=== PATIENT | male | born 1950 | race Caucasian/White ===

== ENCOUNTER 2019-09-14 09:56 | Inpatient (IN) | payer MEDICARE, BC, OTHER ==
[~2019-09-14] VITALS: Ht 172.7 cm; Wt 69.1 kg
[2019-09-14 12:55] VITALS: BP 137/77
[2019-09-14] MEDS ORDERED: ELIQ2.5T PO (13:14)
[2019-09-14] MEDS ORDERED: METO1TAB87 PO (13:14)
[2019-09-14] MEDS ORDERED: FLOR250C PO (13:14)
[2019-09-14] MEDS ORDERED: CALC667T2 PO (13:14)
[2019-09-14] MEDS ORDERED: FOLI1TAB11 PO (13:14)
[2019-09-14] MEDS ORDERED: FERR1TAB8 PO (13:14)
[2019-09-14] MEDS ORDERED: PANT40TA3 PO (13:14)
[2019-09-14] MEDS ORDERED: SODI650T PO (13:14)
[2019-09-14] MEDS ORDERED: CITA20TA7 PO (13:14)
[2019-09-14] MEDS ORDERED: LOPE1CAP5 PO (13:14)
[2019-09-14] MEDS ORDERED: AMLO5TAB6 PO (13:14)
[2019-09-14] MEDS ORDERED: ATOR40TA75 PO (13:14)
[2019-09-14] MEDS ORDERED: LEVE1INJ5 SQ (13:14)
[2019-09-14] MEDS ORDERED: RETA4000 INJ (13:14)
[2019-09-14] MEDS ORDERED: DEXTROSE 50% 50 ML SYRINGE IV PRN (13:45)
[2019-09-14] MEDS ORDERED: LOPERAMIDE 2 MG CAPLET PO PRN (13:45)
[2019-09-14] MEDS ORDERED: GLUCOSE 4 GM CHEW TABLET PO PRN (13:45)
[2019-09-14] MEDS ORDERED: GLUCAGON FOR INJ 1 MG VIAL (J1610) SC PRN (13:45)
[2019-09-14 13:57] LABS: HEMATOCRIT 30.8 % (42.0-52.0); HEMOGLOBIN 9.4 g/dl (13.5-17.5); MEAN CORPUSCULAR HEMOGLOBIN 30.1 pg (27.0-33.0); MEAN CORPUSCULAR HGB CONC 30.5 g/dl (32.0-36.5); MEAN CORPUSCULAR VOLUME 98.7 fl (80.0-96.0); PLATELET COUNT, AUTOMATED 381 10^3/uL (150-450); RED BLOOD COUNT 3.12 10^6/uL (4.30-6.10)
[2019-09-14 14:18] LABS: CREATININE FOR GFR 3.51 MG/DL (0.70-1.30); GLOMERULAR FILTRATION RATE 18.6 (>49); POTASSIUM SERUM 3.9 MEQ/L (3.5-5.1)
--- NOTE | 2019-09-14 14:42 | HPEPDOC ---
Commercial Lending Assistant Note DATE OF ADMISSION: 09-14-19 SOURCE OF ADMISSION INFORMATION: [facility] CHIEF COMPLAINT: stroke HISTORY OF PRESENT ILLNESS: 69M pmh PAD, HLD, HTN, DM, ESRD on HD, Colon Cancer s/p chemo/bowel resection In January 2019 with liver mets, Afib, diastolic CHF, chronic T10 and L1 compression fractures, ischemic stroke who presented to [facility] on 08-24-19 with right sided paresis, received tPA and later admitted to the stroke unit. MRI brain showed, Acute infarcts left M2 and GAMA territory with microhemorrhages in left M2 territory. CTA head and neck did not show large vessel occlusion, however there was noted to be 50-69% luminal diameter stenosis of the proximal right ICA secondary to calcified and soft plaque. His stroke was thought to be embolic in etiology with ECHO on 08-26-19 showing grade II diastolic dysfunctionmild aortic stenosis. He was started on Heparin and cleared by GI and neurology to tanisha bateman started on Eliquis. His AVF was malfunctioning for which a permacath was placed on 09-09-19 and he was instructed to have AVF replacement as outpatient with vascular surgery. 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 GI performed a colonoscopy and did not see significant ischemic changes. Infectious work-up was also negative. He was evaluated by therapy, found to have considerable deficits in mobility and ADL management and deemed medically appropriate for discharge to ARU on 09-14-19. On initial visit, patient states his last round of chemotherapy was provided in [facility] in early August and since then he has had diarrhea. REVIEW OF SYSTEMS: The following is a completed review of systems and has been reviewed. Review of systems otherwise unremarkable. PAIN: Patient self reports no pain EYES: No recent vision changes EARS, NOSE, & THROAT: No throat pain, or dysphagia, or rhinorrhea CARDIOVASCULAR: Denies chest pain or palpitations PULMONARY: Denies shortness of breath GASTROINTESTINAL: +diarrhea GENITOURINARY: denies dysuria MUSCULOSKELETAL:RLE>RUE weakness NEUROLOGICAL:+stroke HEMATOLOGICAL:+anemia SKIN: AVF and permacath PSYCHIATRIC: Unremarkable All other review of systems found to be negative. PAST MEDICAL HISTORY: as per HPI PAST SURGICAL HISTORY: HERNIA REPAIR, KNEE SURGERY, CHOLECYSTECTOMY, COLECTOMY COLONOSCOPY W/ POLYPECTOMY, AV FISTULA PLACEMENT ALLERGIES: Please see below. MEDICATIONS: Please see below. FAMILY HISTORY:diabetes SOCIAL HISTORY: +smokes cigars, no ETOH or illicit drugs DIET: renal PHYSICAL EXAMINATION: VITAL SIGNS: Please see below. GENERAL: Pleasant and cooperative. No acute distress. HEENT: PERRL. Extraocular movements intact. Clear conjunctiva CARDIOVASCULAR: Regular rate and rhythm. No murmurs, rubs, or gallops LUNGS: Clear to auscultation bilaterally. No wheezes. No rhonchi ABDOMEN: Soft, nontender, nondistended. Positive bowel sounds. Normal active bowel sounds NEUROLOGICAL: Alert and oriented times three. Cranial nerves II through XII grossly intact. Sensation grossly intact in all 3 limbs, except decreased to light touch RLE +mild expressive aphasia with word finding difficulty able to follow two-step commands +clonus right LE, brisk patellar reflex on right EXTREMITIES: 5\5 strength Left upper extremity, 4+/5 right UE 2/5 right hip flexors, knee extensors, 1/5 ankle DF, EHL, 2/5 PF 5/5 strength in left lower extremity. SKIN: Left IJ permacath, left AVF, no sacral ulcers LABORATORY DATA: Please see below. IMAGING:Imaging documentation personally reviewed by record FUNCTIONAL STATUS: Premorbid: Independent with all activities of daily life as well as mobility On Admission: Min- Maximum assistance for bathing, upper body dressing, bed chair and wheelchair transfers, toilet transfers, ambulation. GOALS: Mod-I functional transfers and household distances, dressing, toileting, supervision bathing, medical optimization, caregiver training. 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 Neuro: s/p left GAMA and M2 infarct in setting of Afib- c/u Eliquis 2.5mg BID, metoprolol, not on statin or ASA for secondary stroke prevention-will discuss with medicine -f/u outpatient neurology 3. Cardiac: grade 2 diastolic CHF with HTN and Afib- c/u metoprolol and Eliquis -will discuss statin and ASA with medicine who have been consulted to assist in management 4. Resp: encouage incentive spirometry 5. Renal: ESRD on HD // with recent episodes of hypokalamia- renal consulted 6. 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 GI: persistent diarrhea possible due to bowl ischemia vs reaction to recent chemotherapy -C diff and diarrhea panel negative -will check FOBT, c/u immodium, Bacid, and metamucil -hx of adenocarcinoma s/p resection and chemo- will need to follow-up with Oncologist 8. Endo: pmh DM c/u insulin therapy 9. : monitor PVRs 10. Psych: Celexa for depression 11. Dispo: TBD POST ADMISSION PHYSICIAN EVALUATION: Medical and functional status: Description of medical status, medical assessment: As above. Rehabilitation diagnosis and current and prior cold morbid medical conditions as above. Risk of complications and plans to mitigate them as above. Description of functional status current status is as above. Prior status as above. Status compared to preadmission: There are no clinically significant differences between the patient's current status and the information described on the preadmission screening document. Treatment plan anticipated: Treatment plan is as described above. Required disciplines including physical therapy, occupational therapy, others as noted above. Intensity of services: 3 hours a day, 6 days a week. Special considerations: There are no specific special or safety considerations that would likely preclude immediate implementation of an intensive rehabilitation program or subsequently influence the plan of care ATTESTATION: Considering all the information above, it is my best judgment that this patient requires intensive rehabilitation therapy as described above and an inpatient hospital environment due to the complexity of nursing, medical, and rehabilitation needs required by the patient. Furthermore, this patient can reasonably be expected to participate in an benefit from an inpatient rehabilitation stay with an interdisciplinary team approach to the delivery of rehabilitation care under the direction and supervision of rehabilitation physician. PROGNOSIS: Excellent. ESTIMATED LENGTH OF STAY:18-21 days. PROJECTED DISCHARGE DESTINATION: Home with family support and any durable medical equipment required to increase functional safety and mobility. TIME SPENT COUNSELING AND COORDINATING INITIAL CARE: Greater than 70 minutes. Vital Signs Vital Sign - Last 24 Hours 09/14/19 12:55 Temp 98.6 Pulse 85 Resp 16 B/P (MAP) 137/77 (97) Pulse Ox 100 O2 Delivery Room Air Laboratory Data CBC/BMP Laboratory Tests 09/14/19 13:30 Labs 24H Laboratory Tests 2 09/14/19 13:30: Nucleated Red Blood Cells % (auto) 0.0 Home Medications Scheduled Amlodipine Besylate (Amlodipine Besylate) 5 Mg Tablet, 5 MG PO DAILY, (Reported) HOME MEDICATION Apixaban (Eliquis) 2.5 Mg Tablet, 2.5 MG PO BID, (Reported) STARTED AT [facility] Atorvastatin Calcium (Atorvastatin Calcium) 40 Mg Tablet, 40 MG PO DAILY, (Reported) STARTED AT [facility] Calcium Acetate (Calcium Acetate) 667 Mg Tablet, 667 MG PO WM, (Reported) HOME MED Citalopram Hydrobromide (Citalopram HBr) 20 Mg Tablet, 20 MG PO DAILY, (Reported) HOME MED Epoetin Tyrone-Epbx (Retacrit) 4,000 Unit/1 Ml Vial, 8,000 UNIT INJ 3XW, (Reported) , , SAT Ferrous Sulfate (Ferrous Sulfate) 325 Mg Tablet, 325 MG PO DAILY, (Reported) STARTED AT [facility] Folic Acid (Folic Acid) 1 Mg Tablet, 1 MG PO DAILY, (Reported) HOME MED Insulin Detemir (Levemir Flextouch) 100 Unit/1 Ml Insuln.pen, 16 UNITS SQ BID, (Reported) HOME MED Metoprolol Tartrate (Metoprolol Tartrate) 25 Mg Tablet, 25 MG PO BID, (Reported) DOSE CHANGE AT [facility] - WAS ON TOPROL XL 50MG BID AT HOME Pantoprazole Sodium (Pantoprazole Sodium) 40 Mg Tablet.dr, 40 MG PO BID, (Reported) HOME MED Saccharomyces Boulardii (Florastor) 250 Mg Capsule, 250 MG PO BID, (Reported) STARTED AT [facility] Sodium Bicarbonate (Sodium Bicarbonate) 650 Mg Tablet, 1,300 MG PO TID, (Reported) STARTED AT [facility] Scheduled PRN Loperamide HCl (Loperamide) 2 Mg Capsule, 2 MG PO QID PRN for DIARRHEA, (Reported) STARTED AT [facility] Allergies Coded Allergies: enalapril (Verified Allergy, Unknown, 09/14/19) A-FIB/CHADSVASC A-FIB History Current/History of A-Fib/PAF?: Yes Current PO Anticoag Therapy: Yes VIANCA LEMUS MD Sep 14, 2019 14:42
[2019-09-14] MEDS ORDERED: CALCIUM ACETATE 667 MG GELCAP PO SCH (16:00)
--- NOTE | 2019-09-14 16:30 | CR ---
DATE OF CONSULTATION: 09/14/[address] ROBERTS CONSULTANTS: Hospitalist group Hospitalist group was consulted for general medical care. The patient was transferred from [facility] for rehabilitation. He had a complicated recent hospitalization that has been succinctly summarized by Dr. Roberts in her history and physical. The patient has end-stage renal disease, on dialysis, underwent partial colectomy with chemotherapy 01/27 for colon caner, liver metastases. He had a stroke 08/24/2019, presented with right hemiparesis, underwent thrombolysis. MRI showed acute infarcts, left M2 and GAMA territory with microhemorrhages in left M2 territory, is now on Eliquis. He has had some chronic diarrhea problems, had a recent colonoscopy. No significant ischemic changes were found. He had a CT angiogram that showed a 75% occlusion in the SMA, which was felt to be chronic. Recent echocardiogram 08/26/2019 showed mild aortic stenosis, grade 2 diastolic dysfunction, apparently normal ejection fraction. Other past medical history shows atrial fibrillation, history of a T10 and L1 compression fractures, chronic anemia, history of depression, type 2 diabetes now requiring insulin. MEDICATIONS: - Eliquis 2.5 mg twice a day - amlodipine 5 mg daily - atorvastatin 40 mg daily - calcium supplement - Celexa 20 mg daily - Retacrit 8000 units three times a week with dialysis - ferrous sulfate 325 mg daily - folic acid 1 mg daily - detemir insulin 16 units twice a day - loperamide 2 mg four times a day as needed - Lopressor 25 mg twice a day - Protonix 40 mg twice a day - probiotic supplement - sodium bicarbonate 1300 mg three times a day ALLERGIES: ENALAPRIL. SOCIAL HISTORY: Nonsmoker. No alcohol. He is . He lives in [place]. REVIEW OF SYSTEMS: He has some mild chronic abdominal pain. Denies hematemesis, epistaxis. He had some black stool recently. No polyuria or polydipsia. No chest pain. PHYSICAL EXAMINATION: Vital Signs: Per flow sheet. He is alert, conversant, in no distress. Mild right facial weakness. Pupils equal, round, and reactive to light. Tympanic membranes (TMs) normal, pharynx benign. Neck: No masses. Lungs: Clear. Heart: Regular rhythm, 1/6 systolic ejection murmur. Abdomen: Soft, nontender, no masses. Extremities: No clubbing, cyanosis, edema. Neurologic Exam: He had grade 4+ strength right upper extremity compared to 5/5 on the left, lower extremity is 3+ compared to 5/5 on the left side. LABORATORY: Sodium 134, potassium 3.9, creatinine 3.5. White count 16, hemoglobin 9.4, platelets 381. IMPRESSION: 1. Anemia with black stools. Stool has been checked for occult blood. Patient has been typed and screened. Repeat CBC has been ordered. Will continue Eliquis for now unless we see evidence of jasen significant bleeding. Should point out that should he have gastrointestinal (GI) bleeding, selective serotonin reuptake inhibitors (SSRIs), such as Celexa, increase the risk of GI bleeding, particularly in patients taking it anticoagulants. 2. Depression. As noted above, the Celexa might be contributing to the GI bleeding. Perhaps a different antidepressant could be considered. 3. Diabetes. Continue detemir insulin 10 units twice a day with sliding scale. 4. Atrial fibrillation, on Lopressor for rate control and blood pressure, as well as Eliquis. 5. Hyperlipidemia. He is on Lipitor 40 mg daily. 6. End-stage renal disease. Consult nephrology for dialysis. 7. Recent stroke. Avoid interrupting Eliquis unless there is significant bleeding. Rehabilitation per Dr. Roberts. Dr. Alvarado will be providing hospitalist for tomorrow.
[2019-09-14] MEDS: LACTOBACILLUS ACIDOPHILUS CAP (BACID) PO SCH ×2 (17:38→20:57)
[2019-09-14] MEDS: TETRAHYDROZOLINE OPHTH 0.05% 15 ML BTL OU SCH ×2 (17:38→20:59)
[2019-09-14] MEDS: SODIUM BICARBONATE 325 MG TAB PO SCH ×2 (17:38→20:57)
[2019-09-14] MEDS: HumaLOG INSULIN (NovoLOG) PER UNIT SC SCH ×2 (17:39→20:58)
[2019-09-14 20:00] VITALS: BP 133/81
[2019-09-14] MEDS: APIXABAN 2.5 MG TAB (ELIQUIS) PO SCH (20:57)
[2019-09-14] MEDS: PANTOPRAZOLE 40MG TAB (PROTONIX) PO SCH (20:57)
[2019-09-14] MEDS: METOPROLOL TART 25 MG TABLET PO SCH (20:58)
[2019-09-14] MEDS: LEVEMIR (INSULIN DETEMIR) 1 UNITS/0.01ML SC SCH (20:58)
[2019-09-15 06:00] VITALS: BP 137/76
[2019-09-15 07:41] LABS: BASO # 0.1 10^3/uL (0.0-0.2); BASO % 0.9 % (0.0-1.0); EOS # 0.1 10^3/uL (0.0-0.5); EOS % 0.9 % (0.0-3.0); HEMATOCRIT 27.1 % (42.0-52.0); HEMOGLOBIN 8.3 g/dl (13.5-17.5); LYMPH # 1.1 10^3/uL (1.5-5.0); LYMPH % 8.7 % (24.0-44.0); MEAN CORPUSCULAR HEMOGLOBIN 29.7 pg (27.0-33.0); MEAN CORPUSCULAR HGB CONC 30.6 g/dl (32.0-36.5); MEAN CORPUSCULAR VOLUME 97.1 fl (80.0-96.0); MONO # 1.1 10^3/uL (0.0-0.8); MONO % 9.1 % (0.0-5.0); NEUTROPHILS # 9.6 10^3/uL (1.5-8.5); NEUTROPHILS % 78.8 % (36.0-66.0); PLATELET COUNT, AUTOMATED 328 10^3/uL (150-450); RED BLOOD COUNT 2.79 10^6/uL (4.30-6.10); WHITE BLOOD COUNT 12.1 10^3/uL (4.0-10.0)
[2019-09-15 08:02] LABS: CALCIUM LEVEL 8.4 MG/DL (8.8-10.2); CREATININE FOR GFR 3.72 MG/DL (0.70-1.30); GLOMERULAR FILTRATION RATE 17.4 (>49); POTASSIUM SERUM 3.8 MEQ/L (3.5-5.1)
[2019-09-15] MEDS: LEVEMIR (INSULIN DETEMIR) 1 UNITS/0.01ML SC SCH ×2 (08:17→22:09)
[2019-09-15] MEDS: SODIUM BICARBONATE 325 MG TAB PO SCH (08:18)
[2019-09-15] MEDS: METOPROLOL TART 25 MG TABLET PO SCH ×2 (08:18→22:09)
[2019-09-15] MEDS: LACTOBACILLUS ACIDOPHILUS CAP (BACID) PO SCH ×3 (08:18→22:08)
[2019-09-15] MEDS: PANTOPRAZOLE 40MG TAB (PROTONIX) PO SCH ×2 (08:18→22:08)
[2019-09-15] MEDS: FOLIC ACID 1 MG TAB PO SCH (08:18)
[2019-09-15] MEDS: HumaLOG INSULIN (NovoLOG) PER UNIT SC SCH ×4 (08:18→21:00)
[2019-09-15] MEDS: ATORVASTATIN 20 MG TAB PO SCH (08:19)
[2019-09-15] MEDS: CALCIUM ACETATE 667 MG GELCAP PO SCH ×3 (08:19→17:38)
[2019-09-15] MEDS: CitaloPRAM (CeleXA) 20 MG TAB PO SCH (08:19)
[2019-09-15] MEDS: APIXABAN 2.5 MG TAB (ELIQUIS) PO SCH ×2 (08:19→22:08)
[2019-09-15] MEDS: TETRAHYDROZOLINE OPHTH 0.05% 15 ML BTL OU SCH ×3 (08:28→22:09)
[2019-09-15] MEDS: METAMUCIL (PSYLLIUM) PACKET PO SCH (08:28)
[2019-09-15] MEDS ORDERED: FLUBLOK(EGG FREE)(QUAD)INFLUENZA VACC 0.5ML SYRINGE (90682)18YRS&OLDER IM ONE (09:00)
[2019-09-15] MEDS ORDERED: FERROUS SULFATE 325MG TAB PO SCH (09:00)
[2019-09-15] MEDS ORDERED: DARBEPOETIN 100 MCG/0.5 ML *DIALYSIS* SYRINGE (J0882) IV SCH (09:00)
[2019-09-15] MEDS ORDERED: IRON SUCROSE 100MG 5ML VIAL (J1756 PER 1MG) IV SCH (09:00)
[2019-09-15 09:15] LABS: PERCENT SATURATION 15.2 % (19.7-50.0); PHOSPHORUS LEVEL 3.7 MG/DL (2.5-4.9)
[2019-09-15] MEDS ORDERED: HEPARIN 1,000 UNITS/ML 10ML VIAL (FOR RADIOLOGY& DIALYSIS ONLY) IV ONE (10:15)
[2019-09-15] MEDS ORDERED: HEPARIN 1,000 UNITS/ML 10ML VIAL (FOR RADIOLOGY& DIALYSIS ONLY) XX ONE (10:15)
[2019-09-15 11:28] LABS: PTH INTACT 106.1 PG/ML (18.5-88.0)
--- NOTE | 2019-09-15 12:16 | CR ---
DATE OF CONSULTATION: 09/15/2019 REQUESTING PHYSICIAN: Dr. Samantha Roberts. CONSULTING PHYSICIAN: Dr. Kaye. REASON FOR CONSULTATION: Management of end-stage renal disease on hemodialysis. CHIEF COMPLAINT: The patient was admitted to the rehab after a stroke. HISTORY OF PRESENT ILLNESS: Mr. Rocael Dunlap is a 69-year-old male with past medical history of end-stage renal disease on hemodialysis Saturday, Saturday, Saturday as outpatient but Saturday, , Saturday as inpatient, diabetes mellitus type 2, hypertension, hyperlipidemia, multiple other comorbidities as mentioned below. He had an ischemic stroke and he was admitted at [facility] on August 24, 2019 with right-sided paresis. After further workup and stabilization, the patient was started on Eliquis. He was dialyzed and when he was stable, he was discharged to the rehab unit at [facility]. Nephrology service was called for further help in the management of end-stage renal disease. I saw and evaluated the patient at the bedside this morning. He is afebrile and hemodynamically stable. He is able to answer just questions but he has difficulty with his speech. He otherwise follows commands. The patient reports that his left forearm arteriovenous (AV) fistula stopped working and he got the left internal jugular (IJ) tunneled hemodialysis catheter placed for dialysis, which is being used now. The patient is originally from [place]. PAST MEDICAL HISTORY: Past medical history of end-stage renal disease on hemodialysis started about 1 year ago, diabetes mellitus type 2, hypertension, hyperlipidemia with peripheral vascular disease history of carcinoma of the colon status post bowel resection and currently on chemotherapy. He has liver mets as well. Atrial fibrillation, chronic diastolic congestive heart failure, chronic T10 and L1 compression fractures and recent ischemic stroke in August 2019. The patient is undergoing chemotherapy in his work for carcinoma of the colon. PAST SURGICAL HISTORY Status post left IJ tunneled hemodialysis catheter placement on September 09, 2019, history of left forearm AV fistula which is not functioning now. History of hernia repair. Knee surgery status post cholecystectomy status post colectomy. ALLERGIES: The patient is allergic to ENALAPRIL. FAMILY HISTORY: No significant family history of end-stage renal disease requiring hemodialysis. SOCIAL HISTORY: There is no history of illicit drug abuse or alcohol abuse. He is a cigar smoker. REVIEW OF SYSTEMS: CONSTITUTIONAL: He denies any fevers or chills. EYES: He denies any blurry vision, double vision. ENT: Denies any dysphagia, odynophagia. CARDIOVASCULAR: Denies any chest pain or palpitation. RESPIRATORY: Denies any shortness of breath. GASTROINTESTINAL (GI): Denies any nausea, vomiting, but he does report history of CA of the colon with mets to the liver and getting chemotherapy. GENITOURINARY: He denies any dysuria or hematuria. MUSCULOSKELETAL: He reports right leg weakness. SKIN: He denies any rashes or ulcers. CENTRAL NERVOUS SYSTEM (QA AUDITOR): He reports the recent stroke and difficulty with speech. PSYCH: He denies any depression or anxiety. HEMATOLOGY/ONCOLOGY: He denies any easy bleeding or bruising. All other review of systems is negative. PHYSICAL EXAMINATION: GENERAL: The patient is awake, alert, oriented times three, laying in bed in no apparent distress. VITAL SIGNS: Temperature is 98.2 degrees Fahrenheit, blood pressure 137/76, pulse is 79, respiratory of 18, saturating 93% on room air. HEAD AND NECK EXAM: Extraocular muscles intact. Pupils equally round and reactive to light. Mucous membranes are moist. NECK: Neck is supple. There is no jugular venous distention (JVD). He has a left IJ tunneled hemodialysis catheter. CARDIOVASCULAR: S1, S2 regular rate. No edema of the bilateral lower extremities. RESPIRATORY: Chest is clear to auscultation bilaterally. Bilateral equal air entry. No rales or rhonchi. ABDOMEN: Soft, positive bowel sounds. Nontender. No organomegaly. GENITOURINARY: Bladder is not palpable. No hernia noted. He has old incision yaa and suprapubic region in the abdomen. MUSCULOSKELETAL: No clubbing or cyanosis. His power is at 2.5 in the right lower extremity. QA AUDITOR: The patient has right lower extremity weakness but power is hardly 2.5, otherwise far is 5/5 of the extremities and the patient has difficulty with speech and difficulty finding words SKIN: No rashes or ulcers. PSYCH: Normal mood and affect. LAB REVIEW: CBC showed WBC 12.1, hemoglobin 8.3, platelets are 328. BMP showed sodium 135, potassium 3.8, chloride 99, bicarb 29, BUN 31, creatinine is 3.7, glucose 98, phosphorus 3.7, iron is 31, transferrin saturation 15.2, ferritin is 345. Microbiology: Blood cultures are pending. CURRENT INPATIENT MEDICATIONS. The patient's current medications include: - Eliquis 2.5 mg by mouth twice a day - Lipitor 40 mg by mouth daily - PhosLo 667 mg by mouth with meals - Celexa 20 mg by mouth daily. I have started him on Aranesp 100 mcg IV with hemodialysis. I have stopped his oral iron. - He is on folic acid 1 mg by mouth daily. - insulin Levemir 10 units subcu twice a day - insulin lispro sliding scale. - I have started him on Venofer 100 mg IV with hemodialysis. - He is getting Imodium as needed for diarrhea. He is on metoprolol 25 mg by mouth twice a day - Protonix 40 mg by mouth twice a day. - He is on Metamucil 1 packet by mouth daily. I have stopped his sodium bicarbonate tablets which he was getting 1300 mg by mouth three times a day. ASSESSMENT: 69-year-old male with history of end-stage renal disease on hemodialysis, history of diabetes mellitus type 2, hypertension, CA colon status post colectomy and currently on chemotherapy admitted to rehab after a cerebrovascular accident (CVA) with right hemiparesis. PLAN: 1. End-stage renal disease on hemodialysis: The patient is getting a Saturday, and Saturday dialysis as inpatient. He will be dialyzed today in the afternoon. Ultrafiltration goal will be around the 1.5 liters as tolerated by his blood pressure. Continue the use of catheter at this time. The patient will get the AV fistula as outpatient once he is discharged from the hospital. 2. Anemia in end-stage renal disease: The patient has iron deficiency. I have started him on Venofer 100 mg IV with each dialysis x10 doses and he has also been started on Aranesp. No urgent need of blood transfusion at this time. 3. Hyponatremia: It is secondary to renal failure. Sodium level should improve with dialysis and fluid removal. 4. Metabolic acidosis: The patient's metabolic acidosis will be controlled with dialysis. He does not need to continue the oral sodium bicarbonate. I have stopped the bicarb carbonate tablets. 5. Chronic kidney disease, mineral bone disease. Continue current dose of PhosLo 667 mg by mouth with meals. Phosphorus level done today is 3.7 which is optimal. I have ordered a PTH level and result is still pending. 6. Diabetes mellitus type 2: Okay to continue insulin sliding scale and Levemir. Avoid use of metformin. 7. Acute CVA with history of atrial fibrillation. The patient is currently on Eliquis and metoprolol. He is also on Lipitor 40 mg by mouth daily. Rest of the management is as per medical service and rehabilitation. 8. CA of the colon with mets to the liver. The patient is currently on chemotherapy as outpatient. He has an [id number] in the left anterior chest wall. He needs to be evaluated by oncology. He gets chemotherapy done in [place]. Thank you for involving me in the care of this patient. I shall be happy to follow the patient along with you while he is in the rehab.
[2019-09-15 21:30] VITALS: BP 130/60
[2019-09-16 06:00] VITALS: BP 135/71
[2019-09-16] MEDS: HumaLOG INSULIN (NovoLOG) PER UNIT SC SCH ×4 (07:30→21:00)
[2019-09-16 08:10] LABS: BASO # 0.2 10^3/uL (0.0-0.2); BASO % 1.4 % (0.0-1.0); EOS # 0.1 10^3/uL (0.0-0.5); HEMATOCRIT 27.6 % (42.0-52.0); HEMOGLOBIN 8.4 g/dl (13.5-17.5); LYMPH # 1.1 10^3/uL (1.5-5.0); LYMPH % 10.3 % (24.0-44.0); MEAN CORPUSCULAR HEMOGLOBIN 29.6 pg (27.0-33.0); MEAN CORPUSCULAR HGB CONC 30.4 g/dl (32.0-36.5); MEAN CORPUSCULAR VOLUME 97.2 fl (80.0-96.0); MONO # 1.1 10^3/uL (0.0-0.8); MONO % 10.1 % (0.0-5.0); NEUTROPHILS # 8.2 10^3/uL (1.5-8.5); PLATELET COUNT, AUTOMATED 289 10^3/uL (150-450); RED BLOOD COUNT 2.84 10^6/uL (4.30-6.10); WHITE BLOOD COUNT 10.8 10^3/uL (4.0-10.0)
[2019-09-16] MEDS: ATORVASTATIN 20 MG TAB PO SCH (08:31)
[2019-09-16] MEDS: PANTOPRAZOLE 40MG TAB (PROTONIX) PO SCH ×2 (08:31→21:29)
[2019-09-16] MEDS: FOLIC ACID 1 MG TAB PO SCH (08:31)
[2019-09-16] MEDS: APIXABAN 2.5 MG TAB (ELIQUIS) PO SCH ×2 (08:31→21:29)
[2019-09-16] MEDS: LACTOBACILLUS ACIDOPHILUS CAP (BACID) PO SCH ×3 (08:31→21:30)
[2019-09-16] MEDS: CALCIUM ACETATE 667 MG GELCAP PO SCH ×3 (08:31→16:48)
[2019-09-16] MEDS: TETRAHYDROZOLINE OPHTH 0.05% 15 ML BTL OU SCH ×3 (08:32→21:30)
[2019-09-16] MEDS: CitaloPRAM (CeleXA) 20 MG TAB PO SCH (08:32)
[2019-09-16] MEDS: LEVEMIR (INSULIN DETEMIR) 1 UNITS/0.01ML SC SCH ×2 (08:32→21:30)
[2019-09-16] MEDS: METAMUCIL (PSYLLIUM) PACKET PO SCH (08:32)
[2019-09-16] MEDS: METOPROLOL TART 25 MG TABLET PO SCH ×2 (08:32→21:00)
[2019-09-16 08:39] LABS: CALCIUM LEVEL 9.1 MG/DL (8.8-10.2); CREATININE FOR GFR 2.71 MG/DL (0.70-1.30); POTASSIUM SERUM 3.9 MEQ/L (3.5-5.1)
[2019-09-16 09:02] LABS: HEPATITIS B SURFACE ANTIBODY POSITIVE (POSITIVE)
[2019-09-16 09:10] LABS: HEPATITIS B SURFACE ANTIGEN NEGATIVE (NEGATIVE)
[2019-09-16 09:38] LABS: HEPATITIS B CORE ANTIBODY IGM NEGATIVE (NEGATIVE)
[2019-09-16 14:00] VITALS: BP 113/74
--- NOTE | 2019-09-16 15:35 | IPNPDOC ---
PM&R Progress Note DATE OF SERVICE: Sep 15, 2019 Client Finance Analyst Progress Note Subjective: Patient seen in his room stating he slept well and he feels ok today. He has a skin tear on his left arm from the prior hospital. REVIEW OF SYSTEMS: The following is a completed review of systems and has been reviewed. Review of systems otherwise unremarkable. PAIN: Patient self reports no pain EYES: No recent vision changes EARS, NOSE, & THROAT: No throat pain, or dysphagia, or rhinorrhea CARDIOVASCULAR: Denies chest pain or palpitations PULMONARY: Denies shortness of breath GASTROINTESTINAL: +diarrhea GENITOURINARY: denies dysuria MUSCULOSKELETAL:RLE>RUE weakness NEUROLOGICAL:+stroke HEMATOLOGICAL:+anemia SKIN: AVF and permacath, left forearm skin tear PSYCHIATRIC: Unremarkable All other review of systems found to be negative. PHYSICAL EXAMINATION: VITAL SIGNS: Please see below. GENERAL: Pleasant and cooperative. No acute distress. HEENT: PERRL. Extraocular movements intact. Clear conjunctiva CARDIOVASCULAR: Regular rate and rhythm. No murmurs, rubs, or gallops LUNGS: Clear to auscultation bilaterally. No wheezes. No rhonchi ABDOMEN: Soft, nontender, nondistended. Positive bowel sounds. Normal active bowel sounds NEUROLOGICAL: Alert and oriented times three. Cranial nerves II through XII grossly intact. Sensation grossly intact in all 3 limbs, except decreased to light touch RLE +mild expressive aphasia with word finding difficulty able to follow two-step commands +clonus right LE, brisk patellar reflex on right EXTREMITIES: 5\5 strength Left upper extremity, 4+/5 right UE 2/5 right hip flexors, knee extensors, 1/5 ankle DF, EHL, 2/5 PF 5/5 strength in left lower extremity. 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 Neuro: s/p left GAMA and M2 infarct in setting of Afib- c/u Eliquis 2.5mg BID, metoprolol, not on statin or ASA for secondary stroke prevention-will discuss with medicine -f/u outpatient neurology 3. Cardiac: grade 2 diastolic CHF with HTN and Afib- c/u metoprolol and Eliquis -will discuss statin and ASA with medicine who have been consulted to assist in management 4. Resp: encourage incentive spirometry 5. Renal: ESRD on HD // with recent episodes of hypokalemia- renal consulted 6. 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 GI: persistent diarrhea possible due to bowl ischemia vs reaction to recent chemotherapy- no diarrhea today -C diff and diarrhea panel negative -will check FOBT, c/u immodium, Bacid, and metamucil -hx of adenocarcinoma s/p resection and chemo- will need to follow-up with Oncologist 8. Endo: pmh DM c/u insulin therapy 9. : monitor PVRs 10. Psych: Celexa for depression 11. Dispo: TBD Allergies Coded Allergies: enalapril (Verified Allergy, Unknown, 09/14/19) Vital Signs Vital Signs Date Time Temp Pulse Resp B/P (MAP) Pulse Ox O2 Delivery O2 Flow Rate FiO2 09/16/19 14:00 97.0 72 18 113/74 (87) 92 Room Air Laboratory Data CBC/BMP Laboratory Tests 09/16/19 07:49 Labs 24H Laboratory Tests 2 09/15/19 17:29: Bedside Glucose (Misc Panel) 66L 09/15/19 21:59: Bedside Glucose (Misc Panel) 126H 09/16/19 06:34: Bedside Glucose (Misc Panel) 75L 09/16/19 07:49: Immature Granulocyte % (Auto) 1.2, Neutrophils (%) (Auto) 76.0H, Lymphocytes (%) (Auto) 10.3L, Monocytes (%) (Auto) 10.1H, Eosinophils (%) (Auto) 1.0, Basophils (%) (Auto) 1.4H, Neutrophils # (Auto) 8.2, Lymphocytes # (Auto) 1.1L, Monocytes # (Auto) 1.1H, Eosinophils # (Auto) 0.1, Basophils # (Auto) 0.2, Nucleated Red Blood Cells % (auto) 0.0, Anion Gap 5L, Glomerular Filtration Rate 25.0L, Calcium Level 9.1 09/16/19 13:03: Bedside Glucose (Misc Panel) 128H Microbiology Microbiology 09/14/19 Blood Culture - Preliminary, Resulted No Growth after 48 hours. All Specime... 09/14/19 Blood Culture - Preliminary, Resulted No Growth after 48 hours. All Specime... Current Medications Current Medications Current Medications Medications (Trade) Dose Ordered Sig/Leilani Route PRN Reason Start Time Stop Time Status Last Admin Dose Admin Apixaban (Eliquis) 2.5 mg BID PO 09/14/19 21:00 09/16/19 08:31 Atorvastatin Calcium (Lipitor) 40 mg DAILY PO 09/15/19 09:00 09/16/19 08:31 Calcium Acetate (Phoslo) 667 mg TID PO 09/14/19 16:00 09/14/19 20:30 DC 09/14/19 17:38 Calcium Acetate (Phoslo) 667 mg WM PO 09/15/19 08:00 09/16/19 14:08 Citalopram Hydrobromide (CeleXA) 20 mg DAILY PO 09/15/19 09:00 09/16/19 08:32 Darbepoetin [place] (Aranesp (Dialysis Use)) 200 mcg HD IV 09/15/19 09:00 Dextrose (Dextrose 50%) 25 ml ASDIRECTED PRN IV SEE LABEL COMMENTS 09/14/19 13:45 Ferrous Sulfate (Ferrous Sulfate) 325 mg DAILY PO 09/15/19 09:00 09/15/19 08:54 DC 09/15/19 08:19 Folic Acid (Folic Acid) 1 mg DAILY PO 09/15/19 09:00 09/16/19 08:31 Glucagon (Glucagon) 1 mg ASDIRECTED PRN SC SEE LABEL COMMENTS 09/14/19 13:45 Glucose (Glucose) 16 GM ASDIRECTED PRN PO SEE LABEL COMMENTS 09/14/19 13:45 Home Med (Med Rec Complete!) ASDIRECTED XX 09/14/19 13:15 09/14/19 13:16 DC Insulin Detemir (Levemir Insulin) 10 units BID SC 09/14/19 21:00 09/15/19 22:09 Insulin Human Lispro (HumaLOG INSULIN) SEE PROTOCOL TABLE AC SC 09/14/19 17:30 09/16/19 14:09 Insulin Human Lispro (HumaLOG INSULIN) SEE PROTOCOL TABLE QHS SC 09/14/19 21:00 Iron (Venofer) 100 mg HD IV 09/15/19 09:00 09/24/19 09:01 Lactobacillus Acidophilus (Bacid) 1 ea TID PO 09/14/19 16:00 09/16/19 08:31 Loperamide HCl (Imodium) 2 mg ASDIRECTED PRN PO DIARRHEA 09/14/19 13:45 09/14/19 17:41 Metoprolol Tartrate (Lopressor) 25 mg BID PO 09/14/19 21:00 09/16/19 08:32 Pantoprazole Sodium (Protonix) 40 mg BID PO 09/14/19 21:00 09/16/19 08:31 Psyllium Hydrophilic Mucilloid (Metamucil) 1 pkt DAILY PO 09/15/19 09:00 Sodium Bicarbonate (Sodium Bicarbonate) 1,300 mg TID PO 09/14/19 16:00 09/15/19 08:54 DC 09/15/19 08:18 Tetrahydrozoline HCl (Visine) 1 drop TID OU 09/14/19 16:00 09/16/19 08:32 VIANCA LEMUS MD Sep 16, 2019 15:35
--- NOTE | 2019-09-16 15:39 | IPNPDOC ---
PM&R Progress Note DATE OF SERVICE: Sep 16, 2019 Power Wheelchair Mechanic Progress Note Subjective: Patient seen in his room stating he had a hard bowel movement today and that his diarrhea seems to have resolved. REVIEW OF SYSTEMS: The following is a completed review of systems and has been reviewed. Review of systems otherwise unremarkable. PAIN: Patient self reports no pain EYES: No recent vision changes EARS, NOSE, & THROAT: No throat pain, or dysphagia, or rhinorrhea CARDIOVASCULAR: Denies chest pain or palpitations PULMONARY: Denies shortness of breath GASTROINTESTINAL: +diarrhea GENITOURINARY: denies dysuria MUSCULOSKELETAL:RLE>RUE weakness NEUROLOGICAL:+stroke HEMATOLOGICAL:+anemia SKIN: AVF and permacath, left forearm skin tear PSYCHIATRIC: Unremarkable All other review of systems found to be negative. PHYSICAL EXAMINATION: VITAL SIGNS: Please see below. GENERAL: Pleasant and cooperative. No acute distress. HEENT: PERRL. Extraocular movements intact. Clear conjunctiva CARDIOVASCULAR: Regular rate and rhythm. No murmurs, rubs, or gallops LUNGS: Clear to auscultation bilaterally. No wheezes. No rhonchi ABDOMEN: Soft, nontender, nondistended. Positive bowel sounds. Normal active bowel sounds NEUROLOGICAL: Alert and oriented times three. Cranial nerves II through XII grossly intact. Sensation grossly intact in all 3 limbs, except decreased to light touch RLE +mild expressive aphasia with word finding difficulty able to follow two-step commands +clonus right LE, brisk patellar reflex on right EXTREMITIES: 5\5 strength Left upper extremity, 4+/5 right UE 2/5 right hip flexors, knee extensors, 1/5 ankle DF, EHL, 2/5 PF 5/5 strength in left lower extremity. 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 Neuro: s/p left GAMA and M2 infarct in setting of Afib- c/u Eliquis 2.5mg BID, metoprolol, not on statin or ASA for secondary stroke prevention-will discuss with medicine -f/u outpatient neurology 3. Cardiac: grade 2 diastolic CHF with HTN and Afib- c/u metoprolol and Eliquis -will discuss statin and ASA with medicine who have been consulted to assist in management 4. Resp: encourage incentive spirometry 5. Renal: ESRD on HD // with recent episodes of hypokalemia- renal consulted 6. 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 GI: persistent diarrhea possible due to bowl ischemia vs reaction to recent chemotherapy- no diarrhea today -C diff and diarrhea panel negative -will check FOBT, c/u immodium prn, Bacid, and metamucil, will consider adding stool softeners -hx of adenocarcinoma s/p resection and chemo- will need to follow-up with Oncologist 8. Endo: pmh DM c/u insulin therapy 9. : monitor PVRs 10. Psych: Celexa for depression 11. Dispo: TBD Allergies Coded Allergies: enalapril (Verified Allergy, Unknown, 09/14/19) Vital Signs Vital Signs Date Time Temp Pulse Resp B/P (MAP) Pulse Ox O2 Delivery O2 Flow Rate FiO2 09/16/19 14:00 97.0 72 18 113/74 (87) 92 Room Air Laboratory Data CBC/BMP Laboratory Tests 09/16/19 07:49 Labs 24H Laboratory Tests 2 09/15/19 17:29: Bedside Glucose (Misc Panel) 66L 09/15/19 21:59: Bedside Glucose (Misc Panel) 126H 09/16/19 06:34: Bedside Glucose (Misc Panel) 75L 09/16/19 07:49: Immature Granulocyte % (Auto) 1.2, Neutrophils (%) (Auto) 76.0H, Lymphocytes (%) (Auto) 10.3L, Monocytes (%) (Auto) 10.1H, Eosinophils (%) (Auto) 1.0, Basophils (%) (Auto) 1.4H, Neutrophils # (Auto) 8.2, Lymphocytes # (Auto) 1.1L, Monocytes # (Auto) 1.1H, Eosinophils # (Auto) 0.1, Basophils # (Auto) 0.2, Nucleated Red Blood Cells % (auto) 0.0, Anion Gap 5L, Glomerular Filtration Rate 25.0L, Calcium Level 9.1 09/16/19 13:03: Bedside Glucose (Misc Panel) 128H Microbiology Microbiology 09/14/19 Blood Culture - Preliminary, Resulted No Growth after 48 hours. All Specime... 09/14/19 Blood Culture - Preliminary, Resulted No Growth after 48 hours. All Specime... Current Medications Current Medications Current Medications Medications (Trade) Dose Ordered Sig/Leilani Route PRN Reason Start Time Stop Time Status Last Admin Dose Admin Apixaban (Eliquis) 2.5 mg BID PO 09/14/19 21:00 09/16/19 08:31 Atorvastatin Calcium (Lipitor) 40 mg DAILY PO 09/15/19 09:00 09/16/19 08:31 Calcium Acetate (Phoslo) 667 mg TID PO 09/14/19 16:00 09/14/19 20:30 DC 09/14/19 17:38 Calcium Acetate (Phoslo) 667 mg WM PO 09/15/19 08:00 09/16/19 14:08 Citalopram Hydrobromide (CeleXA) 20 mg DAILY PO 09/15/19 09:00 09/16/19 08:32 Darbepoetin [place] (Aranesp (Dialysis Use)) 200 mcg HD IV 09/15/19 09:00 Dextrose (Dextrose 50%) 25 ml ASDIRECTED PRN IV SEE LABEL COMMENTS 09/14/19 13:45 Ferrous Sulfate (Ferrous Sulfate) 325 mg DAILY PO 09/15/19 09:00 09/15/19 08:54 DC 09/15/19 08:19 Folic Acid (Folic Acid) 1 mg DAILY PO 09/15/19 09:00 09/16/19 08:31 Glucagon (Glucagon) 1 mg ASDIRECTED PRN SC SEE LABEL COMMENTS 09/14/19 13:45 Glucose (Glucose) 16 GM ASDIRECTED PRN PO SEE LABEL COMMENTS 09/14/19 13:45 Home Med (Med Rec Complete!) ASDIRECTED XX 09/14/19 13:15 09/14/19 13:16 DC Insulin Detemir (Levemir Insulin) 10 units BID SC 09/14/19 21:00 09/15/19 22:09 Insulin Human Lispro (HumaLOG INSULIN) SEE PROTOCOL TABLE AC SC 09/14/19 17:30 09/16/19 14:09 Insulin Human Lispro (HumaLOG INSULIN) SEE PROTOCOL TABLE QHS SC 09/14/19 21:00 Iron (Venofer) 100 mg HD IV 09/15/19 09:00 09/24/19 09:01 Lactobacillus Acidophilus (Bacid) 1 ea TID PO 09/14/19 16:00 09/16/19 08:31 Loperamide HCl (Imodium) 2 mg ASDIRECTED PRN PO DIARRHEA 09/14/19 13:45 09/14/19 17:41 Metoprolol Tartrate (Lopressor) 25 mg BID PO 09/14/19 21:00 09/16/19 08:32 Pantoprazole Sodium (Protonix) 40 mg BID PO 09/14/19 21:00 09/16/19 08:31 Psyllium Hydrophilic Mucilloid (Metamucil) 1 pkt DAILY PO 09/15/19 09:00 Sodium Bicarbonate (Sodium Bicarbonate) 1,300 mg TID PO 09/14/19 16:00 09/15/19 08:54 DC 09/15/19 08:18 Tetrahydrozoline HCl (Visine) 1 drop TID OU 09/14/19 16:00 09/16/19 08:32 VIANCA LEMUS MD Sep 16, 2019 15:39
[2019-09-16 19:45] VITALS: BP 131/67
[2019-09-17 05:10] VITALS: BP 130/64
[2019-09-17] MEDS: HumaLOG INSULIN (NovoLOG) PER UNIT SC SCH ×4 (07:30→21:00)
[2019-09-17] MEDS: LACTOBACILLUS ACIDOPHILUS CAP (BACID) PO SCH ×3 (08:54→20:24)
[2019-09-17] MEDS: CALCIUM ACETATE 667 MG GELCAP PO SCH ×3 (08:54→17:35)
[2019-09-17] MEDS: CitaloPRAM (CeleXA) 20 MG TAB PO SCH (08:55)
[2019-09-17] MEDS: METOPROLOL TART 25 MG TABLET PO SCH ×2 (08:55→20:24)
[2019-09-17] MEDS: APIXABAN 2.5 MG TAB (ELIQUIS) PO SCH ×2 (08:55→20:24)
[2019-09-17] MEDS: FOLIC ACID 1 MG TAB PO SCH (08:55)
[2019-09-17] MEDS: PANTOPRAZOLE 40MG TAB (PROTONIX) PO SCH ×2 (08:55→20:24)
[2019-09-17] MEDS: ATORVASTATIN 20 MG TAB PO SCH ×2 (08:56→20:24)
[2019-09-17] MEDS: LEVEMIR (INSULIN DETEMIR) 1 UNITS/0.01ML SC SCH ×2 (09:00→20:25)
[2019-09-17] MEDS: METAMUCIL (PSYLLIUM) PACKET PO SCH (09:00)
[2019-09-17] MEDS: TETRAHYDROZOLINE OPHTH 0.05% 15 ML BTL OU SCH ×3 (09:01→20:25)
[2019-09-17] MEDS ORDERED: HEPARIN 1,000 UNITS/ML 10ML VIAL (FOR RADIOLOGY& DIALYSIS ONLY) XX ONE (10:45)
[2019-09-17] MEDS ORDERED: HEPARIN 1,000 UNITS/ML 10ML VIAL (FOR RADIOLOGY& DIALYSIS ONLY) IV ONE (10:45)
--- NOTE | 2019-09-17 12:25 | IPNPDOC ---
PM&R Progress Note DATE OF SERVICE: Sep 17, 2019 Knocker Off Progress Note Subjective: Patient seen in the gym walking, able to carry his right leg through until he fatigues. He repots he feels well today and believes he is getting worked hard. REVIEW OF SYSTEMS: The following is a completed review of systems and has been reviewed. Review of systems otherwise unremarkable. PAIN: Patient self reports no pain EYES: No recent vision changes EARS, NOSE, & THROAT: No throat pain, or dysphagia, or rhinorrhea CARDIOVASCULAR: Denies chest pain or palpitations PULMONARY: Denies shortness of breath GASTROINTESTINAL: +diarrhea GENITOURINARY: denies dysuria MUSCULOSKELETAL:RLE>RUE weakness NEUROLOGICAL:+stroke HEMATOLOGICAL:+anemia SKIN: AVF and permacath, left forearm skin tear PSYCHIATRIC: Unremarkable All other review of systems found to be negative. PHYSICAL EXAMINATION: VITAL SIGNS: Please see below. GENERAL: Pleasant and cooperative. No acute distress. HEENT: PERRL. Extraocular movements intact. Clear conjunctiva CARDIOVASCULAR: Regular rate and rhythm. No murmurs, rubs, or gallops LUNGS: Clear to auscultation bilaterally. No wheezes. No rhonchi ABDOMEN: Soft, nontender, nondistended. Positive bowel sounds. Normal active bowel sounds NEUROLOGICAL: Alert and oriented times three. Cranial nerves II through XII grossly intact. Sensation grossly intact in all 3 limbs, except decreased to light touch RLE +mild expressive aphasia with word finding difficulty able to follow two-step commands +clonus right LE, brisk patellar reflex on right EXTREMITIES: 5\5 strength Left upper extremity, 4+/5 right UE 2/5 right hip flexors, knee extensors, 1/5 ankle DF, EHL, 2/5 PF 5/5 strength in left lower extremity. 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 Neuro: s/p left GAMA and M2 infarct in setting of Afib- c/u Eliquis 2.5mg BID, metoprolol, will start ASa and statin for secondary stroke prevention- discussed with medicine -f/u outpatient neurology 3. Cardiac: grade 2 diastolic CHF with HTN and Afib- c/u metoprolol and Eliquis 2.5 BID, ASA and Lipitor, discussed with medicine 4. Resp: encourage incentive spirometry 5. Renal: ESRD on HD // with recent episodes of hypokalemia- renal consulted 6. 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 GI: persistent diarrhea possible due to bowl ischemia vs reaction to recent chemotherapy -C diff and diarrhea panel negative -will check FOBT, c/u immodium prn, Bacid, and metamucil, will consider adding stool softeners -hx of adenocarcinoma s/p resection and chemo- will need to follow-up with Oncologist 8. Heme: anemia of chronic disease- FOBT negative 8. Endo: pmh DM c/u insulin therapy 9. : monitor PVRs 10. Psych: Celexa for depression 11. Dispo: 09-29-19 to home, progressing towards goals Allergies Coded Allergies: enalapril (Verified Allergy, Unknown, 09/14/19) Vital Signs Vital Signs Date Time Temp Pulse Resp B/P (MAP) Pulse Ox O2 Delivery O2 Flow Rate FiO2 09/17/19 08:55 88 130/64 09/17/19 05:10 98.8 18 93 Room Air Laboratory Data Labs 24H Laboratory Tests 2 09/16/19 13:03: Bedside Glucose (Misc Panel) 128H 09/16/19 16:38: Bedside Glucose (Misc Panel) 142H 09/16/19 20:03: Bedside Glucose (Misc Panel) 129H 09/17/19 05:10: Bedside Glucose (Misc Panel) 98 Microbiology Microbiology 09/17/19 Stool Occult Blood (MALU) - Final, Complete 09/14/19 Blood Culture - Preliminary, Resulted No Growth after 48 hours. All Specime... 09/14/19 Blood Culture - Preliminary, Resulted No Growth after 48 hours. All Specime... Current Medications Current Medications Current Medications Medications (Trade) Dose Ordered Sig/Leilani Route PRN Reason Start Time Stop Time Status Last Admin Dose Admin Apixaban (Eliquis) 2.5 mg BID PO 09/14/19 21:00 09/17/19 08:55 Atorvastatin Calcium (Lipitor) 40 mg DAILY PO 09/15/19 09:00 09/17/19 08:56 Calcium Acetate (Phoslo) 667 mg TID PO 09/14/19 16:00 09/14/19 20:30 DC 09/14/19 17:38 Calcium Acetate (Phoslo) 667 mg WM PO 09/15/19 08:00 09/17/19 08:54 Citalopram Hydrobromide (CeleXA) 20 mg DAILY PO 09/15/19 09:00 09/17/19 08:55 Darbepoetin Tyrone (Aranesp (Dialysis Use)) 200 mcg HD IV 09/15/19 09:00 Dextrose (Dextrose 50%) 25 ml ASDIRECTED PRN IV SEE LABEL COMMENTS 09/14/19 13:45 Ferrous Sulfate (Ferrous Sulfate) 325 mg DAILY PO 09/15/19 09:00 09/15/19 08:54 DC 09/15/19 08:19 Folic Acid (Folic Acid) 1 mg DAILY PO 09/15/19 09:00 09/17/19 08:55 Glucagon (Glucagon) 1 mg ASDIRECTED PRN SC SEE LABEL COMMENTS 09/14/19 13:45 Glucose (Glucose) 16 GM ASDIRECTED PRN PO SEE LABEL COMMENTS 09/14/19 13:45 Home Med (Med Rec Complete!) ASDIRECTED XX 09/14/19 13:15 09/14/19 13:16 DC Insulin Detemir (Levemir Insulin) 10 units BID SC 09/14/19 21:00 09/16/19 21:30 Insulin Human Lispro (HumaLOG INSULIN) SEE PROTOCOL TABLE AC SC 09/14/19 17:30 09/16/19 16:49 Insulin Human Lispro (HumaLOG INSULIN) SEE PROTOCOL TABLE QHS SC 09/14/19 21:00 Iron (Venofer) 100 mg HD IV 09/15/19 09:00 09/24/19 09:01 Lactobacillus Acidophilus (Bacid) 1 ea TID PO 09/14/19 16:00 09/17/19 08:54 Loperamide HCl (Imodium) 2 mg ASDIRECTED PRN PO DIARRHEA 09/14/19 13:45 09/14/19 17:41 Metoprolol Tartrate (Lopressor) 25 mg BID PO 09/14/19 21:00 09/17/19 08:55 Pantoprazole Sodium (Protonix) 40 mg BID PO 09/14/19 21:00 09/17/19 08:55 Psyllium Hydrophilic Mucilloid (Metamucil) 1 pkt DAILY PO 09/15/19 09:00 Sodium Bicarbonate (Sodium Bicarbonate) 1,300 mg TID PO 09/14/19 16:00 09/15/19 08:54 DC 09/15/19 08:18 Tetrahydrozoline HCl (Visine) 1 drop TID OU 09/14/19 16:00 09/17/19 09:01 VIANCA LEMUS MD Sep 17, 2019 12:25
--- NOTE | 2019-09-17 12:40 | IPN ---
DATE OF SERVICE: 09/17/2019 SUBJECTIVE: The patient was seen and examined the bedside today morning in the rehab unit. The patient is making progress. He was sitting on the sofa today. He had just finished a session of physical therapy when I saw him. Today is his regular day of dialysis. He denies any active complaints. OBJECTIVE: Vital signs: Temperature is 98.8 degrees Fahrenheit, blood pressure is 130/64, pulse is 88, respiratory rate 18, saturating 93% on room air. Intake and output - urine output recorded is only 50 mL. Weight in the bed scale was 67.9 mL yesterday. PHYSICAL EXAMINATION: General: The patient is awake, alert, oriented times three, sitting up in the sofa no apparent distress. Head and neck exam extraocular muscles intact. Pupils equally round and reactive to light. Mucous membranes are moist. Neck is supple. There is no jugular venous distention (JVD). He has a left IJ tunneled hemodialysis catheter. Cardiovascular: S1, S2 regular rate. No edema of the bilateral lower extremities. Respiratory: Chest is clear to auscultation bilaterally. Bilateral equal air entry. No rales or rhonchi. Abdomen: Soft, positive bowel sounds. Nontender. No organomegaly. Musculoskeletal: No clubbing or cyanosis. Power is 3 x 5 in right lower extremities. ACCESS DIRECTOR: The patient has word-finding difficulty and decreased power in the right lower extremity. Otherwise he is able to follow commands and communicate. LAB REVIEW: CBC done yesterday showed a hemoglobin of 8.4 and BMP done yesterday showed a potassium of 3.9. Microbiology - stool cord blood was done today which was negative. CURRENT INPATIENT MEDICATIONS: The patient's medications were all reviewed by myself, there is no change in the medications today as compared with the last time. ASSESSMENT AND PLAN: 1. End-stage renal disease on hemodialysis. The patient is being dialyzed according to Saturday, , Saturday schedule in the hospital. He will be dialyzed today. Ultrafiltration goal will be 1.5 liters. 2. Anemia and end-stage renal disease. The patient is getting IV Venofer with dialysis and Aranesp with dialysis once a week. Fecal occult blood test done today morning is negative. 3. Chronic kidney disease, mineral bone disease. Continue current dose of PhosLo three times a day. No need of calcitriol since PTH level is low. 4. Acute CVA with history of atrial fibrillation. Currently on metoprolol and Eliquis. The patient is getting the rehab. 5. Cancer of the colon with mets to the liver. The patient will get chemotherapy as outpatient.
[2019-09-17] MEDS: ASPIRIN 81 MG ENTERIC TAB PO SCH (12:46)
[2019-09-17 17:48] VITALS: BP 124/66
[2019-09-17 19:53] VITALS: BP 121/60
[2019-09-18 06:40] VITALS: BP 135/71
[2019-09-18 07:06] LABS: BASO # 0.1 10^3/uL (0.0-0.2); BASO % 1.2 % (0.0-1.0); EOS # 0.2 10^3/uL (0.0-0.5); HEMOGLOBIN 8.3 g/dl (13.5-17.5); LYMPH # 1.4 10^3/uL (1.5-5.0); LYMPH % 11.6 % (24.0-44.0); MEAN CORPUSCULAR HEMOGLOBIN 29.9 pg (27.0-33.0); MEAN CORPUSCULAR HGB CONC 29.6 g/dl (32.0-36.5); MEAN CORPUSCULAR VOLUME 100.7 fl (80.0-96.0); MONO # 1.4 10^3/uL (0.0-0.8); MONO % 11.4 % (0.0-5.0); NEUTROPHILS # 8.6 10^3/uL (1.5-8.5); PLATELET COUNT, AUTOMATED 244 10^3/uL (150-450); RED BLOOD COUNT 2.78 10^6/uL (4.30-6.10); WHITE BLOOD COUNT 11.9 10^3/uL (4.0-10.0)
[2019-09-18 07:33] LABS: CREATININE FOR GFR 2.92 MG/DL (0.70-1.30); POTASSIUM SERUM 3.9 MEQ/L (3.5-5.1)
[2019-09-18] MEDS: HumaLOG INSULIN (NovoLOG) PER UNIT SC SCH ×4 (07:55→21:00)
[2019-09-18] MEDS: METOPROLOL TART 25 MG TABLET PO SCH ×2 (09:00→21:01)
[2019-09-18] MEDS: LEVEMIR (INSULIN DETEMIR) 1 UNITS/0.01ML SC SCH ×3 (09:00→21:00)
[2019-09-18] MEDS: METAMUCIL (PSYLLIUM) PACKET PO SCH ×2 (09:12→21:00)
[2019-09-18] MEDS: LACTOBACILLUS ACIDOPHILUS CAP (BACID) PO SCH ×3 (09:12→21:02)
[2019-09-18] MEDS: CALCIUM ACETATE 667 MG GELCAP PO SCH ×3 (09:13→17:13)
[2019-09-18] MEDS: FOLIC ACID 1 MG TAB PO SCH (09:13)
[2019-09-18] MEDS: ASPIRIN 81 MG ENTERIC TAB PO SCH (09:13)
[2019-09-18] MEDS: PANTOPRAZOLE 40MG TAB (PROTONIX) PO SCH ×2 (09:14→20:59)
[2019-09-18] MEDS: APIXABAN 2.5 MG TAB (ELIQUIS) PO SCH ×2 (09:14→21:02)
[2019-09-18] MEDS: ATORVASTATIN 20 MG TAB PO SCH ×2 (09:14→21:01)
[2019-09-18] MEDS: CitaloPRAM (CeleXA) 20 MG TAB PO SCH (09:14)
[2019-09-18] MEDS: TETRAHYDROZOLINE OPHTH 0.05% 15 ML BTL OU SCH ×3 (09:15→21:04)
[2019-09-18 13:52] VITALS: BP 112/73
[2019-09-18] MEDS ORDERED: ACETAMINOPHEN 500 MG TAB PO ONE (14:00)
--- NOTE | 2019-09-18 15:12 | IPNPDOC ---
PM&R Progress Note DATE OF SERVICE: Sep 18, [address] Team Member Progress Note Subjective: Patient walking in therapy, better able to lift up his right leg. REVIEW OF SYSTEMS: The following is a completed review of systems and has been reviewed. Review of systems otherwise unremarkable. PAIN: Patient self reports no pain EYES: No recent vision changes EARS, NOSE, & THROAT: No throat pain, or dysphagia, or rhinorrhea CARDIOVASCULAR: Denies chest pain or palpitations PULMONARY: Denies shortness of breath GASTROINTESTINAL: +diarrhea GENITOURINARY: denies dysuria MUSCULOSKELETAL:RLE>RUE weakness NEUROLOGICAL:+stroke HEMATOLOGICAL:+anemia SKIN: AVF and permacath, left forearm skin tear PSYCHIATRIC: Unremarkable All other review of systems found to be negative. PHYSICAL EXAMINATION: VITAL SIGNS: Please see below. GENERAL: Pleasant and cooperative. No acute distress. HEENT: PERRL. Extraocular movements intact. Clear conjunctiva CARDIOVASCULAR: Regular rate and rhythm. No murmurs, rubs, or gallops LUNGS: Clear to auscultation bilaterally. No wheezes. No rhonchi ABDOMEN: Soft, nontender, nondistended. Positive bowel sounds. Normal active bowel sounds NEUROLOGICAL: Alert and oriented times three. Cranial nerves II through XII grossly intact. Sensation grossly intact in all 3 limbs, except decreased to light touch RLE +mild expressive aphasia with word finding difficulty able to follow two-step commands +clonus right LE, brisk patellar reflex on right EXTREMITIES: 5\5 strength Left upper extremity, 4+/5 right UE 2/5 right hip flexors, knee extensors, 1/5 ankle DF, EHL, 2/5 PF 5/5 strength in left lower extremity. SKIN: Left IJ permacath, left AVF, no sacral ulcers, left forearm skin tear ASSESSMENT:69-year-old M with past medical history of ESRD on HD who presents status post left GAMA and M2 stroke PLAN: 1.Rehab: PT strenghthen/stretch/maintain ROM bilat LE- multipodus boot in bed, ambulating with RW OT- strengthen/stretch/maintain ROM bilat UE- energy conservation DIRECTOR GEOTHERMAL OPERATIONS- assess for cog defects and treat 2. Neuro: s/p left GAMA and M2 infarct in setting of Afib- c/u Eliquis 2.5mg BID, metoprolol, will start ASa and statin for secondary stroke prevention- discussed with medicine -f/u outpatient neurology 3. Cardiac: grade 2 diastolic CHF with HTN and Afib- c/u metoprolol and Eliquis 2.5 BID, ASA and Lipitor, discussed with medicine, lipid profile ordered 4. Resp: encourage incentive spirometry 5. Renal: ESRD on HD //Saturday with recent episodes of hypokalemia- renal consulted, recs appreciated 6. 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 GI: persistent diarrhea possible due to bowl ischemia vs reaction to recent chemotherapy -C diff and diarrhea panel negative -will check FOBT, c/u immodium prn, Bacid, and metamucil -hx of adenocarcinoma s/p resection and chemo- will need to follow-up with Oncologist 8. Heme: anemia of chronic disease- FOBT negative 8. Endo: pmh DM c/u insulin therapy 9. : monitor PVRs 10. Psych: Celexa for depression 11. Pain: tylneol prn 12. Dispo: 09-29-19 to home, progressing towards goals Allergies Coded Allergies: enalapril (Verified Allergy, Unknown, 09/14/19) Vital Signs Vital Signs Date Time Temp Pulse Resp B/P (MAP) Pulse Ox O2 Delivery O2 Flow Rate FiO2 09/18/19 13:52 97.6 71 16 112/73 (86) 100 Room Air Laboratory Data CBC/BMP Laboratory Tests 09/18/19 06:28 Labs 24H Laboratory Tests 2 09/17/19 17:25: Bedside Glucose (Misc Panel) 93 09/17/19 19:47: Bedside Glucose (Misc Panel) 125H 09/18/19 06:28: Immature Granulocyte % (Auto) 1.8, Neutrophils (%) (Auto) 72.0H, Lymphocytes (%) (Auto) 11.6L, Monocytes (%) (Auto) 11.4H, Eosinophils (%) (Auto) 2.0, Basophils (%) (Auto) 1.2H, Neutrophils # (Auto) 8.6H, Lymphocytes # (Auto) 1.4L, Monocytes # (Auto) 1.4H, Eosinophils # (Auto) 0.2, Basophils # (Auto) 0.1, Nucleated Red Blood Cells % (auto) 0.0, Anion Gap 3L, Glomerular Filtration Rate 23.0L, Calcium Level 9.0 09/18/19 06:36: Bedside Glucose (Misc Panel) 106 09/18/19 11:24: Bedside Glucose (Misc Panel) 140H Microbiology Microbiology 09/17/19 Stool Occult Blood (MALU) - Final, Complete 09/14/19 Blood Culture - Preliminary, Resulted No Growth after 72 hours. All specime... 09/14/19 Blood Culture - Preliminary, Resulted No Growth after 72 hours. All specime... Current Medications Current Medications Current Medications Medications (Trade) Dose Ordered Sig/Leilani Route PRN Reason Start Time Stop Time Status Last Admin Dose Admin Acetaminophen (Tylenol Tab) 650 mg Q6HP PRN PO PAIN / FEVER 09/18/19 20:00 Apixaban (Eliquis) 2.5 mg BID PO 09/14/19 21:00 09/18/19 09:14 Aspirin (Ecotrin) 81 mg DAILY PO 09/17/19 09:00 09/18/19 09:13 Atorvastatin Calcium (Lipitor) 20 mg QHS PO 09/17/19 21:00 09/17/19 20:24 Atorvastatin Calcium (Lipitor) 40 mg DAILY PO 09/15/19 09:00 09/18/19 09:14 Calcium Acetate (Phoslo) 667 mg TID PO 09/14/19 16:00 09/14/19 20:30 DC 09/14/19 17:38 Calcium Acetate (Phoslo) 667 mg WM PO 09/15/19 08:00 09/18/19 11:56 Citalopram Hydrobromide (CeleXA) 20 mg DAILY PO 09/15/19 09:00 09/18/19 09:14 Darbepoetin Tyrone (Aranesp (Dialysis Use)) 200 mcg HD IV 09/15/19 09:00 Dextrose (Dextrose 50%) 25 ml ASDIRECTED PRN IV SEE LABEL COMMENTS 09/14/19 13:45 Ferrous Sulfate (Ferrous Sulfate) 325 mg DAILY PO 09/15/19 09:00 09/15/19 08:54 DC 09/15/19 08:19 Folic Acid (Folic Acid) 1 mg DAILY PO 09/15/19 09:00 09/18/19 09:13 Glucagon (Glucagon) 1 mg ASDIRECTED PRN SC SEE LABEL COMMENTS 09/14/19 13:45 Glucose (Glucose) 16 GM ASDIRECTED PRN PO SEE LABEL COMMENTS 09/14/19 13:45 Home Med (Med Rec Complete!) ASDIRECTED XX 09/14/19 13:15 09/14/19 13:16 DC Insulin Detemir (Levemir Insulin) 10 units BID SC 09/14/19 21:00 09/17/19 20:25 Insulin Human Lispro (HumaLOG INSULIN) SEE PROTOCOL TABLE AC SC 09/14/19 17:30 09/18/19 11:56 Insulin Human Lispro (HumaLOG INSULIN) SEE PROTOCOL TABLE QHS SC 09/14/19 21:00 Iron (Venofer) 100 mg HD IV 09/15/19 09:00 09/24/19 09:01 Lactobacillus Acidophilus (Bacid) 1 ea TID PO 09/14/19 16:00 09/18/19 09:12 Loperamide HCl (Imodium) 2 mg ASDIRECTED PRN PO DIARRHEA 09/14/19 13:45 09/14/19 17:41 Metoprolol Tartrate (Lopressor) 25 mg BID PO 09/14/19 21:00 09/17/19 20:24 Pantoprazole Sodium (Protonix) 40 mg BID PO 09/14/19 21:00 09/18/19 09:14 Psyllium Hydrophilic Mucilloid (Metamucil) 1 pkt DAILY PO 09/15/19 09:00 09/18/19 09:12 Sodium Bicarbonate (Sodium Bicarbonate) 1,300 mg TID PO 09/14/19 16:00 09/15/19 08:54 DC 09/15/19 08:18 Tetrahydrozoline HCl (Visine) 1 drop TID OU 09/14/19 16:00 09/18/19 09:15 VIANCA LEMUS MD Sep 18, 2019 15:12
[2019-09-18] MEDS: LOPERAMIDE 2 MG CAPLET PO SCH ×2 (16:24→21:02)
[2019-09-18 20:20] VITALS: BP 134/80
[2019-09-18] MEDS: ACETAMINOPHEN TAB 650MG DOSE (2X325MG) PO PRN (21:48)
[2019-09-19 06:00] VITALS: BP 164/78
[2019-09-19] MEDS: HumaLOG INSULIN (NovoLOG) PER UNIT SC SCH ×4 (07:08→21:00)
[2019-09-19 09:00] VITALS: BP 106/69
[2019-09-19] MEDS: METOPROLOL TART 25 MG TABLET PO SCH ×2 (09:00→21:09)
[2019-09-19] MEDS: METAMUCIL (PSYLLIUM) PACKET PO SCH ×2 (09:00→21:00)
[2019-09-19] MEDS: LEVEMIR (INSULIN DETEMIR) 1 UNITS/0.01ML SC SCH ×2 (09:00→21:08)
[2019-09-19] MEDS ORDERED: HEPARIN 1,000 UNITS/ML 10ML VIAL (FOR RADIOLOGY& DIALYSIS ONLY) XX ONE (09:00)
[2019-09-19] MEDS: CALCIUM ACETATE 667 MG GELCAP PO SCH ×3 (09:33→17:28)
[2019-09-19] MEDS: LACTOBACILLUS ACIDOPHILUS CAP (BACID) PO SCH ×3 (09:33→21:08)
[2019-09-19] MEDS: ATORVASTATIN 20 MG TAB PO SCH ×2 (09:33→21:08)
[2019-09-19] MEDS: CitaloPRAM (CeleXA) 20 MG TAB PO SCH (09:33)
[2019-09-19] MEDS: APIXABAN 2.5 MG TAB (ELIQUIS) PO SCH ×2 (09:34→21:08)
[2019-09-19] MEDS: LOPERAMIDE 2 MG CAPLET PO SCH ×3 (09:34→21:00)
[2019-09-19] MEDS: FOLIC ACID 1 MG TAB PO SCH (09:34)
[2019-09-19] MEDS: ASPIRIN 81 MG ENTERIC TAB PO SCH (09:34)
[2019-09-19] MEDS: PANTOPRAZOLE 40MG TAB (PROTONIX) PO SCH ×2 (09:34→21:08)
[2019-09-19] MEDS: ACETAMINOPHEN TAB 650MG DOSE (2X325MG) PO PRN ×2 (09:35→21:13)
[2019-09-19] MEDS: TETRAHYDROZOLINE OPHTH 0.05% 15 ML BTL OU SCH ×3 (09:35→21:09)
[2019-09-19] MEDS ORDERED: HEPARIN 1,000 UNITS/ML 10ML VIAL (FOR RADIOLOGY& DIALYSIS ONLY) IV ONE (10:00)
[2019-09-19] MEDS ORDERED: PREPARATION H OINTMENT (HEMORRHOID) TOP PRN (10:45)
--- NOTE | 2019-09-19 12:04 | IPN ---
DATE: 09/19/2019 SUBJECTIVE: Patient was seen this morning in a chair at bedside working the speech therapy. He feels like he continues to progress well and feels like he is regaining more movement in this right lower extremity and right upper extremity. He is scheduled for his regular dialysis later this afternoon. He does complain of some rectal pain at this time. OBJECTIVE: Vitals: Temperature: 98.3, pulse 75, respiratory rate 17, blood pressure 164/78, saturating 95% on room air. He put out 100 mL of urine in the last 24 hours. PHYSICAL EXAMINATION: GENERAL: Patient is awake, alert, and oriented times three, in no acute distress, sitting comfortably in his chair. HEENT: Head is normocephalic, atraumatic. Extraocular muscles intact. Pupils equal, round, and reactive to light. Mucous membranes are moist. NECK: Supple without jugular venous distention (JVD) with left IJ tunnel hemodialysis catheter in place. CARDIOVASCULAR: Regular rate and rhythm, normal S1 and S2, no murmurs, gallops, or rubs. RESPIRATORY: Clear to auscultation bilaterally. No wheezes, crackles, or rhonchi. ABDOMEN: Abdomen, soft, nontender, nondistended. Positive bowel sounds. MUSCULOSKELETAL: No clubbing, cyanosis, or edema. Strength is 4/5 in right lower extremity. NEUROLOGIC: Patient continues to have some difficulty with word finding and does exhibit decreased strength in his right lower extremity. He is otherwise alert and oriented and able to move this other extremities and follow commands appropriately. LAB REVIEW: No lab work has been done for today. ASSESSMENT/PLAN: 1. Patient's regular dialysis is scheduled for Saturday, , Saturday, he will be dialyzed today with ultrafiltration goal of 1.5 liters. 2. Anemia of end-stage renal disease. Patient gets IV Venofer dialysis and gets Aranesp once weekly with dialysis. 3. Chronic kidney disease, mineral bone disease. Patient is continued on PhosLo three times daily. 4. Acute CVA with history of atrial fibrillation. Patient is continued on metoprolol and Eliquis and is getting rehabilitation. 5. Metastatic colon cancer with mets to the liver. Patient will get chemotherapy as outpatient.
[2019-09-19 16:29] VITALS: BP 142/67
[2019-09-19 20:00] VITALS: BP 142/77
[2019-09-20 06:00] VITALS: BP 148/73
[2019-09-20] MEDS: HumaLOG INSULIN (NovoLOG) PER UNIT SC SCH ×4 (07:02→20:11)
[2019-09-20] MEDS: CALCIUM ACETATE 667 MG GELCAP PO SCH ×3 (08:01→17:13)
[2019-09-20] MEDS: PANTOPRAZOLE 40MG TAB (PROTONIX) PO SCH ×2 (08:01→20:10)
[2019-09-20] MEDS: LEVEMIR (INSULIN DETEMIR) 1 UNITS/0.01ML SC SCH ×2 (08:01→20:12)
[2019-09-20] MEDS: CitaloPRAM (CeleXA) 20 MG TAB PO SCH (08:02)
[2019-09-20] MEDS: FOLIC ACID 1 MG TAB PO SCH (08:02)
[2019-09-20] MEDS: APIXABAN 2.5 MG TAB (ELIQUIS) PO SCH ×2 (08:02→20:10)
[2019-09-20] MEDS: LOPERAMIDE 2 MG CAPLET PO SCH ×3 (08:02→20:10)
[2019-09-20] MEDS: LACTOBACILLUS ACIDOPHILUS CAP (BACID) PO SCH ×3 (08:02→20:11)
[2019-09-20] MEDS: ASPIRIN 81 MG ENTERIC TAB PO SCH (08:02)
[2019-09-20] MEDS: ATORVASTATIN 20 MG TAB PO SCH ×2 (08:03→20:10)
[2019-09-20] MEDS: TETRAHYDROZOLINE OPHTH 0.05% 15 ML BTL OU SCH ×3 (08:04→20:10)
[2019-09-20] MEDS: METAMUCIL (PSYLLIUM) PACKET PO SCH ×2 (08:04→20:11)
[2019-09-20] MEDS: METOPROLOL TART 25 MG TABLET PO SCH ×2 (08:05→20:11)
[2019-09-20] MEDS: ACETAMINOPHEN TAB 650MG DOSE (2X325MG) PO PRN ×2 (08:12→20:12)
[2019-09-20 14:00] VITALS: BP 140/68
[2019-09-20 20:15] VITALS: BP 128/79
[2019-09-21 05:40] VITALS: BP 147/67
[2019-09-21 06:42] LABS: BASO # 0.1 10^3/uL (0.0-0.2); BASO % 0.9 % (0.0-1.0); EOS # 0.5 10^3/uL (0.0-0.5); EOS % 4.5 % (0.0-3.0); HEMATOCRIT 31.3 % (42.0-52.0); HEMOGLOBIN 9.2 g/dl (13.5-17.5); LYMPH # 1.1 10^3/uL (1.5-5.0); LYMPH % 8.9 % (24.0-44.0); MEAN CORPUSCULAR HEMOGLOBIN 29.7 pg (27.0-33.0); MEAN CORPUSCULAR HGB CONC 29.4 g/dl (32.0-36.5); MONO # 1.1 10^3/uL (0.0-0.8); MONO % 8.8 % (0.0-5.0); NEUTROPHILS # 8.9 10^3/uL (1.5-8.5); NEUTROPHILS % 75.1 % (36.0-66.0); PLATELET COUNT, AUTOMATED 256 10^3/uL (150-450); WHITE BLOOD COUNT 11.9 10^3/uL (4.0-10.0)
[2019-09-21 07:06] LABS: CALCIUM LEVEL 9.1 MG/DL (8.8-10.2); CHOLESTEROL RISK RATIO 2.515 (<5); CREATININE FOR GFR 3.89 MG/DL (0.70-1.30); GLOMERULAR FILTRATION RATE 16.5 (>49); POTASSIUM SERUM 4.6 MEQ/L (3.5-5.1)
[2019-09-21] MEDS: HumaLOG INSULIN (NovoLOG) PER UNIT SC SCH ×4 (07:30→21:00)
[2019-09-21] MEDS: LEVEMIR (INSULIN DETEMIR) 1 UNITS/0.01ML SC SCH ×2 (07:39→21:00)
[2019-09-21] MEDS: ASPIRIN 81 MG ENTERIC TAB PO SCH (08:09)
[2019-09-21] MEDS: PANTOPRAZOLE 40MG TAB (PROTONIX) PO SCH ×2 (08:09→20:40)
[2019-09-21] MEDS: CitaloPRAM (CeleXA) 20 MG TAB PO SCH (08:09)
[2019-09-21] MEDS: LACTOBACILLUS ACIDOPHILUS CAP (BACID) PO SCH ×3 (08:09→20:39)
[2019-09-21] MEDS: ATORVASTATIN 20 MG TAB PO SCH (08:09)
[2019-09-21] MEDS: FOLIC ACID 1 MG TAB PO SCH (08:10)
[2019-09-21] MEDS: LOPERAMIDE 2 MG CAPLET PO SCH ×3 (08:10→20:40)
[2019-09-21] MEDS: METOPROLOL TART 25 MG TABLET PO SCH ×2 (08:10→20:41)
[2019-09-21] MEDS: APIXABAN 2.5 MG TAB (ELIQUIS) PO SCH ×2 (08:10→20:40)
[2019-09-21] MEDS: TETRAHYDROZOLINE OPHTH 0.05% 15 ML BTL OU SCH ×3 (08:10→20:49)
[2019-09-21] MEDS: CALCIUM ACETATE 667 MG GELCAP PO SCH ×3 (08:10→18:55)
[2019-09-21] MEDS: ACETAMINOPHEN TAB 650MG DOSE (2X325MG) PO PRN (08:12)
[2019-09-21] MEDS: METAMUCIL (PSYLLIUM) PACKET PO SCH ×2 (08:16→20:42)
[2019-09-21] MEDS: ANUSOL HC 25MG SUPP PR SCH ×2 (13:19→20:42)
[2019-09-21 13:42] VITALS: BP 117/65
[2019-09-21] MEDS ORDERED: traMADol 50 MG TAB PO ONE (15:30)
[2019-09-21] MEDS: ACETAMINOPHEN 500 MG TAB PO SCH ×2 (15:39→20:40)
--- NOTE | 2019-09-21 20:34 | REPVR ---
PROCEDURE INFORMATION: Exam: MR Head Without Contrast Exam date and time: 09/21/2019 4:04 PM Clinical history: 69 years old, male; Altered mental status/memory loss; Patient HX: Recent CVA found at [facility] no access to prior imaging or reports; Additional info: Recent stroke with mild slowing in language TECHNIQUE: Imaging protocol: MR of the head without contrast. COMPARISON: No relevant prior studies available. FINDINGS: Diffusion images demonstrate increased diffusion signal in the left posterior perisylvian region measuring 2.5 x 2.5 cm, and left frontal periventricular measuring 1 cm, with evidence of blood products suggesting some element of hemorrhagic transformation. Mild adjacent mass effect absence of decreased ADC map signal suggests that the infarct may be at least several days old Midline structures and cerebellar tonsillar position appear normal. Ventricles, cisterns and sulci are symmetrically prominent. No intracranial mass, midline shift or abnormal extra-axial fluid. Mild pattern of increased T2 and flair signal in supratentorial white matter. Optic chiasm and pituitary infundibulum appear normal. Normal vascular flow voids in major intracranial arteries and dural venous sinuses. Paranasal sinuses are clear. Mastoid air cells are normally aerated. Optic globes and orbits are unremarkable. IMPRESSION: Relatively acute posterior left perisylvian and left frontal centrum semiovale infarcts, probably with areas of petechial hemorrhage and only mild mass effect. Correlation with prior MRI or CT exams is recommended, to help pinpoint timing Electronically signed by: Rodger Salmeron On 09/21/2019 20:32:04 PM
[2019-09-22 06:00] VITALS: BP 130/60
[2019-09-22] MEDS: HumaLOG INSULIN (NovoLOG) PER UNIT SC SCH ×4 (08:44→21:00)
[2019-09-22] MEDS: LEVEMIR (INSULIN DETEMIR) 1 UNITS/0.01ML SC SCH ×2 (08:44→21:17)
[2019-09-22] MEDS: PANTOPRAZOLE 40MG TAB (PROTONIX) PO SCH ×2 (08:44→21:14)
[2019-09-22] MEDS: APIXABAN 2.5 MG TAB (ELIQUIS) PO SCH ×2 (08:45→21:15)
[2019-09-22] MEDS: METOPROLOL TART 25 MG TABLET PO SCH ×2 (08:45→21:13)
[2019-09-22] MEDS: LOPERAMIDE 2 MG CAPLET PO SCH ×3 (08:45→21:13)
[2019-09-22] MEDS: LACTOBACILLUS ACIDOPHILUS CAP (BACID) PO SCH ×3 (08:45→21:13)
[2019-09-22] MEDS: CitaloPRAM (CeleXA) 20 MG TAB PO SCH (08:46)
[2019-09-22] MEDS: ACETAMINOPHEN 500 MG TAB PO SCH ×3 (08:46→21:14)
[2019-09-22] MEDS: CALCIUM ACETATE 667 MG GELCAP PO SCH ×3 (08:46→19:09)
[2019-09-22] MEDS: ATORVASTATIN 20 MG TAB PO SCH (08:46)
[2019-09-22] MEDS: FOLIC ACID 1 MG TAB PO SCH (08:46)
[2019-09-22] MEDS: METAMUCIL (PSYLLIUM) PACKET PO SCH (08:46)
[2019-09-22] MEDS: TETRAHYDROZOLINE OPHTH 0.05% 15 ML BTL OU SCH ×3 (08:50→21:18)
[2019-09-22] MEDS: ANUSOL HC 25MG SUPP PR SCH ×2 (08:50→21:13)
--- NOTE | 2019-09-22 08:57 | REP ---
CT brain: 09/22/2019. Indication: Stroke. Comparison: MRI brain from yesterday. Findings: There is no significant acute intracranial hemorrhage, mass effect or hydrocephalous. There are areas of low attenuation which correspond to the signal abnormalities on the recent MRI study. The MRI shows suspected laminar necrosis which indicates a late subacute/chronic infarction. There is no significant sulcal effacement. Diffuse volume loss is present. Intracranial atherosclerotic disease is present. Impression: Likely late subacute to chronic multifocal left MCA infarctions as described. Diffuse volume loss and intracranial atherosclerotic disease. Electronically Signed by Ankush Buck DO 09/22/2019 08:49 A
--- NOTE | 2019-09-22 10:38 | IPNPDOC ---
PM&R Progress Note DATE OF SERVICE: Sep 21, 2019 It Systems Administrator Progress Note Subjective: Patient seen in therapy reporting his rectum hurts. He reports his diarrhea has subsided. REVIEW OF SYSTEMS: The following is a completed review of systems and has been reviewed. Review of systems otherwise unremarkable. PAIN: Patient self reports no pain EYES: No recent vision changes EARS, NOSE, & THROAT: No throat pain, or dysphagia, or rhinorrhea CARDIOVASCULAR: Denies chest pain or palpitations PULMONARY: Denies shortness of breath GASTROINTESTINAL: +diarrhea GENITOURINARY: denies dysuria MUSCULOSKELETAL:RLE>RUE weakness NEUROLOGICAL:+stroke HEMATOLOGICAL:+anemia SKIN: AVF and permacath, left forearm skin tear PSYCHIATRIC: Unremarkable All other review of systems found to be negative. PHYSICAL EXAMINATION: VITAL SIGNS: Please see below. GENERAL: Pleasant and cooperative. No acute distress. HEENT: PERRL. Extraocular movements intact. Clear conjunctiva CARDIOVASCULAR: Regular rate and rhythm. No murmurs, rubs, or gallops LUNGS: Clear to auscultation bilaterally. No wheezes. No rhonchi ABDOMEN: Soft, nontender, nondistended. Positive bowel sounds. Normal active bowel sounds NEUROLOGICAL: Alert and oriented times three. Cranial nerves II through XII grossly intact. Sensation grossly intact in all 3 limbs, except decreased to light touch RLE +mild expressive aphasia with word finding difficulty able to follow two-step commands, +clonus right LE, brisk patellar reflex on right EXTREMITIES: 5\5 strength Left upper extremity, 4+/5 right UE 2/5 right hip flexors, knee extensors, 1/5 ankle DF, EHL, 2/5 PF 5/5 strength in left lower extremity. SKIN: Left IJ permacath, left AVF, no sacral ulcers, left forearm skin tear ASSESSMENT:69-year-old M with past medical history of ESRD on HD who presents status post left GAMA and M2 stroke PLAN: 1.Rehab: PT strenghthen/stretch/maintain ROM bilat LE- multipodus boot in bed, ambulating with RW- per therapy his right leg buckled today OT- strengthen/stretch/maintain ROM bilat UE- energy conservation INDIRECT SALES REPRESENTATIVE- assess for cog defects and treat, INDIRECT SALES REPRESENTATIVE voiced concerns patient's verbal processing has regressed 2. Neuro: s/p left GAMA and M2 infarct in setting of Afib- c/u Eliquis 2.5mg BID, metoprolol, will start ASa and statin for secondary stroke prevention- discussed with medicine -f/u outpatient neurology -will order MRI to rule out new stroke or progression of recent stroke, patient without major clinical deficits on exam and is neurologically stable 3. Cardiac: grade 2 diastolic CHF with HTN and Afib- c/u metoprolol and Eliquis 2.5 BID, ASA and Lipitor, discussed with medicine, lipid profile ordered 4. Resp: encourage incentive spirometry 5. Renal: ESRD on HD //Saturday with recent episodes of hypokalemia- renal consulted, recs appreciated 6. 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 GI: persistent diarrhea possible due to bowl ischemia vs reaction to recent chemotherapy-improving -C diff and diarrhea panel negative - FOBT negative, c/u immodium prn, Bacid, and metamucil -hx of adenocarcinoma s/p resection and chemo- will need to follow-up with Oncologist -will start Anusol rectal suppository for rectal pain 8. Heme: anemia of chronic disease- FOBT negative 8. Endo: pmh DM c/u insulin therapy 9. : monitor PVRs 10. Psych: Celexa for depression 11. Pain: tylneol prn, tramadol 12. Dispo: 09-29-19 to home, progressing towards goals Allergies Coded Allergies: enalapril (Verified Allergy, Unknown, 09/14/19) Vital Signs Vital Signs Date Time Temp Pulse Resp B/P (MAP) Pulse Ox O2 Delivery O2 Flow Rate FiO2 09/22/19 08:45 87 130/60 09/22/19 06:00 98.0 19 93 Room Air Laboratory Data Labs 24H Laboratory Tests 2 09/21/19 11:25: Bedside Glucose (Misc Panel) 135H 09/21/19 18:52: Bedside Glucose (Misc Panel) 115 09/21/19 20:03: Bedside Glucose (Misc Panel) 93 09/22/19 05:23: Bedside Glucose (Misc Panel) 131H Microbiology Microbiology 09/17/19 Stool Occult Blood (MALU) - Final, Complete 09/14/19 Blood Culture - Final, Complete NO GROWTH AFTER 5 DAYS 09/14/19 Blood Culture - Final, Complete NO GROWTH AFTER 5 DAYS Current Medications Current Medications Current Medications Medications (Trade) Dose Ordered Sig/Leilani Route PRN Reason Start Time Stop Time Status Last Admin Dose Admin Acetaminophen (Tylenol Tab) 650 mg Q6HP PRN PO PAIN / FEVER 09/18/19 20:00 09/21/19 15:24 DC 09/21/19 08:12 Acetaminophen (Tylenol Tab) 1,000 mg TID PO 09/21/19 16:00 09/22/19 08:46 Apixaban (Eliquis) 2.5 mg BID PO 09/14/19 21:00 09/22/19 08:45 Aspirin (Ecotrin) 81 mg DAILY PO 09/17/19 09:00 09/21/19 20:48 DC 09/21/19 08:09 Atorvastatin Calcium (Lipitor) 20 mg QHS PO 09/17/19 21:00 09/21/19 15:24 DC 09/20/19 20:10 Atorvastatin Calcium (Lipitor) 40 mg DAILY PO 09/15/19 09:00 09/22/19 08:46 Calcium Acetate (Phoslo) 667 mg TID PO 09/14/19 16:00 09/14/19 20:30 DC 09/14/19 17:38 Calcium Acetate (Phoslo) 667 mg WM PO 09/15/19 08:00 09/22/19 08:46 Citalopram Hydrobromide (CeleXA) 20 mg DAILY PO 09/15/19 09:00 09/22/19 08:46 Darbepoetin Tyrone (Aranesp (Dialysis Use)) 200 mcg HD IV 09/15/19 09:00 Dexamethasone (Decadron) 2 mg BID PO 09/21/19 21:00 09/22/19 09:57 DC 09/22/19 08:45 Dextrose (Dextrose 50%) 25 ml ASDIRECTED PRN IV SEE LABEL COMMENTS 09/14/19 13:45 Ferrous Sulfate (Ferrous Sulfate) 325 mg DAILY PO 09/15/19 09:00 09/15/19 08:54 DC 09/15/19 08:19 Folic Acid (Folic Acid) 1 mg DAILY PO 09/15/19 09:00 09/22/19 08:46 Glucagon (Glucagon) 1 mg ASDIRECTED PRN SC SEE LABEL COMMENTS 09/14/19 13:45 Glucose (Glucose) 16 GM ASDIRECTED PRN PO SEE LABEL COMMENTS 09/14/19 13:45 Home Med (Med Rec Complete!) ASDIRECTED XX 09/14/19 13:15 09/14/19 13:16 DC Hydrocortisone Acetate (Anusol Hc Supp) 25 mg BID VT 09/21/19 09:00 09/22/19 08:50 Insulin Detemir (Levemir Insulin) 10 units BID SC 09/14/19 21:00 09/22/19 08:44 Insulin Human Lispro (HumaLOG INSULIN) SEE PROTOCOL TABLE AC SC 09/14/19 17:30 09/22/19 08:44 Insulin Human Lispro (HumaLOG INSULIN) SEE PROTOCOL TABLE QHS SC 09/14/19 21:00 Iron (Venofer) 100 mg HD IV 09/15/19 09:00 09/24/19 09:01 Lactobacillus Acidophilus (Bacid) 1 ea TID PO 09/14/19 16:00 09/22/19 08:45 Loperamide HCl (Imodium) 2 mg ASDIRECTED PRN PO DIARRHEA 09/14/19 13:45 09/18/19 15:33 DC 09/14/19 17:41 Loperamide HCl (Imodium) 2 mg TID PO 09/18/19 16:00 09/22/19 08:45 Metoprolol Tartrate (Lopressor) 25 mg BID PO 09/14/19 21:00 09/22/19 08:45 Miscellaneous (Unresolved Clarification Entry) SEE LABEL COMMENTS DAILY XX 09/21/19 09:00 09/21/19 11:41 DC Pantoprazole Sodium (Protonix) 40 mg BID PO 09/14/19 21:00 09/22/19 08:44 Phenyleph/Shark Oil/Min Oil/Petrol (Preparation H Ointment) DAILYPRN PRN TOP HEMORRHOIDS 09/19/19 10:45 09/21/19 12:17 Psyllium Hydrophilic Mucilloid (Metamucil) 1 pkt BID PO 09/18/19 21:00 Psyllium Hydrophilic Mucilloid (Metamucil) 1 pkt DAILY PO 09/15/19 09:00 09/18/19 15:33 DC 09/18/19 09:12 Sodium Bicarbonate (Sodium Bicarbonate) 1,300 mg TID PO 09/14/19 16:00 09/15/19 08:54 DC 09/15/19 08:18 Tetrahydrozoline HCl (Visine) 1 drop TID OU 09/14/19 16:00 09/22/19 08:50 VIANCA LEMUS MD Sep 22, 2019 10:38
--- NOTE | 2019-09-22 10:46 | IPNPDOC ---
PM&R Progress Note DATE OF SERVICE: Sep 22, 2019 Environmental Advisor Progress Note Subjective: Patient reporting his rectal pain is a little better today. He says he does not feel differently and believes he was off in therapy yesterday because he didn't want to put in the effort. REVIEW OF SYSTEMS: The following is a completed review of systems and has been reviewed. Review of systems otherwise unremarkable. PAIN: Patient self reports no pain EYES: No recent vision changes EARS, NOSE, & THROAT: No throat pain, or dysphagia, or rhinorrhea CARDIOVASCULAR: Denies chest pain or palpitations PULMONARY: Denies shortness of breath GASTROINTESTINAL: +diarrhea (resolved) GENITOURINARY: denies dysuria MUSCULOSKELETAL:RLE>RUE weakness NEUROLOGICAL:+stroke HEMATOLOGICAL:+anemia SKIN: AVF and permacath, left forearm skin tear PSYCHIATRIC: Unremarkable All other review of systems found to be negative. PHYSICAL EXAMINATION: VITAL SIGNS: Please see below. GENERAL: Pleasant and cooperative. No acute distress. HEENT: PERRL. Extraocular movements intact. Clear conjunctiva CARDIOVASCULAR: Regular rate and rhythm. No murmurs, rubs, or gallops LUNGS: Clear to auscultation bilaterally. No wheezes. No rhonchi ABDOMEN: Soft, nontender, nondistended. Positive bowel sounds. Normal active bowel sounds NEUROLOGICAL: Alert and oriented times three. Cranial nerves II through XII grossly intact. Sensation grossly intact in all 3 limbs, except decreased to light touch RLE +mild expressive aphasia with word finding difficulty able to follow two-step commands, +clonus right LE, brisk patellar reflex on right EXTREMITIES: 5\\5 strength Left upper extremity, 4+/5 right UE 2/5 right hip flexors, knee extensors, 1/5 ankle DF, EHL, 2/5 PF 5/5 strength in left lower extremity. SKIN: Left IJ permacath, left AVF, no sacral ulcers, left forearm skin tear ASSESSMENT:69-year-old M with past medical history of ESRD on HD who presents status post left GAMA and M2 stroke PLAN: 1.Rehab: PT strenghthen/stretch/maintain ROM bilat LE- multipodus boot in bed, ambulating with RW- per therapy his right leg buckled today OT- strengthen/stretch/maintain ROM bilat UE- energy conservation FARM HELPER- assess for cog defects and treat, FARM HELPER voiced concerns patient's verbal processing has regressed 2. Neuro: s/p left GAMA and M2 infarct in setting of Afib- c/u Eliquis 2.5mg BID, metoprolol, d/c'd ASA c/u statin for secondary stroke prevention- discussed with medicine -repeat MRI 09-21-19 showing "Relatively acute posterior left perisylvian and left frontal centrum semiovale infarcts, probably with areas of petechial hemorrhage", discussed findings with [facility] radiologist who reported frontal petechial hemorrhage was not present on MRI 08-25-19, but M2 petechial hemorrhage was, CT scan today showing no acute infarct, discussed case with Dr. Andrew who will consult on case and advise on ASA -patient clinically stable and able to participate in therapy 3. Cardiac: grade 2 diastolic CHF with HTN and Afib- c/u metoprolol and Eliquis 2.5 BID, ASA on hold and Lipitor, discussed with medicine 4. Resp: encourage incentive spirometry 5. Renal: ESRD on HD //Saturday with recent episodes of hypokalemia- renal consulted, recs appreciated 6. 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 GI: persistent diarrhea possible due to bowl ischemia vs reaction to recent chemotherapy-improving -C diff and diarrhea panel negative - FOBT negative, c/u immodium prn, Bacid, and metamucil -hx of adenocarcinoma s/p resection and chemo- will need to follow-up with Oncologist -c/u Anusol rectal suppository for rectal pain 8. Heme: anemia of chronic disease- FOBT negative 8. Endo: pmh DM c/u insulin therapy 9. : monitor PVRs 10. Psych: Celexa for depression 11. Pain: tylneol prn 12. Dispo: 09-29-19 to home, progressing towards goals Allergies Coded Allergies: enalapril (Verified Allergy, Unknown, 09/14/19) Vital Signs Vital Signs Date Time Temp Pulse Resp B/P (MAP) Pulse Ox O2 Delivery O2 Flow Rate FiO2 09/22/19 08:45 87 130/60 09/22/19 06:00 98.0 19 93 Room Air Laboratory Data Labs 24H Laboratory Tests 2 09/21/19 11:25: Bedside Glucose (Misc Panel) 135H 09/21/19 18:52: Bedside Glucose (Misc Panel) 115 09/21/19 20:03: Bedside Glucose (Misc Panel) 93 09/22/19 05:23: Bedside Glucose (Misc Panel) 131H Microbiology Microbiology 09/17/19 Stool Occult Blood (MALU) - Final, Complete 09/14/19 Blood Culture - Final, Complete NO GROWTH AFTER 5 DAYS 09/14/19 Blood Culture - Final, Complete NO GROWTH AFTER 5 DAYS Current Medications Current Medications Current Medications Medications (Trade) Dose Ordered Sig/Leilani Route PRN Reason Start Time Stop Time Status Last Admin Dose Admin Acetaminophen (Tylenol Tab) 650 mg Q6HP PRN PO PAIN / FEVER 09/18/19 20:00 09/21/19 15:24 DC 09/21/19 08:12 Acetaminophen (Tylenol Tab) 1,000 mg TID PO 09/21/19 16:00 09/22/19 08:46 Apixaban (Eliquis) 2.5 mg BID PO 09/14/19 21:00 09/22/19 08:45 Aspirin (Ecotrin) 81 mg DAILY PO 09/17/19 09:00 09/21/19 20:48 DC 09/21/19 08:09 Atorvastatin Calcium (Lipitor) 20 mg QHS PO 09/17/19 21:00 09/21/19 15:24 DC 09/20/19 20:10 Atorvastatin Calcium (Lipitor) 40 mg DAILY PO 09/15/19 09:00 09/22/19 08:46 Calcium Acetate (Phoslo) 667 mg TID PO 09/14/19 16:00 09/14/19 20:30 DC 09/14/19 17:38 Calcium Acetate (Phoslo) 667 mg WM PO 09/15/19 08:00 09/22/19 08:46 Citalopram Hydrobromide (CeleXA) 20 mg DAILY PO 09/15/19 09:00 09/22/19 08:46 Darbepoetin [place] (Aranesp (Dialysis Use)) 200 mcg HD IV 09/15/19 09:00 Dexamethasone (Decadron) 2 mg BID PO 09/21/19 21:00 09/22/19 09:57 DC 09/22/19 08:45 Dextrose (Dextrose 50%) 25 ml ASDIRECTED PRN IV SEE LABEL COMMENTS 09/14/19 13:45 Ferrous Sulfate (Ferrous Sulfate) 325 mg DAILY PO 09/15/19 09:00 09/15/19 08:54 DC 09/15/19 08:19 Folic Acid (Folic Acid) 1 mg DAILY PO 09/15/19 09:00 09/22/19 08:46 Glucagon (Glucagon) 1 mg ASDIRECTED PRN SC SEE LABEL COMMENTS 09/14/19 13:45 Glucose (Glucose) 16 GM ASDIRECTED PRN PO SEE LABEL COMMENTS 09/14/19 13:45 Home Med (Med Rec Complete!) ASDIRECTED XX 09/14/19 13:15 09/14/19 13:16 DC Hydrocortisone Acetate (Anusol Hc Supp) 25 mg BID CA 09/21/19 09:00 09/22/19 08:50 Insulin Detemir (Levemir Insulin) 10 units BID SC 09/14/19 21:00 09/22/19 08:44 Insulin Human Lispro (HumaLOG INSULIN) SEE PROTOCOL TABLE AC SC 09/14/19 17:30 09/22/19 08:44 Insulin Human Lispro (HumaLOG INSULIN) SEE PROTOCOL TABLE QHS SC 09/14/19 21:00 Iron (Venofer) 100 mg HD IV 09/15/19 09:00 09/24/19 09:01 Lactobacillus Acidophilus (Bacid) 1 ea TID PO 09/14/19 16:00 09/22/19 08:45 Loperamide HCl (Imodium) 2 mg ASDIRECTED PRN PO DIARRHEA 09/14/19 13:45 09/18/19 15:33 DC 09/14/19 17:41 Loperamide HCl (Imodium) 2 mg TID PO 09/18/19 16:00 09/22/19 08:45 Metoprolol Tartrate (Lopressor) 25 mg BID PO 09/14/19 21:00 09/22/19 08:45 Miscellaneous (Unresolved Clarification Entry) SEE LABEL COMMENTS DAILY XX 09/21/19 09:00 09/21/19 11:41 DC Pantoprazole Sodium (Protonix) 40 mg BID PO 09/14/19 21:00 09/22/19 08:44 Phenyleph/Shark Oil/Min Oil/Petrol (Preparation H Ointment) DAILYPRN PRN TOP HEMORRHOIDS 09/19/19 10:45 09/21/19 12:17 Psyllium Hydrophilic Mucilloid (Metamucil) 1 pkt BID PO 09/18/19 21:00 Psyllium Hydrophilic Mucilloid (Metamucil) 1 pkt DAILY PO 09/15/19 09:00 09/18/19 15:33 DC 09/18/19 09:12 Sodium Bicarbonate (Sodium Bicarbonate) 1,300 mg TID PO 09/14/19 16:00 09/15/19 08:54 DC 09/15/19 08:18 Tetrahydrozoline HCl (Visine) 1 drop TID OU 09/14/19 16:00 09/22/19 08:50 VIANCA LEMUS MD Sep 22, 2019 10:46
[2019-09-22] MEDS ORDERED: HEPARIN 1,000 UNITS/ML 10ML VIAL (FOR RADIOLOGY& DIALYSIS ONLY) IV ONE (12:45)
[2019-09-22] MEDS ORDERED: HEPARIN 1,000 UNITS/ML 10ML VIAL (FOR RADIOLOGY& DIALYSIS ONLY) XX ONE (12:45)
[2019-09-22 15:10] VITALS: BP 166/79
[2019-09-22 20:00] VITALS: BP 118/75
--- NOTE | 2019-09-22 23:17 | IPN ---
DATE: 09/22/2019 JIA Cote is seen and examined at the bedside in the rehabilitation unit and then later receiving his hemodialysis treatment. He reports dialysis has been going well and also has physical therapy. He offers no complaints. Vital signs: Temperature 97.8, pulse 73, respiratory rate 16, blood pressure 166/79, saturating 98% on room air. Intake yesterday was a liter. Urine output yesterday was 150. Dialysis today removed 1500, weight in the bed scale is not recorded. General: The patient is seen sitting out of bed to the chair, eating. He is awake, alert and conversational, in no apparent distress. Extraocular muscles are intact. Sclerae are anicteric. Neck is supple. Jugular veins were not elevated. There is a Perma-Cath present in the left chest wall. Cardiac: Regular rate and rhythm. No edema in the peripheries. No murmur. Lungs are clear to auscultation bilaterally. No crackle or rales. Abdomen is soft and nontender. There are bowel sounds. Neurologic: The patient is awake, alert and oriented to person, place, situation. Cooperative with physical exam and conversational. He has a mild expressive aphasia with word finding difficulty. Extremities are negative for edema. There is an immature fistula present on the left arm. LABS: White count 11.9, hemoglobin 9.2, sodium 138, potassium 4.6, calcium 9.1. CT head: Late subacute to chronic multifocal left MCA infarctions. INPATIENT MEDICATIONS: Reviewed by myself. I note that his aspirin has been discontinued as has his Decadron. He is ordered for Venofer with dialysis. His remainder of medications are unchanged from prior. PROBLEMS: 1. End-stage renal disease, on hemodialysis on a Saturday, , Saturday schedule via left chest wall Perma-Cath. The patient is dialyzed today. 1.5 liters of fluid were removed. He has been tolerating his treatments without issue. His electrolytes and volume status are acceptable. 2. Anemia of end-stage renal disease on iron deficiency. He is receiving Venofer with dialysis and Aranesp as well. Hemoglobin is slowly improving up to 9.2 today. His stool occult blood has been negative. 3. Renal osteodystrophy. He continues on three times a day PhosLo. His phosphorus levels and calcium levels are acceptable and his parathyroid hormone is suppressed. 4. Hypertension and atrial fibrillation. The patient is anticoagulated with low dose Eliquis and rate controlled with metoprolol. Blood pressure has been acceptably controlled.
[2019-09-23 06:43] VITALS: BP 134/65
--- NOTE | 2019-09-23 07:02 | CR ---
DATE OF CONSULTATION: 09/22/2019 REFERRING PHYSICIAN: Dr. Samantha Roberts REASON FOR CONSULTATION: Stroke. HISTORY OF PRESENT ILLNESS: Rocael Dunlap is a 69-year-old man with history of peripheral arterial disease, diabetes, hypertension, end-stage renal disease on hemodialysis, colon cancer status post bowel resection and chemotherapy with liver metastasis, atrial fibrillation, and T10 and L1 compression fractures who presented to [facility] with expressive aphasia and right-sided hemiplegia. He received tPA and was admitted to the stroke unit. He was found to have acute stroke in left M2 and anterior cerebral artery territory with micro hemorrhages in left M2 territory. CT angiography of head and neck did not show large vessel occlusion. He was found to have 50-69% right carotid artery stenosis. Echocardiogram showed grade 2 diastolic dysfunction and mild aortic stenosis. He was started on heparin followed by Eliquis. He was cleared by gastroenterology and neurology. He was transferred to [facility] for rehabilitation. He was started on aspirin 81 mg by mouth daily in addition to his Eliquis. He had a repeat MRI scan of brain on the weekend which showed petechial hemorrhage within the stroke in left anterior cerebral artery region. He had a CT scan of head this week which showed stable left M2 region ischemic stroke without hemorrhage. I was consulted to explain the findings of his MRI scan of brain and CT scan of head and choice of anticoagulation and antiplatelet therapy. The patient denies any headaches, neck or back pain. He has persistent symptoms from his ischemic stroke. He denies any new symptoms over the last 1 week. He has right arm and leg numbness and weakness. He still has expressive aphasia, but it is improving. He is able to have a conversation and answer questions. DIAGNOSTIC STUDIES: His MRI scan of brain was reviewed and showed petechial hemorrhage within ischemic strokes in left anterior cerebral artery and left M2 branch of middle cerebral artery. CT scan of head showed only ischemic stroke without hemorrhage. CURRENT MEDICATIONS: Eliquis 2.5 mg by mouth twice a day, aspirin 81 mg by mouth daily which has been discontinued since his findings on MRI scan, Lipitor 40 mg by mouth daily, Celexa 20 mg by mouth daily, Retacrit 8000 units three times a day with dialysis, ferrous sulfate 325 mg by mouth daily, folic acid 1 mg by mouth daily, insulin Detemir 16 units twice a day, loperamide 2 mg four times a day as needed, Lopressor 25 mg by mouth twice a day, Protonix 40 mg by mouth twice a day, sodium bicarbonate 1300 mg by mouth three times a day. ALLERGIES: - ENALAPRIL. SOCIAL HISTORY: Denies smoking, alcohol or illicit drugs. FAMILY HISTORY: Noncontributory. REVIEW OF SYSTEMS: All systems were reviewed and found to be noncontributory except as mentioned in the history of present illness. PHYSICAL EXAMINATION: Temperature 97.8, pulse 73, respiratory rate 16, blood pressure 166/79, and 98% saturation on room air. Heart: Regular rate and rhythm. Lungs: Clear to auscultation. Abdomen: Soft, nontender, nondistended. No pedal edema. No musculoskeletal abnormalities. No rash. No signs of meningeal irritation. No tremor. No dysmetria. The patient is awake, alert, and oriented to place, person and time. Normal comprehension. He does have mild difficulty with expressive speech. No facial weakness. Tongue and uvula are midline. 5/5 strength in left arm and leg. Right arm and leg strength is 4+/5 throughout. Right plantar is upgoing. Left plantar is downgoing. Normal light touch, pinprick vibration sensation in both sides of his body. No dysmetria. Gait was not tested. The patient was getting hemodialysis at the time that I saw him. ASSESSMENT: 1. Embolic ischemic strokes in left posterior division of middle cerebral artery and left anterior cerebral artery with petechial hemorrhages which are likely several days to weeks old and showed up on MRI scan of brain and not on CT scan of head. 2. Atrial fibrillation. 3. Peripheral arterial disease, end-stage renal disease and diabetes. PLAN: 1. Discontinue aspirin. 2. Eliquis 2.5 mg by mouth twice a day. 3. Lipitor 40 mg by mouth daily. 4. Aspirin 81 mg by mouth daily can be reviewed after a month if indicated for his peripheral arterial and vascular disease. 5. Keep long-term systolic blood pressure below 130 and diastolic blood pressure below 80.
[2019-09-23] MEDS: HumaLOG INSULIN (NovoLOG) PER UNIT SC SCH ×4 (07:30→21:00)
[2019-09-23] MEDS: LEVEMIR (INSULIN DETEMIR) 1 UNITS/0.01ML SC SCH ×2 (07:40→21:21)
[2019-09-23] MEDS: ATORVASTATIN 20 MG TAB PO SCH (08:53)
[2019-09-23] MEDS: FOLIC ACID 1 MG TAB PO SCH (08:53)
[2019-09-23] MEDS: PANTOPRAZOLE 40MG TAB (PROTONIX) PO SCH ×2 (08:54→21:20)
[2019-09-23] MEDS: CitaloPRAM (CeleXA) 20 MG TAB PO SCH (08:54)
[2019-09-23] MEDS: LACTOBACILLUS ACIDOPHILUS CAP (BACID) PO SCH ×3 (08:54→21:20)
[2019-09-23] MEDS: APIXABAN 2.5 MG TAB (ELIQUIS) PO SCH ×2 (08:54→21:21)
[2019-09-23] MEDS: METOPROLOL TART 25 MG TABLET PO SCH ×2 (08:54→21:21)
[2019-09-23] MEDS: ACETAMINOPHEN 500 MG TAB PO SCH ×3 (08:54→21:20)
[2019-09-23] MEDS: ANUSOL HC 25MG SUPP PR SCH ×2 (08:55→21:22)
[2019-09-23] MEDS: TETRAHYDROZOLINE OPHTH 0.05% 15 ML BTL OU SCH ×3 (08:55→21:22)
[2019-09-23] MEDS: LOPERAMIDE 2 MG CAPLET PO SCH ×2 (08:55→15:29)
[2019-09-23] MEDS: CALCIUM ACETATE 667 MG GELCAP PO SCH ×3 (08:55→18:42)
--- NOTE | 2019-09-23 11:49 | IPNPDOC ---
PM&R Progress Note DATE OF SERVICE: Sep 23, 2019 Tool Coordinator Progress Note Subjective: Patient seen in the gym requesting a regular diet. He says he wants burns and ice cream. He says his rectal pain is still there, but better overall. REVIEW OF SYSTEMS: The following is a completed review of systems and has been reviewed. Review of systems otherwise unremarkable. PAIN: Patient self reports no pain EYES: No recent vision changes EARS, NOSE, & THROAT: No throat pain, or dysphagia, or rhinorrhea CARDIOVASCULAR: Denies chest pain or palpitations PULMONARY: Denies shortness of breath GASTROINTESTINAL: +diarrhea (resolved) GENITOURINARY: denies dysuria MUSCULOSKELETAL:RLE>RUE weakness NEUROLOGICAL:+stroke HEMATOLOGICAL:+anemia SKIN: AVF and permacath, left forearm skin tear PSYCHIATRIC: Unremarkable All other review of systems found to be negative. PHYSICAL EXAMINATION: VITAL SIGNS: Please see below. GENERAL: Pleasant and cooperative. No acute distress. HEENT: PERRL. Extraocular movements intact. Clear conjunctiva CARDIOVASCULAR: Regular rate and rhythm. No murmurs, rubs, or gallops LUNGS: Clear to auscultation bilaterally. No wheezes. No rhonchi ABDOMEN: Soft, nontender, nondistended. Positive bowel sounds. Normal active bowel sounds NEUROLOGICAL: Alert and oriented times three. Cranial nerves II through XII grossly intact. Sensation grossly intact in all 3 limbs, except decreased to light touch RLE +mild expressive aphasia with word finding difficulty able to follow two-step commands, +clonus right LE, brisk patellar reflex on right EXTREMITIES: 5\\5 strength Left upper extremity, 4+/5 right UE 2/5 right hip flexors, knee extensors, 1/5 ankle DF, EHL, 2/5 PF 5/5 strength in left lower extremity. SKIN: Left IJ permacath, left AVF, no sacral ulcers, left forearm skin tear ASSESSMENT:69-year-old M with past medical history of ESRD on HD who presents status post left GAMA and M2 stroke PLAN: 1.Rehab: PT strenghthen/stretch/maintain ROM bilat LE- multipodus boot in bed, ambulating with RW- per therapy his right leg buckled today OT- strengthen/stretch/maintain ROM bilat UE- energy conservation STUDENT DEAN- assess for cog defects and treat, STUDENT DEAN voiced concerns patient's verbal processing has regressed 2. Neuro: s/p left GAMA and M2 infarct in setting of Afib- c/u Eliquis 2.5mg BID and metoprolol -repeat MRI 09-21-19 showing "Relatively acute posterior left perisylvian and left frontal centrum semiovale infarcts, probably with areas of petechial hemorrhage", discussed findings with [facility] radiologist who reported frontal petechial hemorrhage was not present on MRI 08-25-19, but M2 petechial hemorrhage was, CT scan 09-22-19 showing no acute infarct, discussed case with Dr. Andrew who recommends holding ASA for at least a month -patient clinically stable and able to participate in therapy 3. Cardiac: grade 2 diastolic CHF with HTN and Afib- c/u metoprolol and Eliquis 2.5 BID and Lipitor, discussed with medicine -ASA on hold at least a month 4. Resp: encourage incentive spirometry 5. Renal: ESRD on HD //Saturday with recent episodes of hypokalemia- renal consulted, recs appreciated 6. 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 did not show ischemic changes- patient not reporting abdominal pain 7. GI: persistent diarrhea possible due to bowl ischemia vs reaction to recent chemotherapy-improving -C diff and diarrhea panel negative - FOBT negative, c/u immodium prn, Bacid, and metamucil -hx of adenocarcinoma s/p resection and chemo- will need to follow-up with Oncologist -c/u Anusol rectal suppository for rectal pain 8. Heme: anemia of chronic disease- FOBT negative 8. Endo: pmh DM c/u insulin therapy 9. : monitor PVRs 10. Psych: Celexa for depression 11. Pain: tylneol prn 12. Dispo: 09-29-19 to home, progressing towards goals Allergies Coded Allergies: enalapril (Verified Allergy, Unknown, 09/14/19) Vital Signs Vital Signs Date Time Temp Pulse Resp B/P (MAP) Pulse Ox O2 Delivery O2 Flow Rate FiO2 09/23/19 08:54 72 134/65 09/23/19 06:43 98.0 18 98 Room Air Laboratory Data Labs 24H Laboratory Tests 2 09/22/19 21:03: Bedside Glucose (Misc Panel) 211H 09/23/19 06:24: Bedside Glucose (Misc Panel) 96 09/23/19 11:23: Bedside Glucose (Misc Panel) 121H Microbiology Microbiology 09/17/19 Stool Occult Blood (MALU) - Final, Complete 09/14/19 Blood Culture - Final, Complete NO GROWTH AFTER 5 DAYS 09/14/19 Blood Culture - Final, Complete NO GROWTH AFTER 5 DAYS Current Medications Current Medications Current Medications Medications (Trade) Dose Ordered Sig/Leilani Route PRN Reason Start Time Stop Time Status Last Admin Dose Admin Acetaminophen (Tylenol Tab) 650 mg Q6HP PRN PO PAIN / FEVER 09/18/19 20:00 09/21/19 15:24 DC 09/21/19 08:12 Acetaminophen (Tylenol Tab) 1,000 mg TID PO 09/21/19 16:00 09/23/19 08:54 Apixaban (Eliquis) 2.5 mg BID PO 09/14/19 21:00 09/23/19 08:54 Aspirin (Ecotrin) 81 mg DAILY PO 09/17/19 09:00 09/21/19 20:48 DC 09/21/19 08:09 Atorvastatin Calcium (Lipitor) 20 mg QHS PO 09/17/19 21:00 09/21/19 15:24 DC 09/20/19 20:10 Atorvastatin Calcium (Lipitor) 40 mg DAILY PO 09/15/19 09:00 09/23/19 08:53 Calcium Acetate (Phoslo) 667 mg TID PO 09/14/19 16:00 09/14/19 20:30 DC 09/14/19 17:38 Calcium Acetate (Phoslo) 667 mg WM PO 09/15/19 08:00 09/23/19 08:55 Citalopram Hydrobromide (CeleXA) 20 mg DAILY PO 09/15/19 09:00 09/23/19 08:54 Darbepoetin Tyrone (Aranesp (Dialysis Use)) 200 mcg HD IV 09/15/19 09:00 Dexamethasone (Decadron) 2 mg BID PO 09/21/19 21:00 09/22/19 09:57 DC 09/22/19 08:45 Dextrose (Dextrose 50%) 25 ml ASDIRECTED PRN IV SEE LABEL COMMENTS 09/14/19 13:45 Ferrous Sulfate (Ferrous Sulfate) 325 mg DAILY PO 09/15/19 09:00 09/15/19 08:54 DC 09/15/19 08:19 Folic Acid (Folic Acid) 1 mg DAILY PO 09/15/19 09:00 09/23/19 08:53 Glucagon (Glucagon) 1 mg ASDIRECTED PRN SC SEE LABEL COMMENTS 09/14/19 13:45 Glucose (Glucose) 16 GM ASDIRECTED PRN PO SEE LABEL COMMENTS 09/14/19 13:45 Home Med (Med Rec Complete!) ASDIRECTED XX 09/14/19 13:15 09/14/19 13:16 DC Hydrocortisone Acetate (Anusol Hc Supp) 25 mg BID DE 09/21/19 09:00 09/23/19 08:55 Insulin Detemir (Levemir Insulin) 10 units BID SC 09/14/19 21:00 09/22/19 21:17 Insulin Human Lispro (HumaLOG INSULIN) SEE PROTOCOL TABLE AC SC 09/14/19 17:30 09/22/19 12:28 Insulin Human Lispro (HumaLOG INSULIN) SEE PROTOCOL TABLE QHS SC 09/14/19 21:00 Iron (Venofer) 100 mg HD IV 09/15/19 09:00 09/24/19 09:01 Lactobacillus Acidophilus (Bacid) 1 ea TID PO 09/14/19 16:00 09/23/19 08:54 Loperamide HCl (Imodium) 2 mg ASDIRECTED PRN PO DIARRHEA 09/14/19 13:45 09/18/19 15:33 DC 09/14/19 17:41 Loperamide HCl (Imodium) 2 mg TID PO 09/18/19 16:00 09/22/19 21:13 Metoprolol Tartrate (Lopressor) 25 mg BID PO 09/14/19 21:00 09/23/19 08:54 Miscellaneous (Unresolved Clarification Entry) SEE LABEL COMMENTS DAILY XX 09/21/19 09:00 09/21/19 11:41 DC Pantoprazole Sodium (Protonix) 40 mg BID PO 09/14/19 21:00 09/23/19 08:54 Phenyleph/Shark Oil/Min Oil/Petrol (Preparation H Ointment) DAILYPRN PRN TOP HEMORRHOIDS 09/19/19 10:45 09/21/19 12:17 Psyllium Hydrophilic Mucilloid (Metamucil) 1 pkt BID PO 09/18/19 21:00 09/22/19 15:25 DC Psyllium Hydrophilic Mucilloid (Metamucil) 1 pkt DAILY PO 09/15/19 09:00 09/18/19 15:33 DC 09/18/19 09:12 Sodium Bicarbonate (Sodium Bicarbonate) 1,300 mg TID PO 09/14/19 16:00 09/15/19 08:54 DC 09/15/19 08:18 Tetrahydrozoline HCl (Visine) 1 drop TID OU 09/14/19 16:00 09/23/19 08:55 VIANCA LEMUS MD Sep 23, 2019 11:49
[2019-09-23 14:00] VITALS: BP 132/67
[2019-09-23] MEDS ORDERED: BACLOFEN 5MG PER 1/2 TABLET PO ONE (16:00)
[2019-09-23 20:00] VITALS: BP 134/63
[2019-09-24 05:45] VITALS: BP 142/75
[2019-09-24] MEDS: HumaLOG INSULIN (NovoLOG) PER UNIT SC SCH ×4 (07:17→19:55)
[2019-09-24] MEDS: ANUSOL HC 25MG SUPP PR SCH ×2 (07:56→19:54)
[2019-09-24] MEDS: LEVEMIR (INSULIN DETEMIR) 1 UNITS/0.01ML SC SCH ×2 (07:58→19:55)
[2019-09-24] MEDS: LACTOBACILLUS ACIDOPHILUS CAP (BACID) PO SCH ×3 (07:59→19:57)
[2019-09-24] MEDS: TETRAHYDROZOLINE OPHTH 0.05% 15 ML BTL OU SCH ×3 (07:59→19:55)
[2019-09-24] MEDS: FOLIC ACID 1 MG TAB PO SCH (07:59)
[2019-09-24] MEDS: PANTOPRAZOLE 40MG TAB (PROTONIX) PO SCH ×2 (07:59→19:54)
[2019-09-24] MEDS: ATORVASTATIN 20 MG TAB PO SCH (07:59)
[2019-09-24] MEDS: APIXABAN 2.5 MG TAB (ELIQUIS) PO SCH ×2 (08:00→19:54)
[2019-09-24] MEDS: ACETAMINOPHEN 500 MG TAB PO SCH ×3 (08:00→19:55)
[2019-09-24] MEDS: CALCIUM ACETATE 667 MG GELCAP PO SCH ×3 (08:00→17:31)
[2019-09-24] MEDS: METOPROLOL TART 25 MG TABLET PO SCH ×2 (08:00→19:54)
[2019-09-24] MEDS: CitaloPRAM (CeleXA) 20 MG TAB PO SCH (08:00)
[2019-09-24 10:05] LABS: HEMATOCRIT 34.3 % (42.0-52.0); MEAN CORPUSCULAR HEMOGLOBIN 29.7 pg (27.0-33.0); MEAN CORPUSCULAR HGB CONC 29.2 g/dl (32.0-36.5); MEAN CORPUSCULAR VOLUME 101.8 fl (80.0-96.0); PLATELET COUNT, AUTOMATED 286 10^3/uL (150-450); RED BLOOD COUNT 3.37 10^6/uL (4.30-6.10); WHITE BLOOD COUNT 12.9 10^3/uL (4.0-10.0)
[2019-09-24 10:24] LABS: CREATININE FOR GFR 4.19 MG/DL (0.70-1.30); GLOMERULAR FILTRATION RATE 15.1 (>49); POTASSIUM SERUM 3.8 MEQ/L (3.5-5.1)
[2019-09-24] MEDS: BACLOFEN 5MG PER 1/2 TABLET PO SCH ×3 (11:44→19:54)
[2019-09-24] MEDS ORDERED: IRON SUCROSE 100MG 5ML VIAL (J1756 PER 1MG) IV SCH (12:00)
[2019-09-24] MEDS ORDERED: HEPARIN 1,000 UNITS/ML 10ML VIAL (FOR RADIOLOGY& DIALYSIS ONLY) XX ONE (12:15)
[2019-09-24] MEDS ORDERED: HEPARIN 1,000 UNITS/ML 10ML VIAL (FOR RADIOLOGY& DIALYSIS ONLY) IV ONE (12:15)
[2019-09-24 12:53] VITALS: BP 145/70
--- NOTE | 2019-09-24 16:37 | IPN ---
DATE OF SERVICE: 09/24/2019 HISTORY OF PRESENT ILLNESS: He is a 69-year-old male patient on the acute rehabilitation unit, having had an embolic ischemic stroke in the left posterior division of the middle cerebral artery and left arterial cerebral artery with petechial hemorrhage. He continues to have some right arm and leg numbness and weakness, expressive aphagia, which is improving. He has a history of end stage renal disease and is being followed also by nephrology. He had a consultation with Dr. Andrew yesterday, who recommended discontinuing aspirin, which has been done, Eliquis 2.5 mg by mouth twice a day, which he is on, Lipitor 40 mg daily. He does say the aspirin 81 mg can be provided after a month if it is indicated for his peripheral arterial and vascular disease. He recommends keeping tank terminal gauger systolic blood pressure 130 or below and diastolic 80 or below. He is feeling well. LABORATORY STUDIES: White count 12.9, up slightly, hemoglobin 10.0, hematocrit 34.3, platelets 286. Electrolytes are normal. BUN 27, creatinine 4.19, up slightly from his baseline. He had a nephrology consultation. He is followed by Dr. Coleen Bernabe. He continues on dialysis. He goes on Tuesdays, and Saturdays and is tolerating it well. He has a history of anemia and he continues on Venofer with dialysis and Aranesp as well. We will continue to monitor hemoglobin and hematocrit. Hypertension. Continue current medications. Blood pressure ranging around 140 to 145 over 70 to 75. Expect improvement after dialysis today. He continues to participate with physical therapy (PT). PHYSICAL EXAMINATION: GENERAL: Stool for occult blood has been tested and are negative. Blood cultures show no growth after 5 days. PHYSICAL EXAMINATION: Blood pressure 140/75, pulse 72, respirations 18. The patient is alert and oriented. HEENT: Pupils are equal and reactive to light. Extraocular muscles intact. Sclerae clear. Conjunctivae normal. No facial asymmetry. Pharynx, gums and tongue pink and moist. Tongue is midline. NECK: Supple without lymphadenopathy, thyromegaly or goiter. Carotids 2+ without bruit. CHEST: Clear to auscultation without wheeze or retraction. HEART: Regular. ABDOMEN: Benign. Bowel sounds positive. GENITOURINARY/RECTAL: Not done. EXTREMITIES: No clubbing, cyanosis, and edema. Peripheral pulses equal and palpable bilaterally. SKIN: Warm and dry. IMPRESSION/PLAN: 1. End stage renal disease. Continue dialysis. 2. Diabetes. Continue current medications and fingerstick blood sugars. 3. History of CA, status post colectomy and had been on chemotherapy when admitted to rehabilitation. Continue followup with oncology. 4. Depression. Continue antidepressants. 5. Atrial fibrillation. Continue on Lopressor and Eliquis. 6. Hypercholesterolemia. Continue Lipitor. 7. CVA. Continue rehabilitation per Dr. Whitman.
[2019-09-24 20:00] VITALS: BP 138/68
--- NOTE | 2019-09-24 20:56 | IPN ---
DATE: 09/24/2019 SUBJECTIVE: Rocael is seen and examined this afternoon at the bedside in the hemodialysis unit, receiving his maintenance treatment. He denies any overnight complaints or issues, has been tolerating dialysis without any issues. Perma-Cath is in good use. I note recent recommendations from neurology and update the changes in his medications. Vital signs: Temperature 98.3, pulse 63, respiratory rate 18, blood pressure 142/75, saturating 98% on room air. Intake yesterday was 840, dialysis today remove 1500, weight in the bed scale today is not recorded. General: The patient is seen in the hemodialysis unit receiving his treatment. He is awake, alert and oriented times three, comfortable and in no apparent distress. Extraocular muscles are intact. Sclerae are anicteric. Neck is supple. Jugular veins are not elevated Perma-Cath in the left chest wall is in use. Cardiac: Regular rate and rhythm. No edema in the peripheries. No murmur. Lungs are clear to auscultation bilaterally. No crackle, rale or rhonchus. Abdomen is soft and nontender. There are bowel sounds. Neurologic: The patient is awake, alert, oriented to person, place, situation, cooperative with physical exam and conversational. He has mild expressive aphasia with word finding difficulty. Extremities are negative for edema, decreased muscle strength on the right arm and leg. LABORATORY: White count 12.9, hemoglobin 10.0, platelet 286, sodium 139, potassium 3.8, bicarbonate 28, glucose 186. INPATIENT MEDICATIONS: Noted patient was started on baclofen. His remainder medications are unchanged from prior. PROBLEMS: 1. End-stage renal disease, on hemodialysis on a Saturday, , Saturday schedule. The patient is tolerating dialysis without issue. His Perma-Cath is in good use. His electrolytes and volume status are acceptable. No changes being made to his current prescription. 2. Anemia related to end-stage renal disease and iron deficiency. His transferrin saturation was 15%. He is receiving Venofer with dialysis. His hemoglobin is optimal at 10.0, which is goal for end-stage renal disease and he continues on Aranesp. 3. Hypertension. Blood pressures are noted to be systolic 130s mostly today and up to 140. Neurology recommendations are noted in regards to blood pressure goal, and the patient continues on metoprolol. 4. Renal osteodystrophy. Continue current dose of PhosLo. His calcium and phosphorus levels are acceptable. His parathyroid hormone is depressed.
[2019-09-25 06:00] VITALS: BP 128/92
[2019-09-25] MEDS: HumaLOG INSULIN (NovoLOG) PER UNIT SC SCH ×4 (07:30→21:00)
[2019-09-25] MEDS: LEVEMIR (INSULIN DETEMIR) 1 UNITS/0.01ML SC SCH ×2 (09:00→21:10)
[2019-09-25] MEDS ORDERED: GABAPENTIN 300 MG CAP PO SCH (09:00)
[2019-09-25] MEDS: PANTOPRAZOLE 40MG TAB (PROTONIX) PO SCH ×2 (09:07→21:09)
[2019-09-25] MEDS: CALCIUM ACETATE 667 MG GELCAP PO SCH ×3 (09:07→17:35)
[2019-09-25] MEDS: LACTOBACILLUS ACIDOPHILUS CAP (BACID) PO SCH ×3 (09:07→21:09)
[2019-09-25] MEDS: BACLOFEN 5MG PER 1/2 TABLET PO SCH (09:07)
[2019-09-25] MEDS: APIXABAN 2.5 MG TAB (ELIQUIS) PO SCH ×2 (09:07→21:09)
[2019-09-25] MEDS: FOLIC ACID 1 MG TAB PO SCH (09:07)
[2019-09-25] MEDS: CitaloPRAM (CeleXA) 20 MG TAB PO SCH (09:07)
[2019-09-25] MEDS: ATORVASTATIN 20 MG TAB PO SCH (09:07)
[2019-09-25] MEDS: METOPROLOL TART 25 MG TABLET PO SCH ×2 (09:08→21:10)
[2019-09-25] MEDS: ANUSOL HC 25MG SUPP PR SCH ×2 (09:09→21:11)
[2019-09-25] MEDS: ACETAMINOPHEN 500 MG TAB PO SCH ×3 (09:09→21:09)
[2019-09-25] MEDS: TETRAHYDROZOLINE OPHTH 0.05% 15 ML BTL OU SCH ×3 (09:09→21:11)
--- NOTE | 2019-09-25 13:26 | IPNPDOC ---
PM&R Progress Note DATE OF SERVICE: Sep 25, 2019 Family Living Educator Progress Note Subjective: Patient seen with family, stating he feels more tired today, still with word finding and speech production deficits. He believes the baclofen is helping his rectal pain, but no well enough. REVIEW OF SYSTEMS: The following is a completed review of systems and has been reviewed. Review of systems otherwise unremarkable. PAIN: Patient self reports no pain EYES: No recent vision changes EARS, NOSE, & THROAT: No throat pain, or dysphagia, or rhinorrhea CARDIOVASCULAR: Denies chest pain or palpitations PULMONARY: Denies shortness of breath GASTROINTESTINAL: +diarrhea (resolved) GENITOURINARY: denies dysuria MUSCULOSKELETAL:RLE>RUE weakness NEUROLOGICAL:+stroke HEMATOLOGICAL:+anemia SKIN: AVF and permacath, left forearm skin tear PSYCHIATRIC: Unremarkable All other review of systems found to be negative. PHYSICAL EXAMINATION: VITAL SIGNS: Please see below. GENERAL: Pleasant and cooperative. No acute distress. HEENT: PERRL. Extraocular movements intact. Clear conjunctiva CARDIOVASCULAR: Regular rate and rhythm. No murmurs, rubs, or gallops LUNGS: Clear to auscultation bilaterally. No wheezes. No rhonchi ABDOMEN: Soft, nontender, nondistended. Positive bowel sounds. Normal active bowel sounds NEUROLOGICAL: Alert and oriented times three. Cranial nerves II through XII grossly intact. Sensation grossly intact in all 3 limbs, except decreased to light touch RLE +mild expressive aphasia with word finding difficulty able to follow two-step commands, +clonus right LE, brisk patellar reflex on right EXTREMITIES: 5\\5 strength Left upper extremity, 4+/5 right UE 2/5 right hip flexors, knee extensors, 1/5 ankle DF, EHL, 2/5 PF 5/5 strength in left lower extremity. 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 Neuro: s/p left GAMA and M2 infarct in setting of Afib- c/u Eliquis 2.5mg BID and metoprolol -repeat MRI 09-21-19 showing "Relatively acute posterior left perisylvian and left frontal centrum semiovale infarcts, probably with areas of petechial hemorrhage", discussed findings with [facility] radiologist who reported frontal petechial hemorrhage was not present on MRI 08-25-19, but M2 petechial hemorrhage was, CT scan 09-22-19 showing no acute infarct, discussed case with Dr. Andrew who recommends holding ASA for at least a month -patient clinically stable and able to participate in therapy 3. Cardiac: grade 2 diastolic CHF with HTN and Afib- c/u metoprolol and Eliquis 2.5 BID and Lipitor, discussed with medicine -ASA on hold at least a month 4. Resp: encourage incentive spirometry 5. Renal: ESRD on HD //Saturday with recent episodes of hypokalemia- renal consulted, recs appreciated 6. 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 GI: persistent diarrhea possible due to bowl ischemia vs reaction to recent chemotherapy-improving -C diff and diarrhea panel negative - FOBT negative, c/u immodium prn, Bacid, and metamucil -hx of adenocarcinoma s/p resection and chemo- will need to follow-up with Oncologist -c/u Anusol rectal suppository and baclofen for rectal pain, patient received one time dose of gabapentin today, will monitor for side effects 8. Heme: anemia of chronic disease- FOBT negative 8. Endo: pmh DM c/u insulin therapy 9. : monitor PVRs 10. Psych: Celexa for depression 11. Pain: tylneol prn 12. Dispo: 09-30-19 to home with 24-7 supervision, progressing towards goals Allergies Coded Allergies: enalapril (Verified Allergy, Unknown, 09/14/19) Vital Signs Vital Signs Date Time Temp Pulse Resp B/P (MAP) Pulse Ox O2 Delivery O2 Flow Rate FiO2 09/25/19 09:08 88 130/90 09/25/19 06:00 97.0 18 95 Room Air Laboratory Data Labs 24H Laboratory Tests 2 09/24/19 17:26: Bedside Glucose (Misc Panel) 94 09/24/19 19:39: Bedside Glucose (Misc Panel) 137H 09/25/19 06:55: Bedside Glucose (Misc Panel) 101 09/25/19 12:10: Bedside Glucose (Misc Panel) 177H Microbiology Microbiology 09/17/19 Stool Occult Blood (MALU) - Final, Complete Current Medications Current Medications Current Medications Medications (Trade) Dose Ordered Sig/Leilani Route PRN Reason Start Time Stop Time Status Last Admin Dose Admin Acetaminophen (Tylenol Tab) 650 mg Q6HP PRN PO PAIN / FEVER 09/18/19 20:00 09/21/19 15:24 DC 09/21/19 08:12 Acetaminophen (Tylenol Tab) 1,000 mg TID PO 09/21/19 16:00 09/25/19 09:09 Apixaban (Eliquis) 2.5 mg BID PO 09/14/19 21:00 09/25/19 09:07 Aspirin (Ecotrin) 81 mg DAILY PO 09/17/19 09:00 09/21/19 20:48 DC 09/21/19 08:09 Atorvastatin Calcium (Lipitor) 20 mg QHS PO 09/17/19 21:00 09/21/19 15:24 DC 09/20/19 20:10 Atorvastatin Calcium (Lipitor) 40 mg DAILY PO 09/15/19 09:00 09/25/19 09:07 Baclofen (Lioresal) 5 mg DAILY PO 09/26/19 09:00 Baclofen (Lioresal) 5 mg TID PO 09/24/19 11:15 09/25/19 10:19 DC 09/25/19 09:07 Calcium Acetate (Phoslo) 667 mg TID PO 09/14/19 16:00 09/14/19 20:30 DC 09/14/19 17:38 Calcium Acetate (Phoslo) 667 mg WM PO 09/15/19 08:00 09/25/19 12:51 Citalopram Hydrobromide (CeleXA) 20 mg DAILY PO 09/15/19 09:00 09/25/19 09:07 Darbepoetin Tyrone (Aranesp (Dialysis Use)) 200 mcg HD IV 09/15/19 09:00 Dexamethasone (Decadron) 2 mg BID PO 09/21/19 21:00 09/22/19 09:57 DC 09/22/19 08:45 Dextrose (Dextrose 50%) 25 ml ASDIRECTED PRN IV SEE LABEL COMMENTS 09/14/19 13:45 Ferrous Sulfate (Ferrous Sulfate) 325 mg DAILY PO 09/15/19 09:00 09/15/19 08:54 DC 09/15/19 08:19 Folic Acid (Folic Acid) 1 mg DAILY PO 09/15/19 09:00 09/25/19 09:07 Glucagon (Glucagon) 1 mg ASDIRECTED PRN SC SEE LABEL COMMENTS 09/14/19 13:45 Glucose (Glucose) 16 GM ASDIRECTED PRN PO SEE LABEL COMMENTS 09/14/19 13:45 Home Med (Med Rec Complete!) ASDIRECTED XX 09/14/19 13:15 09/14/19 13:16 DC Hydrocortisone Acetate (Anusol Hc Supp) 25 mg BID SC 09/21/19 09:00 09/25/19 09:09 Insulin Detemir (Levemir Insulin) 5 units BID SC 09/25/19 09:00 Insulin Detemir (Levemir Insulin) 10 units BID SC 09/14/19 21:00 09/25/19 10:18 DC 09/23/19 21:21 Insulin Human Lispro (HumaLOG INSULIN) SEE PROTOCOL TABLE AC SC 09/14/19 17:30 09/25/19 12:51 Insulin Human Lispro (HumaLOG INSULIN) SEE PROTOCOL TABLE QHS SC 09/14/19 21:00 Iron (Venofer) 100 mg HD IV 09/24/19 12:00 Iron (Venofer) 100 mg HD IV 09/15/19 09:00 09/24/19 09:01 DC Lactobacillus Acidophilus (Bacid) 1 ea TID PO 09/14/19 16:00 09/25/19 09:07 Loperamide HCl (Imodium) 2 mg ASDIRECTED PRN PO DIARRHEA 09/14/19 13:45 09/18/19 15:33 DC 09/14/19 17:41 Loperamide HCl (Imodium) 2 mg TID PO 09/18/19 16:00 09/23/19 15:45 DC 09/22/19 21:13 Metoprolol Tartrate (Lopressor) 25 mg BID PO 09/14/19 21:00 09/25/19 09:08 Miscellaneous (Unresolved Clarification Entry) SEE LABEL COMMENTS DAILY XX 09/21/19 09:00 09/21/19 11:41 DC Pantoprazole Sodium (Protonix) 40 mg BID PO 09/14/19 21:00 09/25/19 09:07 Phenyleph/Shark Oil/Min Oil/Petrol (Preparation H Ointment) DAILYPRN PRN TOP HEMORRHOIDS 09/19/19 10:45 09/21/19 12:17 Psyllium Hydrophilic Mucilloid (Metamucil) 1 pkt BID PO 09/18/19 21:00 09/22/19 15:25 DC Psyllium Hydrophilic Mucilloid (Metamucil) 1 pkt DAILY PO 09/15/19 09:00 09/18/19 15:33 DC 09/18/19 09:12 Sodium Bicarbonate (Sodium Bicarbonate) 1,300 mg TID PO 09/14/19 16:00 09/15/19 08:54 DC 09/15/19 08:18 Tetrahydrozoline HCl (Visine) 1 drop TID OU 09/14/19 16:00 09/25/19 09:09 VIANCA LEMUS MD Sep 25, 2019 13:26
--- NOTE | 2019-09-25 13:26 | IPNPDOC ---
PM&R Progress Note DATE OF SERVICE: Sep 24, 2019 Administrative Judge Progress Note Subjective: Patient reporting his rectal pain is relieved with baclofen and would like to continue using it. REVIEW OF SYSTEMS: The following is a completed review of systems and has been reviewed. Review of systems otherwise unremarkable. PAIN: Patient self reports no pain EYES: No recent vision changes EARS, NOSE, & THROAT: No throat pain, or dysphagia, or rhinorrhea CARDIOVASCULAR: Denies chest pain or palpitations PULMONARY: Denies shortness of breath GASTROINTESTINAL: +diarrhea (resolved) GENITOURINARY: denies dysuria MUSCULOSKELETAL:RLE>RUE weakness NEUROLOGICAL:+stroke HEMATOLOGICAL:+anemia SKIN: AVF and permacath, left forearm skin tear PSYCHIATRIC: Unremarkable All other review of systems found to be negative. PHYSICAL EXAMINATION: VITAL SIGNS: Please see below. GENERAL: Pleasant and cooperative. No acute distress. HEENT: PERRL. Extraocular movements intact. Clear conjunctiva CARDIOVASCULAR: Regular rate and rhythm. No murmurs, rubs, or gallops LUNGS: Clear to auscultation bilaterally. No wheezes. No rhonchi ABDOMEN: Soft, nontender, nondistended. Positive bowel sounds. Normal active bowel sounds NEUROLOGICAL: Alert and oriented times three. Cranial nerves II through XII grossly intact. Sensation grossly intact in all 3 limbs, except decreased to light touch RLE +mild expressive aphasia with word finding difficulty able to follow two-step commands, +clonus right LE, brisk patellar reflex on right EXTREMITIES: 5\\5 strength Left upper extremity, 4+/5 right UE 2/5 right hip flexors, knee extensors, 1/5 ankle DF, EHL, 2/5 PF 5/5 strength in left lower extremity. 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 Neuro: s/p left GAMA and M2 infarct in setting of Afib- c/u Eliquis 2.5mg BID and metoprolol -repeat MRI 09-21-19 showing "Relatively acute posterior left perisylvian and left frontal centrum semiovale infarcts, probably with areas of petechial hemorrhage", discussed findings with [facility] radiologist who reported frontal petechial hemorrhage was not present on MRI 08-25-19, but M2 petechial hemorrhage was, CT scan 09-22-19 showing no acute infarct, discussed case with Dr. Andrew who recommends holding ASA for at least a month -patient clinically stable and able to participate in therapy 3. Cardiac: grade 2 diastolic CHF with HTN and Afib- c/u metoprolol and Eliquis 2.5 BID and Lipitor, discussed with medicine -ASA on hold at least a month 4. Resp: encourage incentive spirometry 5. Renal: ESRD on HD //Saturday with recent episodes of hypokalemia- renal consulted, recs appreciated 6. 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 GI: persistent diarrhea possible due to bowl ischemia vs reaction to recent chemotherapy-improving -C diff and diarrhea panel negative - FOBT negative, c/u immodium prn, Bacid, and metamucil -hx of adenocarcinoma s/p resection and chemo- will need to follow-up with Oncologist -c/u Anusol rectal suppository and baclofen for rectal pain 8. Heme: anemia of chronic disease- FOBT negative 8. Endo: pmh DM c/u insulin therapy 9. : monitor PVRs 10. Psych: Celexa for depression 11. Pain: tylneol prn 12. Dispo: 09-29-19 to home, progressing towards goals Allergies Coded Allergies: enalapril (Verified Allergy, Unknown, 09/14/19) Vital Signs Vital Signs Date Time Temp Pulse Resp B/P (MAP) Pulse Ox O2 Delivery O2 Flow Rate FiO2 09/25/19 09:08 88 130/90 09/25/19 06:00 97.0 18 95 Room Air Laboratory Data Labs 24H Laboratory Tests 2 09/24/19 17:26: Bedside Glucose (Misc Panel) 94 09/24/19 19:39: Bedside Glucose (Misc Panel) 137H 09/25/19 06:55: Bedside Glucose (Misc Panel) 101 09/25/19 12:10: Bedside Glucose (Misc Panel) 177H Microbiology Microbiology 09/17/19 Stool Occult Blood (MALU) - Final, Complete Current Medications Current Medications Current Medications Medications (Trade) Dose Ordered Sig/Leilani Route PRN Reason Start Time Stop Time Status Last Admin Dose Admin Acetaminophen (Tylenol Tab) 650 mg Q6HP PRN PO PAIN / FEVER 09/18/19 20:00 09/21/19 15:24 DC 09/21/19 08:12 Acetaminophen (Tylenol Tab) 1,000 mg TID PO 09/21/19 16:00 09/25/19 09:09 Apixaban (Eliquis) 2.5 mg BID PO 09/14/19 21:00 09/25/19 09:07 Aspirin (Ecotrin) 81 mg DAILY PO 09/17/19 09:00 09/21/19 20:48 DC 09/21/19 08:09 Atorvastatin Calcium (Lipitor) 20 mg QHS PO 09/17/19 21:00 09/21/19 15:24 DC 09/20/19 20:10 Atorvastatin Calcium (Lipitor) 40 mg DAILY PO 09/15/19 09:00 09/25/19 09:07 Baclofen (Lioresal) 5 mg DAILY PO 09/26/19 09:00 Baclofen (Lioresal) 5 mg TID PO 09/24/19 11:15 09/25/19 10:19 DC 09/25/19 09:07 Calcium Acetate (Phoslo) 667 mg TID PO 09/14/19 16:00 09/14/19 20:30 DC 09/14/19 17:38 Calcium Acetate (Phoslo) 667 mg WM PO 09/15/19 08:00 09/25/19 12:51 Citalopram Hydrobromide (CeleXA) 20 mg DAILY PO 09/15/19 09:00 09/25/19 09:07 Darbepoetin Tyrone (Aranesp (Dialysis Use)) 200 mcg HD IV 09/15/19 09:00 Dexamethasone (Decadron) 2 mg BID PO 09/21/19 21:00 09/22/19 09:57 DC 09/22/19 08:45 Dextrose (Dextrose 50%) 25 ml ASDIRECTED PRN IV SEE LABEL COMMENTS 09/14/19 13:45 Ferrous Sulfate (Ferrous Sulfate) 325 mg DAILY PO 09/15/19 09:00 09/15/19 08:54 DC 09/15/19 08:19 Folic Acid (Folic Acid) 1 mg DAILY PO 09/15/19 09:00 09/25/19 09:07 Glucagon (Glucagon) 1 mg ASDIRECTED PRN SC SEE LABEL COMMENTS 09/14/19 13:45 Glucose (Glucose) 16 GM ASDIRECTED PRN PO SEE LABEL COMMENTS 09/14/19 13:45 Home Med (Med Rec Complete!) ASDIRECTED XX 09/14/19 13:15 09/14/19 13:16 DC Hydrocortisone Acetate (Anusol Hc Supp) 25 mg BID MS 09/21/19 09:00 09/25/19 09:09 Insulin Detemir (Levemir Insulin) 5 units BID SC 09/25/19 09:00 Insulin Detemir (Levemir Insulin) 10 units BID SC 09/14/19 21:00 09/25/19 10:18 DC 09/23/19 21:21 Insulin Human Lispro (HumaLOG INSULIN) SEE PROTOCOL TABLE AC SC 09/14/19 17:30 09/25/19 12:51 Insulin Human Lispro (HumaLOG INSULIN) SEE PROTOCOL TABLE QHS LA 09/14/19 21:00 Iron (Venofer) 100 mg HD IV 09/24/19 12:00 Iron (Venofer) 100 mg HD IV 09/15/19 09:00 09/24/19 09:01 DC Lactobacillus Acidophilus (Bacid) 1 ea TID PO 09/14/19 16:00 09/25/19 09:07 Loperamide HCl (Imodium) 2 mg ASDIRECTED PRN PO DIARRHEA 09/14/19 13:45 09/18/19 15:33 DC 09/14/19 17:41 Loperamide HCl (Imodium) 2 mg TID PO 09/18/19 16:00 09/23/19 15:45 DC 09/22/19 21:13 Metoprolol Tartrate (Lopressor) 25 mg BID PO 09/14/19 21:00 09/25/19 09:08 Miscellaneous (Unresolved Clarification Entry) SEE LABEL COMMENTS DAILY XX 09/21/19 09:00 09/21/19 11:41 DC Pantoprazole Sodium (Protonix) 40 mg BID PO 09/14/19 21:00 09/25/19 09:07 Phenyleph/Shark Oil/Min Oil/Petrol (Preparation H Ointment) DAILYPRN PRN TOP HEMORRHOIDS 09/19/19 10:45 09/21/19 12:17 Psyllium Hydrophilic Mucilloid (Metamucil) 1 pkt BID PO 09/18/19 21:00 09/22/19 15:25 DC Psyllium Hydrophilic Mucilloid (Metamucil) 1 pkt DAILY PO 09/15/19 09:00 09/18/19 15:33 DC 09/18/19 09:12 Sodium Bicarbonate (Sodium Bicarbonate) 1,300 mg TID PO 09/14/19 16:00 09/15/19 08:54 DC 09/15/19 08:18 Tetrahydrozoline HCl (Visine) 1 drop TID OU 09/14/19 16:00 09/25/19 09:09 VIANCA LEMUS MD Sep 25, 2019 13:26
[2019-09-25 14:00] VITALS: BP 105/57
[2019-09-25] MEDS ORDERED: BACLOFEN 5MG PER 1/2 TABLET PO SCH (14:00)
[2019-09-25] MEDS ORDERED: LOPERAMIDE 2 MG CAPLET PO PRN (16:30)
[2019-09-25 20:10] VITALS: BP 138/74
[2019-09-25] MEDS ORDERED: BACLOFEN 5MG PER 1/2 TABLET PO PRN (21:00)
[2019-09-26 06:55] VITALS: BP 160/80
[2019-09-26] MEDS: HumaLOG INSULIN (NovoLOG) PER UNIT SC SCH ×4 (07:30→21:00)
[2019-09-26] MEDS: CALCIUM ACETATE 667 MG GELCAP PO SCH ×3 (08:00→17:38)
[2019-09-26] MEDS ORDERED: GABAPENTIN 100 MG CAP PO SCH (09:00)
[2019-09-26] MEDS: CitaloPRAM (CeleXA) 20 MG TAB PO SCH (09:00)
[2019-09-26] MEDS: ACETAMINOPHEN 500 MG TAB PO SCH ×3 (09:00→21:03)
[2019-09-26] MEDS: TETRAHYDROZOLINE OPHTH 0.05% 15 ML BTL OU SCH ×3 (09:00→21:04)
[2019-09-26] MEDS: FOLIC ACID 1 MG TAB PO SCH (09:00)
[2019-09-26] MEDS: PANTOPRAZOLE 40MG TAB (PROTONIX) PO SCH ×2 (09:00→21:03)
[2019-09-26] MEDS: LACTOBACILLUS ACIDOPHILUS CAP (BACID) PO SCH ×3 (09:00→21:01)
[2019-09-26] MEDS ORDERED: BACLOFEN 5MG PER 1/2 TABLET PO SCH (09:00)
[2019-09-26] MEDS: ATORVASTATIN 20 MG TAB PO SCH (09:00)
[2019-09-26] MEDS: METOPROLOL TART 25 MG TABLET PO SCH ×2 (09:00→21:03)
[2019-09-26] MEDS: ANUSOL HC 25MG SUPP PR SCH ×2 (09:00→21:04)
[2019-09-26] MEDS: APIXABAN 2.5 MG TAB (ELIQUIS) PO SCH ×2 (09:00→21:03)
[2019-09-26] MEDS: LEVEMIR (INSULIN DETEMIR) 1 UNITS/0.01ML SC SCH ×2 (09:00→21:01)
--- NOTE | 2019-09-26 09:23 | REP ---
CT brain without contrast: History: Altered mental status. Recent CVA. Comparison head CT study September 22, 2019. Comparison MRI imaging September 21, 2019. CT findings: Preliminary digital crawler dragline operator radiograph is unremarkable. Bone window settings demonstrate an intact calvarium. Vascular calcifications again noted. Visualized paranasal sinuses are clear. There is generalized volume loss as before. Low density is seen in the left frontoparietal region and in the periventricular white matter of the left frontal lobe consistent with recent areas of infarction on MRI study from September 21, 2019. There is no evidence of intracranial hemorrhage. No new infarct is appreciated. No mass, extra-axial fluid collection, or midline shift. Impression: Low density representing evolving infarct changes left periventricular white matter of the frontal lobe and left frontoparietal region. These are unchanged from September 22, 2019. No new infarct or hemorrhage is appreciated. Generalized volume loss and vascular calcification again noted. Electronically Signed by Nitish Reynoso MD 09/26/2019 10:34 A
[2019-09-26 10:56] LABS: HEMATOCRIT 35.2 % (42.0-52.0); HEMOGLOBIN 10.3 g/dl (13.5-17.5); MEAN CORPUSCULAR HEMOGLOBIN 29.6 pg (27.0-33.0); MEAN CORPUSCULAR HGB CONC 29.3 g/dl (32.0-36.5); MEAN CORPUSCULAR VOLUME 101.1 fl (80.0-96.0); PLATELET COUNT, AUTOMATED 263 10^3/uL (150-450); RED BLOOD COUNT 3.48 10^6/uL (4.30-6.10); WHITE BLOOD COUNT 14.1 10^3/uL (4.0-10.0)
[2019-09-26] MEDS ORDERED: HEPARIN 1,000 UNITS/ML 10ML VIAL (FOR RADIOLOGY& DIALYSIS ONLY) IV ONE (11:00)
[2019-09-26] MEDS ORDERED: HEPARIN 1,000 UNITS/ML 10ML VIAL (FOR RADIOLOGY& DIALYSIS ONLY) XX ONE (11:00)
[2019-09-26 11:27] LABS: ALBUMIN 2.2 GM/DL (3.2-5.2); BILIRUBIN,TOTAL 0.3 MG/DL (0.2-1.0); CALCIUM LEVEL 8.8 MG/DL (8.8-10.2); CREATININE FOR GFR 3.93 MG/DL (0.70-1.30); GLOMERULAR FILTRATION RATE 16.3 (>49); POTASSIUM SERUM 3.8 MEQ/L (3.5-5.1); TOTAL PROTEIN 6.5 GM/DL (6.4-8.2)
[2019-09-26 11:52] VITALS: BP 158/87
--- NOTE | 2019-09-26 14:33 | REP ---
MRI BRAIN WITHOUT CONTRAST: HISTORY: Rule out new infarction. Comparison head CT study, September 26 and September 22, 2019. Comparison MRI study, September 21, 2019. TECHNIQUE: Axial and sagittal imaging planes are utilized for T1 and T2-weighted scans. Sequences include spin-echo, fast spin echo, FLAIR, and diffusion weighted sequences. MRI FINDINGS: No bony calvarial lesion is seen. Craniocervical junction and upper cervical cord are normal in appearance. There is no MR evidence of significant paranasal sinus disease. No intraorbital abnormality is seen. There is generalized volume loss. There are changes consistent with subacute infarction involving the left frontal lobe periventricular white matter and left parietotemporal region. There is T1 gyral hyperintensity pattern consistent with laminar necrosis, and there is T2-hyperintensity in these distributions. No new infarct pattern is appreciated. No new hemorrhage is seen. No extra-axial fluid collection or midline shift is seen. IMPRESSION: Subacute left hemispheric infarcts as previously noted. No new infarct or other new acute intracranial abnormality. Electronically Signed by Nitish Reynoso MD 09/26/2019 05:03 P
[2019-09-26 16:20] VITALS: BP 138/78
--- NOTE | 2019-09-26 18:02 | IPN ---
DATE: 09/26/2019 Mr. Dunlap is seen this morning on his bedside. He just returned from radiology after having CT scan of his head. Apparently, he developed altered mentation last evening, and a CT scan of head was ordered this morning because he could not move his right leg. He was admitted to [facility] for acute rehabilitation following a hemorrhagic infarct. We were able to wake him up after much effort; however, he remains confused and could not answer some questions appropriately, though he was able to follow commands. He could not lift his right leg off the stretcher. PHYSICAL EXAMINATION: Temperature 98.2 degrees Fahrenheit, heart rate 62 per minute, respiratory rate 18 per minute, blood pressure 158/87 mm of mercury, and oxygen saturation 96% on room air. Head is atraumatic. Neck is supple and without jugular venous distention (JVD) or thyroid enlargement. Left upper chest hemodialysis catheter is in place. Heart sounds are regular and lungs clear to auscultation with poor inspiratory effort. Abdomen soft and nontender, and bowel sounds are normal. Extremities without any cyanosis or clubbing. Neurologically, the patient is lethargic but arousable. He was able to follow commands but not able to tell me where he was. He remains confused and disoriented. He could not lift right leg off the stretcher. Today's labs show WBC count 14.1, hemoglobin 10.3, and hematocrit 35.2. Platelets 263. Sodium 140, potassium 3.8, CO2 of 28, BUN 26, and creatinine 3.93. Total protein 6.5 and albumin 2.2. PROBLEMS: 1. Altered mentation. Etiology remains uncertain. He just had a CT scan of head done, which did not show any acute infarct or bleed. He does have a prior stroke. He is not able to move his right leg, and we will may have to repeat his CT scan again in another 24-48 hours. 2. End-stage renal disease. The patient has been dialysis dependent and will be dialyzed this afternoon. His volume status is well compensated with minimal oral intake over last 24 hours. We will maintain his volume today and not remove any fluid. 3. Anemia. His anemia is stable and does not need any intervention. 4. Leukocytosis. Etiology remains uncertain. He does not seem to have any source of infection. I will defer to the hospitalist service for consideration for antibiotics.
[2019-09-26 19:35] VITALS: BP 127/68
[2019-09-27 05:35] VITALS: BP 162/74
[2019-09-27] MEDS: HumaLOG INSULIN (NovoLOG) PER UNIT SC SCH ×4 (07:30→21:00)
[2019-09-27] MEDS: LEVEMIR (INSULIN DETEMIR) 1 UNITS/0.01ML SC SCH ×2 (09:10→22:03)
[2019-09-27] MEDS: ACETAMINOPHEN 500 MG TAB PO SCH ×3 (09:11→22:03)
[2019-09-27] MEDS: CALCIUM ACETATE 667 MG GELCAP PO SCH ×3 (09:11→17:40)
[2019-09-27] MEDS: CitaloPRAM (CeleXA) 20 MG TAB PO SCH (09:11)
[2019-09-27] MEDS: ATORVASTATIN 20 MG TAB PO SCH (09:12)
[2019-09-27] MEDS: FOLIC ACID 1 MG TAB PO SCH (09:12)
[2019-09-27] MEDS: LACTOBACILLUS ACIDOPHILUS CAP (BACID) PO SCH ×3 (09:12→22:02)
[2019-09-27] MEDS: PANTOPRAZOLE 40MG TAB (PROTONIX) PO SCH ×2 (09:12→22:02)
[2019-09-27] MEDS: APIXABAN 2.5 MG TAB (ELIQUIS) PO SCH ×2 (09:12→22:02)
[2019-09-27] MEDS: METOPROLOL TART 25 MG TABLET PO SCH ×2 (09:12→22:04)
[2019-09-27] MEDS: ANUSOL HC 25MG SUPP PR SCH ×2 (09:12→22:02)
[2019-09-27] MEDS: TETRAHYDROZOLINE OPHTH 0.05% 15 ML BTL OU SCH ×3 (09:15→22:04)
[2019-09-27 14:00] VITALS: BP 122/72
[2019-09-27 20:00] VITALS: BP 148/69
--- NOTE | 2019-09-27 20:51 | IPN ---
DATE: 09/27/2019 Mr. Dunlap is seen this morning on his bedside. He is much more alert and able to have a conversation today. Yesterday, he could not even tell his name or place. He did have dialysis later in the afternoon which he tolerated well. He had a repeat CT scan of his head which did not show any acute infarct. The patient denies any nausea, vomiting, dyspnea or chest pain today. PHYSICAL EXAMINATION: Temperature 97.9 degrees Fahrenheit, heart rate 80 per minute and respiratory rate 18 per minute. Blood pressure 162/74 mmHg and oxygen saturation 98% on room air. Head is atraumatic. His neck is supple and without JVD or thyroid enlargement. Heart sounds are regular and lungs sound clear to auscultation. Abdomen is soft and nontender and bowel sounds are normal. Extremities without any cyanosis or clubbing. He has a PermCath on his left upper chest for dialysis. LABORATORY DATA: From yesterday show WBC count 14.1, hemoglobin 10.3 and hematocrit 35.2. Sodium was 140 and potassium 3.8. BUN was only 26 and creatinine 3.93. No labs are done today. PROBLEMS: 1. End-stage renal disease. The patient was dialyzed yesterday and next dialysis will be scheduled for Saturday. No emergent need for dialysis today. 2. Hypertension. Blood pressure seems reasonably well-controlled and we will continue with current antihypertensive meds. No changes are being made today. 3. Anemia. His anemia is mild and stable and we will continue to monitor and treat it with dialysis. No changes are being made today. 4. Altered mentation. The patient had significant lethargy and altered mentation yesterday. CT scan of head was repeated, which did not show any acute infarct. Today, he seems to be improved. I do not know his baseline, but definitely he is improved compared to yesterday. He remains on acute rehab due to prior stroke.
[2019-09-28 06:00] VITALS: BP 133/63
[2019-09-28] MEDS: HumaLOG INSULIN (NovoLOG) PER UNIT SC SCH ×4 (07:50→21:00)
[2019-09-28] MEDS: ATORVASTATIN 20 MG TAB PO SCH (07:51)
[2019-09-28] MEDS: LEVEMIR (INSULIN DETEMIR) 1 UNITS/0.01ML SC SCH ×2 (07:51→21:33)
[2019-09-28] MEDS: CALCIUM ACETATE 667 MG GELCAP PO SCH ×3 (07:51→17:29)
[2019-09-28] MEDS: CitaloPRAM (CeleXA) 20 MG TAB PO SCH (07:51)
[2019-09-28] MEDS: APIXABAN 2.5 MG TAB (ELIQUIS) PO SCH ×2 (07:51→21:33)
[2019-09-28] MEDS: LACTOBACILLUS ACIDOPHILUS CAP (BACID) PO SCH ×3 (07:51→21:34)
[2019-09-28] MEDS: METOPROLOL TART 25 MG TABLET PO SCH ×2 (07:51→21:34)
[2019-09-28] MEDS: FOLIC ACID 1 MG TAB PO SCH (07:52)
[2019-09-28] MEDS: PANTOPRAZOLE 40MG TAB (PROTONIX) PO SCH ×2 (07:52→21:34)
[2019-09-28] MEDS: ACETAMINOPHEN 500 MG TAB PO SCH ×3 (07:52→21:33)
[2019-09-28] MEDS: ANUSOL HC 25MG SUPP PR SCH ×2 (07:52→21:00)
[2019-09-28] MEDS: TETRAHYDROZOLINE OPHTH 0.05% 15 ML BTL OU SCH ×3 (07:52→21:34)
[2019-09-28 14:00] VITALS: BP 142/67
--- NOTE | 2019-09-28 18:54 | IPN ---
DATE: 09/28/2019 Mr. Dunlap is seen this morning in acute rehabilitation unit. He is working with the occupational therapist at present. The patient still has difficulty with his speech and is struggling to find words. He has complained of pain in his rectum but denies any other issues. PHYSICAL EXAMINATION: Temperature 96.9 degrees Fahrenheit, heart rate 82 per minute and respiratory rate 18 per minute. Blood pressure 133/63 mmHg and oxygen saturation 98% on room air. He has a runny nose this morning with watery secretions. Head is atraumatic. Neck is supple and without jugular venous distention (JVD) or thyroid enlargement. Left upper chest Perma-Cath for dialysis is present. Heart sounds regular. Lungs sound clear to auscultation. Abdomen is soft and nontender. Extremities without any cyanosis or clubbing. Neurologically, he is awake, slow to respond and having difficulty with his speech. PROBLEMS: 1. End-stage renal disease. The patient is regularly dialyzed on Saturday, and Saturday schedule. He was last dialyzed on Saturday and we will plan on dialyzing him again tomorrow. His volume status is well-compensated and electrolytes have been stable. 2. Anemia. His anemia has been stable and does not need any urgent intervention. 3. Hypertension. Blood pressure has been well-controlled and no changes are being made today.
[2019-09-28 20:00] VITALS: BP 141/65
[2019-09-29 06:00] VITALS: BP 145/80
[2019-09-29] MEDS: HumaLOG INSULIN (NovoLOG) PER UNIT SC SCH ×4 (07:30→21:00)
[2019-09-29] MEDS: CALCIUM ACETATE 667 MG GELCAP PO SCH ×3 (07:50→17:48)
[2019-09-29] MEDS: ATORVASTATIN 20 MG TAB PO SCH (07:50)
[2019-09-29] MEDS: CitaloPRAM (CeleXA) 20 MG TAB PO SCH (07:50)
[2019-09-29] MEDS: PANTOPRAZOLE 40MG TAB (PROTONIX) PO SCH ×2 (07:50→21:39)
[2019-09-29] MEDS: FOLIC ACID 1 MG TAB PO SCH (07:50)
[2019-09-29] MEDS: METOPROLOL TART 25 MG TABLET PO SCH ×2 (07:50→21:40)
[2019-09-29] MEDS: LACTOBACILLUS ACIDOPHILUS CAP (BACID) PO SCH ×3 (07:50→21:39)
[2019-09-29] MEDS: APIXABAN 2.5 MG TAB (ELIQUIS) PO SCH ×2 (07:50→21:39)
[2019-09-29] MEDS: ANUSOL HC 25MG SUPP PR SCH (07:51)
[2019-09-29] MEDS: ACETAMINOPHEN 500 MG TAB PO SCH ×3 (07:51→21:39)
[2019-09-29] MEDS: LEVEMIR (INSULIN DETEMIR) 1 UNITS/0.01ML SC SCH ×2 (07:51→21:39)
[2019-09-29] MEDS: TETRAHYDROZOLINE OPHTH 0.05% 15 ML BTL OU SCH ×3 (07:52→21:40)
[2019-09-29 08:09] LABS: BASO # 0.1 10^3/uL (0.0-0.2); BASO % 0.9 % (0.0-1.0); EOS # 0.4 10^3/uL (0.0-0.5); EOS % 3.3 % (0.0-3.0); HEMATOCRIT 37.9 % (42.0-52.0); HEMOGLOBIN 10.9 g/dl (13.5-17.5); LYMPH # 1.2 10^3/uL (1.5-5.0); LYMPH % 9.2 % (24.0-44.0); MEAN CORPUSCULAR HEMOGLOBIN 29.2 pg (27.0-33.0); MEAN CORPUSCULAR HGB CONC 28.8 g/dl (32.0-36.5); MEAN CORPUSCULAR VOLUME 101.6 fl (80.0-96.0); MONO # 0.7 10^3/uL (0.0-0.8); NEUTROPHILS # 10.3 10^3/uL (1.5-8.5); NEUTROPHILS % 79.5 % (36.0-66.0); PLATELET COUNT, AUTOMATED 335 10^3/uL (150-450); RED BLOOD COUNT 3.73 10^6/uL (4.30-6.10); WHITE BLOOD COUNT 12.9 10^3/uL (4.0-10.0)
[2019-09-29 08:40] LABS: ALBUMIN 2.3 GM/DL (3.2-5.2); CALCIUM LEVEL 9.2 MG/DL (8.8-10.2); CREATININE FOR GFR 4.12 MG/DL (0.70-1.30); GLOMERULAR FILTRATION RATE 15.4 (>49); PHOSPHORUS LEVEL 1.9 MG/DL (2.5-4.9); POTASSIUM SERUM 4.4 MEQ/L (3.5-5.1)
[2019-09-29] MEDS ORDERED: HEPARIN 1,000 UNITS/ML 10ML VIAL (FOR RADIOLOGY& DIALYSIS ONLY) IV ONE (10:00)
[2019-09-29] MEDS ORDERED: HEPARIN 1,000 UNITS/ML 10ML VIAL (FOR RADIOLOGY& DIALYSIS ONLY) XX ONE (10:00)
--- NOTE | 2019-09-29 14:57 | IPN ---
DATE: 09/29/2019 Mr. Dunlap is undergoing acute rehabilitation. He is receiving maintenance hemodialysis on Saturday, and Saturday schedule. His dialysis is done in the afternoon as he is busy with acute rehab in the morning. He has been making slow progress; however, continues to have some difficulty with his speech. Staff reports that he has made good progress with his physical rehab. He is likely to be discharged to home tomorrow and followup with his primary nephrology team in [place]. PHYSICAL EXAMINATION: Temperature 97.2 degrees Fahrenheit, heart rate 75 per minute and respiratory rate 18 per minute. Blood pressure 145/80 mmHg and oxygen saturation 99% on room air. Head: Atraumatic. Neck: Supple and without jugular venous distention (JVD) or thyroid enlargement. Heart: Sounds regular. Lungs clear to auscultation. Abdomen: Soft and nontender. Bowel sounds normal. Extremities: Without any cyanosis or clubbing. Neurologically, he has some difficulty with speech. He is still weak. Today's labs show WBC count 12.9, hemoglobin 10.9 and hematocrit 37.9. Sodium 141, potassium 4.4, CO2 26, BUN 34 and creatinine 4.12. PROBLEMS: 1. End-stage renal disease. The patient is dialyzed on Saturday, and Saturday schedule. He will be dialyzed this afternoon. We will remove about 1.5 liters of fluid. His electrolytes are within normal range. 2. Anemia. His anemia has improved and we are going to hold his Aranesp dose today. 3. Hypertension. Blood pressure has been reasonably well-controlled and no changes are being made today.
--- NOTE | 2019-09-29 16:32 | IPNPDOC ---
PM&R Progress Note DATE OF SERVICE: Sep 29, 2019 Chief Environmental Commitment Officer Progress Note Subjective: Patient seen in dialysis reporting he feels well today. He reports his rectal pain is better and that he declined the suppository last night. REVIEW OF SYSTEMS: The following is a completed review of systems and has been reviewed. Review of systems otherwise unremarkable. PAIN: Patient self reports no pain EYES: No recent vision changes EARS, NOSE, & THROAT: No throat pain, or dysphagia, or rhinorrhea CARDIOVASCULAR: Denies chest pain or palpitations PULMONARY: Denies shortness of breath GASTROINTESTINAL: +diarrhea (resolved) GENITOURINARY: denies dysuria MUSCULOSKELETAL:RLE>RUE weakness NEUROLOGICAL:+stroke HEMATOLOGICAL:+anemia SKIN: AVF and permacath, left forearm skin tear PSYCHIATRIC: Unremarkable All other review of systems found to be negative. PHYSICAL EXAMINATION: VITAL SIGNS: Please see below. GENERAL: Pleasant and cooperative. No acute distress. HEENT: PERRL. Extraocular movements intact. Clear conjunctiva CARDIOVASCULAR: Regular rate and rhythm. No murmurs, rubs, or gallops LUNGS: Clear to auscultation bilaterally. No wheezes. No rhonchi ABDOMEN: Soft, nontender, nondistended. Positive bowel sounds. Normal active bowel sounds NEUROLOGICAL: Alert and oriented times three. Cranial nerves II through XII gr ossly intact. Sensation grossly intact in all 3 limbs, except decreased to light touch RLE +mild expressive aphasia with word finding difficulty able to follow two-step commands, +clonus right LE, brisk patellar reflex on right EXTREMITIES: 5\\5 strength Left upper extremity, 4+/5 right UE 2/5 right hip flexors, knee extensors, 1/5 ankle DF, EHL, 2/5 PF 5/5 strength in left lower extremity. SKIN: Left IJ permacath, left AVF, no sacral ulcers, left forearm skin tear ASSESSMENT:69-year-old M with past medical history of ESRD on HD who presents status post left GAMA and M2 stroke PLAN: 1.Rehab: PT strenghthen/stretch/maintain ROM bilat LE- multipodus boot in bed, ambulating with RW CG-supervision OT- strengthen/stretch/maintain ROM bilat UE- energy conservation FORESTRY ADVISER- assess for cog defects and treat- c/u to treat 2. Neuro: s/p left GAMA and M2 infarct in setting of Afib- c/u Eliquis 2.5mg BID and metoprolol -repeat MRI 09-21-19 showing "Relatively acute posterior left perisylvian and left frontal centrum semiovale infarcts, probably with areas of petechial he morrhage", discussed findings with [facility] radiologist who reported frontal petechial hemorrhage was not present on MRI 08-25-19, but M2 petechial hemorrhage was, CT scan 09-22-19 showing no acute infarct, discussed case with Dr. Andrew who recommends holding ASA for at least a month -repeat MRI and CT head on 09-26-19 negative for for new stroke, AMS likely due to baclofen and gabapentin which have been held -patient clinically stable and able to participate in therapy 3. Cardiac: grade 2 diastolic CHF with HTN and Afib- c/u metoprolol and Eliquis 2.5 BID and Lipitor, discussed with medicine -ASA on hold at least a month 4. Resp: encourage incentive spirometry 5. Renal: ESRD on HD //Saturday with recent episodes of hypokalemia- renal consulted, recs appreciated 6. 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 GI: persistent diarrhea possible due to bowl ischemia vs reaction to recent chemotherapy-improving -C diff and diarrhea panel negative -c/u immodium prn, Bacid, and metamucil -patient with blood streak in his underwear today, recent FOBT negative, likely due to hemorrhoids or anal fissure, will check Hgb tomorrow-f/u with GI, hemodynamically stable -hx of adenocarcinoma s/p resection and chemo- will need to follow-up with Oncologist -will d/c anusol as patient reporting his rectum feels better 8. Heme: anemia of chronic disease- FOBT negative 8. Endo: pmh DM c/u insulin therapy 9. : monitor PVRs 10. Psych: Celexa for depression 11. Pain: tylneol prn 12. Dispo: 09-30-19 to home with 24-7 supervision, progressing towards goals Allergies Coded Allergies: enalapril (Verified Allergy, Unknown, 09/14/19) Vital Signs Vital Signs Date Time Temp Pulse Resp B/P (MAP) Pulse Ox O2 Delivery O2 Flow Rate FiO2 09/29/19 07:50 75 145/80 09/29/19 06:00 97.2 18 99 Room Air Laboratory Data CBC/BMP Laboratory Tests 09/29/19 07:47 Labs 24H Laboratory Tests 2 09/28/19 16:49: Bedside Glucose (Misc Panel) 106 09/28/19 19:40: Bedside Glucose (Misc Panel) 149H 09/29/19 05:24: Bedside Glucose (Misc Panel) 84 09/29/19 07:47: Immature Granulocyte % (Auto) 2.1, Neutrophils (%) (Auto) 79.5H, Lymphocytes (%) (Auto) 9.2L, Monocytes (%) (Auto) 5.0, Eosinophils (%) (Auto) 3.3H, Basophils (%) (Auto) 0.9, Neutrophils # (Auto) 10.3H, Lymphocytes # (Auto) 1.2L, Monocytes # (Auto) 0.7, Eosinophils # (Auto) 0.4, Basophils # (Auto) 0.1, Nucleated Red Blood Cells % (auto) 0.0, Anion Gap 9, Glomerular Filtration Rate 15.4L, Calcium Level 9.2, Phosphorus Level 1.9L, Albumin 2.3L 09/29/19 11:55: Bedside Glucose (Misc Panel) 132H Current Medications Current Medications Current Medications Medications (Trade) Dose Ordered Sig/Leilani Route PRN Reason Start Time Stop Time Status Last Admin Dose Admin Acetaminophen (Tylenol Tab) 650 mg Q6HP PRN PO PAIN / FEVER 09/18/19 20:00 09/21/19 15:24 DC 09/21/19 08:12 Acetaminophen (Tylenol Tab) 1,000 mg TID PO 09/21/19 16:00 09/29/19 07:51 Apixaban (Eliquis) 2.5 mg BID PO 09/14/19 21:00 09/29/19 07:50 Aspirin (Ecotrin) 81 mg DAILY PO 09/17/19 09:00 09/21/19 20:48 DC 09/21/19 08:09 Atorvastatin Calcium (Lipitor) 20 mg QHS PO 09/17/19 21:00 09/21/19 15:24 DC 09/20/19 20:10 Atorvastatin Calcium (Lipitor) 40 mg DAILY PO 09/15/19 09:00 09/29/19 07:50 Baclofen (Lioresal) 5 mg DAILY PO 09/26/19 09:00 09/25/19 13:27 DC Baclofen (Lioresal) 5 mg TID PO 09/24/19 11:15 09/25/19 10:19 DC 09/25/19 09:07 Baclofen (Lioresal) 5 mg TID PO 09/25/19 14:00 09/25/19 16:56 DC 09/25/19 16:15 Baclofen (Lioresal) 5 mg TID PRN PO PAIN 09/25/19 21:00 09/26/19 11:49 DC Calcium Acetate (Phoslo) 667 mg TID PO 09/14/19 16:00 09/14/19 20:30 DC 09/14/19 17:38 Calcium Acetate (Phoslo) 667 mg WM PO 09/15/19 08:00 09/29/19 12:20 Citalopram Hydrobromide (CeleXA) 20 mg DAILY PO 09/15/19 09:00 09/29/19 07:50 Darbepoetin [place] (Aranesp (Dialysis Use)) 200 mcg HD IV 09/15/19 09:00 Dexamethasone (Decadron) 2 mg BID PO 09/21/19 21:00 09/22/19 09:57 DC 09/22/19 08:45 Dextrose (Dextrose 50%) 25 ml ASDIRECTED PRN IV SEE LABEL COMMENTS 09/14/19 13:45 Ferrous Sulfate (Ferrous Sulfate) 325 mg DAILY PO 09/15/19 09:00 09/15/19 08:54 DC 09/15/19 08:19 Folic Acid (Folic Acid) 1 mg DAILY PO 09/15/19 09:00 09/29/19 07:50 Gabapentin (Neurontin) 100 mg DAILY PO 09/26/19 09:00 09/26/19 11:49 DC Gabapentin (Neurontin) 300 mg DAILY PO 09/25/19 09:00 09/25/19 16:27 DC 09/25/19 16:16 Glucagon (Glucagon) 1 mg ASDIRECTED PRN SC SEE LABEL COMMENTS 09/14/19 13:45 Glucose (Glucose) 16 GM ASDIRECTED PRN PO SEE LABEL COMMENTS 09/14/19 13:45 Home Med (Med Rec Complete!) ASDIRECTED XX 09/14/19 13:15 09/14/19 13:16 DC Hydrocortisone Acetate (Anusol Hc Supp) 25 mg BID SC 09/21/19 09:00 09/29/19 11:27 DC 09/28/19 07:52 Insulin Detemir (Levemir Insulin) 5 units BID SC 09/25/19 09:00 09/28/19 21:33 Insulin Detemir (Levemir Insulin) 10 units BID SC 09/14/19 21:00 09/25/19 10:18 DC 09/23/19 21:21 Insulin Human Lispro (HumaLOG INSULIN) SEE PROTOCOL TABLE AC SC 09/14/19 17:30 09/29/19 12:22 Insulin Human Lispro (HumaLOG INSULIN) SEE PROTOCOL TABLE QHS NM 09/14/19 21:00 Iron (Venofer) 100 mg HD IV 09/24/19 12:00 Iron (Venofer) 100 mg HD IV 09/15/19 09:00 09/24/19 09:01 DC Lactobacillus Acidophilus (Bacid) 1 ea TID PO 09/14/19 16:00 09/29/19 07:50 Loperamide HCl (Imodium) 2 mg ASDIRECTED PRN PO DIARRHEA 09/25/19 16:30 Loperamide HCl (Imodium) 2 mg ASDIRECTED PRN PO DIARRHEA 09/14/19 13:45 09/18/19 15:33 DC 09/14/19 17:41 Loperamide HCl (Imodium) 2 mg TID PO 09/18/19 16:00 09/23/19 15:45 DC 09/22/19 21:13 Metoprolol Tartrate (Lopressor) 25 mg BID PO 09/14/19 21:00 09/29/19 07:50 Miscellaneous (Unresolved Clarification Entry) SEE LABEL COMMENTS DAILY XX 09/21/19 09:00 09/21/19 11:41 DC Miscellaneous (Unresolved Clarification Entry) SEE LABEL COMMENTS DAILY XX 09/27/19 09:00 09/27/19 13:39 DC Pantoprazole Sodium (Protonix) 40 mg BID PO 09/14/19 21:00 09/29/19 07:50 Phenyleph/Shark Oil/Min Oil/Petrol (Preparation H Ointment) DAILYPRN PRN TOP HEMORRHOIDS 09/19/19 10:45 09/21/19 12:17 Psyllium Hydrophilic Mucilloid (Metamucil) 1 pkt BID PO 09/18/19 21:00 09/22/19 15:25 DC Psyllium Hydrophilic Mucilloid (Metamucil) 1 pkt DAILY PO 09/15/19 09:00 09/18/19 15:33 DC 09/18/19 09:12 Sodium Bicarbonate (Sodium Bicarbonate) 1,300 mg TID PO 09/14/19 16:00 09/15/19 08:54 DC 09/15/19 08:18 Tetrahydrozoline HCl (Visine) 1 drop TID OU 09/14/19 16:00 09/29/19 07:52 VIANCA LEMUS MD Sep 29, 2019 16:32
[2019-09-29 20:00] VITALS: BP 137/82
[2019-09-30 06:00] VITALS: BP 140/80
[2019-09-30 07:20] LABS: BASO # 0.1 10^3/uL (0.0-0.2); BASO % 1.2 % (0.0-1.0); EOS # 0.5 10^3/uL (0.0-0.5); EOS % 4.5 % (0.0-3.0); HEMATOCRIT 34.2 % (42.0-52.0); HEMOGLOBIN 10.1 g/dl (13.5-17.5); LYMPH # 1.4 10^3/uL (1.5-5.0); LYMPH % 13.5 % (24.0-44.0); MEAN CORPUSCULAR HEMOGLOBIN 30.1 pg (27.0-33.0); MEAN CORPUSCULAR HGB CONC 29.5 g/dl (32.0-36.5); MEAN CORPUSCULAR VOLUME 101.8 fl (80.0-96.0); MONO # 0.7 10^3/uL (0.0-0.8); MONO % 7.4 % (0.0-5.0); NEUTROPHILS # 7.1 10^3/uL (1.5-8.5); NEUTROPHILS % 70.8 % (36.0-66.0); RED BLOOD COUNT 3.36 10^6/uL (4.30-6.10)
[2019-09-30] MEDS: HumaLOG INSULIN (NovoLOG) PER UNIT SC SCH ×4 (07:30→21:00)
[2019-09-30 07:34] LABS: PLATELET COUNT, AUTOMATED 211 10^3/uL (150-450)
[2019-09-30] MEDS: LACTOBACILLUS ACIDOPHILUS CAP (BACID) PO SCH ×3 (08:35→21:03)
[2019-09-30] MEDS: APIXABAN 2.5 MG TAB (ELIQUIS) PO SCH ×2 (08:35→21:04)
[2019-09-30] MEDS: ATORVASTATIN 20 MG TAB PO SCH (08:36)
[2019-09-30] MEDS: METOPROLOL TART 25 MG TABLET PO SCH ×2 (08:36→21:00)
[2019-09-30] MEDS: FOLIC ACID 1 MG TAB PO SCH (08:36)
[2019-09-30] MEDS: PANTOPRAZOLE 40MG TAB (PROTONIX) PO SCH ×2 (08:36→21:04)
[2019-09-30] MEDS: CALCIUM ACETATE 667 MG GELCAP PO SCH ×3 (08:36→17:23)
[2019-09-30] MEDS: CitaloPRAM (CeleXA) 20 MG TAB PO SCH (08:36)
[2019-09-30] MEDS: ACETAMINOPHEN 500 MG TAB PO SCH ×3 (08:37→21:03)
[2019-09-30] MEDS: LEVEMIR (INSULIN DETEMIR) 1 UNITS/0.01ML SC SCH ×2 (08:37→21:04)
[2019-09-30] MEDS: TETRAHYDROZOLINE OPHTH 0.05% 15 ML BTL OU SCH ×3 (08:38→21:02)
[2019-09-30 14:00] VITALS: BP 115/69
--- NOTE | 2019-09-30 16:28 | CR ---
DATE OF CONSULTATION: 09/30/2019 I saw this patient inpatient. REQUESTING PHYSICIAN: Dr. Mark Whitman REASON FOR CONSULTATION: Rectal bleeding diarrhea. HISTORY OF PRESENT ILLNESS: Mr. Rocael Dunlap is a 69-year-old gentleman with a past medical history significant for colorectal carcinoma metastatic to the liver diagnosed in January 2019 in [place] he had a resection performed. Subsequently had oncology evaluation where a PET scan apparently showed a hypermetabolic focus at the site of the anastomosis. He had a repeat colonoscopy post resection in May 2019 and no recurrence was found. He has suffered with profuse diarrhea with chemotherapy and was recently admitted to [facility] with a stroke. At that time his diarrhea was reevaluated via a colonoscopy which I was told was not a good prep however, no ischemic changes or any significant major abnormalities were found. The patient did have diverticulosis and hemorrhoids as per patient history and this is confirmed with his . Unfortunately I do not have the official records however, the family is unreliable in historical details. The patient was discharged from [facility] into rehab post stroke and while he was here at our rehab facility he was having several loose stools which were at this point controlled with Imodium. Stool testing was negative for Clostridium difficile as per notes. Upon my visit today the patient states that he had a small amount of bright red blood on toilet paper and in the stool and consultation for further evaluation was requested. The patient at this time denies any further loose stools. He says his stools are soft and mushy and are much better controlled with the use of Imodium. He denies any abdominal pain. He denies any nausea, vomiting. PAST MEDICAL HISTORY: Atrial fibrillation: Rectal cancer with metastatic lesions in his liver diagnosed in January 2019, history of anemia. MEDICATIONS: Eliquis, amlodipine, atorvastatin, Celexa, Procrit iron sulfate, folic acid Lomotil and Lopressor. He is also on Protonix. ALLERGIES: Enalapril. SOCIAL HISTORY: Negative for tobacco. Negative for alcohol. REVIEW OF SYSTEMS: Negative for night sweats, fevers or chills. Pulmonary: Negative for hemoptysis, pleuritic-type chest pain. Cardiac: Negative for orthopnea, PND. GI: As per HPI. : Negative for hematuria, dysuria. PHYSICAL EXAMINATION: General: He is awake, alert and oriented times three in no acute distress, comfortably sitting in a chair. His speech is fairly normal stuttering at times was quite coherent. Head, eyes, ears, nose and Throat: Is grossly without abnormality. Neck is supple. No lymphadenopathy, thyromegaly. Chest is clear bilaterally. Heart is regular rate rhythm, S1-S2. No murmurs or gallops. Positive for ectopy. Abdomen is soft and nontender. Good bowel sounds. Incision scar noted. No masses felt. No ascites. Extremities: Is negative for edema. Rectal: Examination shows a normal external perianal area. No masses. No lesions. No abscess. Rectal: Examination reveals no masses and small light brown stool. LABORATORY FINDINGS: Hemoglobin 10.1, hematocrit 34.2, MCV 101.8, platelet count is 211, BUN 34, creatinine 4.12, albumin 2.3. Stool Hemoccult testing on 09/17/2019 as heme negative. IMPRESSION: 1. Rectal bleeding most likely related to internal hemorrhoids related to diarrheal syndrome. 2. Diarrhea - this has markedly improved on as needed use of Imodium DISCUSSION: 1. His rectal bleeding is likely related to internal hemorrhoids that have been stirred up by frequent loose stools. I would not at this time recommend a repeat colonoscopy as he has had at least three if not four colonoscopies since his diagnosis with colon cancer in January 2019. I doubt that any rectal lesions or any other abnormalities were missed on any of these scopes that we do not already know about. The patient at this time has no further diarrhea although his stools are still mushy and soft. He has no further bleeding and I feel comfortable at this point to simply treat him with a steroid suppository on an as needed basis and discharge him home from my standpoint. He should probably follow up with his local [employer] [facility] as an outpatient for further evaluation and followup if he develops any recurrent diarrheal symptoms.
--- NOTE | 2019-09-30 19:19 | IPN ---
DATE: 09/30/2019 Mr. Dunlap is seen this morning on his bedside. He was scheduled for discharge today. However, it has been cancelled due to rectal bleeding and rectal pain. He was dialyzed yesterday which he tolerated well. The patient is feeling better today and denies any nausea or vomiting. He has no dyspnea, chest pain, fever or chills. PHYSICAL EXAMINATION: Temperature 97.6 degrees Fahrenheit, heart rate 72 per minute and respiratory rate 18 per minute. Blood pressure 140/80 mmHg and oxygen saturation 98% on room air. Head is atraumatic. Neck is supple and without jugular venous distention (JVD) or thyroid enlargement. Heart sounds are regular. Lungs sound clear to auscultation. Abdomen is soft and nontender and bowel sounds are normal. Extremities without any cyanosis or clubbing. Left upper chest Perma-Cath is without any signs of infection or bleeding. LABORATORY DATA: Today's laboratories show WBC count 10.0, hemoglobin 10.1 and hematocrit 34.9. Yesterday, his hemoglobin was 10.9 and hematocrit 37. Sodium is 141. PROBLEMS: 1. End-stage renal disease. The patient was dialyzed yesterday and we will schedule his next dialysis tomorrow. At present, there is no emergent need for dialysis today. 2. Anemia. He did have slight worsening of anemia and hemoglobin dropped from 10.9 down to 10.1 today. He had rectal bleeding and will need further evaluation. We will recheck his complete blood count (CBC) tomorrow morning and we will consider giving him Aranesp during dialysis tomorrow. 3. Hypertension. Blood pressure is well-controlled and no changes in antihypertensives are indicated. 4. Altered mentation. His mentation has improved back to baseline.
[2019-09-30 20:20] VITALS: BP 108/65
[2019-10-01 06:00] VITALS: BP 141/77
[2019-10-01 07:22] LABS: BASO # 0.1 10^3/uL (0.0-0.2); BASO % 0.9 % (0.0-1.0); EOS # 0.4 10^3/uL (0.0-0.5); EOS % 3.6 % (0.0-3.0); HEMATOCRIT 33.1 % (42.0-52.0); HEMOGLOBIN 9.5 g/dl (13.5-17.5); LYMPH # 1.2 10^3/uL (1.5-5.0); LYMPH % 10.8 % (24.0-44.0); MEAN CORPUSCULAR HEMOGLOBIN 29.3 pg (27.0-33.0); MEAN CORPUSCULAR HGB CONC 28.7 g/dl (32.0-36.5); MEAN CORPUSCULAR VOLUME 102.2 fl (80.0-96.0); MONO # 0.7 10^3/uL (0.0-0.8); NEUTROPHILS # 8.4 10^3/uL (1.5-8.5); NEUTROPHILS % 76.8 % (36.0-66.0); PLATELET COUNT, AUTOMATED 221 10^3/uL (150-450); RED BLOOD COUNT 3.24 10^6/uL (4.30-6.10); WHITE BLOOD COUNT 10.9 10^3/uL (4.0-10.0)
[2019-10-01 07:48] LABS: CALCIUM LEVEL 8.2 MG/DL (8.8-10.2); CREATININE FOR GFR 3.69 MG/DL (0.70-1.30); GLOMERULAR FILTRATION RATE 17.5 (>49); PHOSPHORUS LEVEL 1.9 MG/DL (2.5-4.9); POTASSIUM SERUM 3.5 MEQ/L (3.5-5.1)
[2019-10-01] MEDS: LEVEMIR (INSULIN DETEMIR) 1 UNITS/0.01ML SC SCH ×2 (08:10→21:22)
[2019-10-01] MEDS: FOLIC ACID 1 MG TAB PO SCH (08:10)
[2019-10-01] MEDS: LACTOBACILLUS ACIDOPHILUS CAP (BACID) PO SCH ×3 (08:10→21:20)
[2019-10-01] MEDS: CitaloPRAM (CeleXA) 20 MG TAB PO SCH (08:10)
[2019-10-01] MEDS: CALCIUM ACETATE 667 MG GELCAP PO SCH ×3 (08:10→17:38)
[2019-10-01] MEDS: METOPROLOL TART 25 MG TABLET PO SCH ×2 (08:11→21:20)
[2019-10-01] MEDS: PANTOPRAZOLE 40MG TAB (PROTONIX) PO SCH ×2 (08:11→21:20)
[2019-10-01] MEDS: ACETAMINOPHEN 500 MG TAB PO SCH ×3 (08:11→21:22)
[2019-10-01] MEDS: APIXABAN 2.5 MG TAB (ELIQUIS) PO SCH ×2 (08:11→21:20)
[2019-10-01] MEDS: ATORVASTATIN 20 MG TAB PO SCH (08:11)
[2019-10-01] MEDS: HumaLOG INSULIN (NovoLOG) PER UNIT SC SCH ×4 (08:15→21:00)
[2019-10-01] MEDS: TETRAHYDROZOLINE OPHTH 0.05% 15 ML BTL OU SCH ×3 (08:18→21:00)
[2019-10-01] MEDS ORDERED: ACETAMINOPHEN TAB 650MG DOSE (2X325MG) PO ONE (12:00)
[2019-10-01] MEDS ORDERED: FUROSEMIDE 20 MG/2 ML VIAL (J1940) IV ONE (12:00)
[2019-10-01] MEDS ORDERED: diphenhydrAMINE 25 MG CAP PO ONE (12:00)
[2019-10-01] MEDS ORDERED: HEPARIN 1,000 UNITS/ML 10ML VIAL (FOR RADIOLOGY& DIALYSIS ONLY) XX ONE (13:30)
[2019-10-01] MEDS ORDERED: HEPARIN 1,000 UNITS/ML 10ML VIAL (FOR RADIOLOGY& DIALYSIS ONLY) IV ONE (13:30)
[2019-10-01 14:30] VITALS: BP 123/72
[2019-10-01 14:45] VITALS: BP 127/75
--- NOTE | 2019-10-01 14:48 | IPNPDOC ---
PM&R Progress Note DATE OF SERVICE: Sep 30, 2019 [employer] Progress Note Subjective: Patient reporting he had more rectal bleeding this morning. He denies dizziness or chest pain. His rectal pain is better. REVIEW OF SYSTEMS: The following is a completed review of systems and has been reviewed. Review of systems otherwise unremarkable. PAIN: Patient self reports no pain EYES: No recent vision changes EARS, NOSE, & THROAT: No throat pain, or dysphagia, or rhinorrhea CARDIOVASCULAR: Denies chest pain or palpitations PULMONARY: Denies shortness of breath GASTROINTESTINAL: +diarrhea (resolved), rectal bleeding GENITOURINARY: denies dysuria MUSCULOSKELETAL:RLE>RUE weakness NEUROLOGICAL:+stroke HEMATOLOGICAL:+anemia SKIN: AVF and permacath, left forearm skin tear PSYCHIATRIC: Unremarkable All other review of systems found to be negative. PHYSICAL EXAMINATION: VITAL SIGNS: Please see below. GENERAL: Pleasant and cooperative. No acute distress. HEENT: PERRL. Extraocular movements intact. Clear conjunctiva CARDIOVASCULAR: Regular rate and rhythm. No murmurs, rubs, or gallops LUNGS: Clear to auscultation bilaterally. No wheezes. No rhonchi ABDOMEN: Soft, nontender, nondistended. Positive bowel sounds. Normal active bowel sounds NEUROLOGICAL: Alert and oriented times three. Cranial nerves II through XII grossly intact. Sensation grossly intact in all 3 limbs, except decreased to light touch RLE +mild expressive aphasia with word finding difficulty able to follow two-step commands, +clonus right LE, brisk patellar reflex on right EXTREMITIES: 5\\5 strength Left upper extremity, 4+/5 right UE 2/5 right hip flexors, knee extensors, 1/5 ankle DF, EHL, 2/5 PF 5/5 strength in left lower extremity. 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 Neuro: s/p left GAMA and M2 infarct in setting of Afib- c/u Eliquis 2.5mg BID and metoprolol -repeat MRI 09-21-19 showing "Relatively acute posterior left perisylvian and left frontal centrum semiovale infarcts, probably with areas of petechial hemorrhage", discussed findings with [facility] radiologist who reported frontal petechial hemorrhage was not present on MRI 08-25-19, but M2 petechial hemorrhage was, CT scan 09-22-19 showing no acute infarct, discussed case with Dr. Andrew who recommends holding ASA for at least a month -repeat MRI and CT head on 09-26-19 negative for for new stroke, AMS likely due to baclofen and gabapentin which have been held -patient clinically stable and able to participate in therapy 3. Cardiac: grade 2 diastolic CHF with HTN and Afib- c/u metoprolol and Eliquis 2.5 BID and Lipitor, discussed with medicine -ASA on hold at least a month 4. Resp: encourage incentive spirometry 5. Renal: ESRD on HD //Saturday with recent episodes of hypokalemia- renal consulted, recs appreciated 6. 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 GI: persistent diarrhea possible due to bowl ischemia vs reaction to recent chemotherapy-improving -C diff and diarrhea panel negative -c/u immodium prn, Bacid, and metamucil -patient with blood streaks in his underwear x 2 days with drop in Hgb from 10.9 to 10.1, patient hemodynamically stable, rectal exam negative for active bleeding -GI consulted, recs appreciated, no colonoscopy warranted at this point, I have made f/u with his own GI doctor on Saturday10-05-19, will c/u to monitor for act arnel bleeding and drop in Hgb -recent FOBT negative -hx of adenocarcinoma s/p resection and chemo- will need to follow-up with Oncologist -will d/c anusol as patient reporting his rectum feels better 8. Heme: anemia of chronic disease- FOBT negative -patient with 2 days of blood per rectum with BMs, Hg slightly dropping, c/u iron supplement, will consider transfusion if does not resolve 8. Endo: pmh DM c/u insulin therapy 9. : monitor PVRs 10. Psych: Celexa for depression 11. Pain: tylneol prn 12. Dispo: 10-02-19 to home with 24-7 supervision, progressing towards goals Allergies Coded Allergies: enalapril (Verified Allergy, Unknown, 09/14/19) Vital Signs Vital Signs Date Time Temp Pulse Resp B/P (MAP) Pulse Ox O2 Delivery O2 Flow Rate FiO2 10/01/19 13:33 20 Room Air 10/01/19 08:11 86 141/77 10/01/19 06:00 97.6 98 Laboratory Data CBC/BMP Laboratory Tests 10/01/19 06:58 Labs 24H Laboratory Tests 2 09/30/19 16:33: Bedside Glucose (Misc Panel) 84 09/30/19 20:32: Bedside Glucose (Misc Panel) 222H 10/01/19 05:54: Bedside Glucose (Misc Panel) 103 10/01/19 06:58: Immature Granulocyte % (Auto) 1.9, Neutrophils (%) (Auto) 76.8H, Lymphocytes (%) (Auto) 10.8L, Monocytes (%) (Auto) 6.0H, Eosinophils (%) (Auto) 3.6H, Basophils (%) (Auto) 0.9, Neutrophils # (Auto) 8.4, Lymphocytes # (Auto) 1.2L, Monocytes # (Auto) 0.7, Eosinophils # (Auto) 0.4, Basophils # (Auto) 0.1, Nucleated Red Blood Cells % (auto) 0.0, Anion Gap 6L, Glomerular Filtration Rate 17.5L, C alcium Level 8.2L, Phosphorus Level 1.9L, Albumin 2.0L 10/01/19 12:16: Bedside Glucose (Misc Panel) 124H Current Medications Current Medications Current Medications Medications (Trade) Dose Ordered Sig/Leilani Route PRN Reason Start Time Stop Time Status Last Admin Dose Admin Acetaminophen (Tylenol Tab) 650 mg Q6HP PRN PO PAIN / FEVER 09/18/19 20:00 09/21/19 15:24 DC 09/21/19 08:12 Acetaminophen (Tylenol Tab) 1,000 mg TID PO 09/21/19 16:00 10/01/19 08:11 Apixaban (Eliquis) 2.5 mg BID PO 09/14/19 21:00 10/01/19 08:11 Aspirin (Ecotrin) 81 mg DAILY PO 09/17/19 09:00 09/21/19 20:48 DC 09/21/19 08:09 Atorvastatin Calcium (Lipitor) 20 mg QHS PO 09/17/19 21:00 09/21/19 15:24 DC 09/20/19 20:10 Atorvastatin Calcium (Lipitor) 40 mg DAILY PO 09/15/19 09:00 10/01/19 08:11 Baclofen (Lioresal) 5 mg DAILY PO 09/26/19 09:00 09/25/19 13:27 DC Baclofen (Lioresal) 5 mg TID PO 09/24/19 11:15 09/25/19 10:19 DC 09/25/19 09:07 Baclofen (Lioresal) 5 mg TID PO 09/25/19 14:00 09/25/19 16:56 DC 09/25/19 16:15 Baclofen (Lioresal) 5 mg TID PRN PO PAIN 09/25/19 21:00 09/26/19 11:49 DC Calcium Acetate (Phoslo) 667 mg TID PO 09/14/19 16:00 09/14/19 20:30 DC 09/14/19 17:38 Calcium Acetate (Phoslo) 667 mg WM PO 09/15/19 08:00 10/01/19 12:34 Citalopram Hydrobromide (CeleXA) 20 mg DAILY PO 09/15/19 09:00 10/01/19 08:10 Darbepoetin Tyrone (Aranesp (Dialysis Use)) 200 mcg HD IV 09/15/19 09:00 Dexamethasone (Decadron) 2 mg BID PO 09/21/19 21:00 09/22/19 09:57 DC 09/22/19 08:45 Dextrose (Dextrose 50%) 25 ml ASDIRECTED PRN IV SEE LABEL COMMENTS 09/14/19 13:45 Ferrous Sulfate (Ferrous Sulfate) 325 mg DAILY PO 09/15/19 09:00 09/15/19 08:54 DC 09/15/19 08:19 Folic Acid (Folic Acid) 1 mg DAILY PO 09/15/19 09:00 10/01/19 08:10 Gabapentin (Neurontin) 100 mg DAILY PO 09/26/19 09:00 09/26/19 11:49 DC Gabapentin (Neurontin) 300 mg DAILY PO 09/25/19 09:00 09/25/19 16:27 DC 09/25/19 16:16 Glucagon (Glucagon) 1 mg ASDIRECTED PRN SC SEE LABEL COMMENTS 09/14/19 13:45 Glucose (Glucose) 16 GM ASDIRECTED PRN PO SEE LABEL COMMENTS 09/14/19 13:45 Home Med (Med Rec Complete!) ASDIRECTED XX 09/14/19 13:15 09/14/19 13:16 DC Hydrocortisone Acetate (Anusol Hc Supp) 25 mg BID [place] 09/21/19 09:00 09/29/19 11:27 DC 09/28/19 07:52 Insulin Detemir (Levemir Insulin) 5 units BID SC 09/25/19 09:00 10/01/19 08:10 Insulin Detemir (Levemir Insulin) 10 units BID SC 09/14/19 21:00 09/25/19 10:18 DC 09/23/19 21:21 Insulin Human Lispro (HumaLOG INSULIN) SEE PROTOCOL TABLE AC SC 09/14/19 17:30 10/01/19 12:33 Insulin Human Lispro (HumaLOG INSULIN) SEE PROTOCOL TABLE QHS [place] 09/14/19 21:00 Iron (Venofer) 100 mg HD IV 09/24/19 12:00 Iron (Venofer) 100 mg HD IV 09/15/19 09:00 09/24/19 09:01 DC Lactobacillus Acidophilus (Bacid) 1 ea TID PO 09/14/19 16:00 10/01/19 08:10 Loperamide HCl (Imodium) 2 mg ASDIRECTED PRN PO DIARRHEA 09/25/19 16:30 Loperamide HCl (Imodium) 2 mg ASDIRECTED PRN PO DIARRHEA 09/14/19 13:45 09/18/19 15:33 DC 09/14/19 17:41 Loperamide HCl (Imodium) 2 mg TID PO 09/18/19 16:00 09/23/19 15:45 DC 09/22/19 21:13 Metoprolol Tartrate (Lopressor) 25 mg BID PO 09/14/19 21:00 10/01/19 08:11 Miscellaneous (Unresolved Clarification Entry) SEE LABEL COMMENTS DAILY XX 09/21/19 09:00 09/21/19 11:41 DC Miscellaneous (Unresolved Clarification Entry) SEE LABEL COMMENTS DAILY XX 09/27/19 09:00 09/27/19 13:39 DC Pantoprazole Sodium (Protonix) 40 mg BID PO 09/14/19 21:00 10/01/19 08:11 Phenyleph/Shark Oil/Min Oil/Petrol (Preparation H Ointment) DAILYPRN PRN TOP HEMORRHOIDS 09/19/19 10:45 09/21/19 12:17 Psyllium Hydrophilic Mucilloid (Metamucil) 1 pkt BID PO 09/18/19 21:00 09/22/19 15:25 DC Psyllium Hydrophilic Mucilloid (Metamucil) 1 pkt DAILY PO 09/15/19 09:00 09/18/19 15:33 DC 09/18/19 09:12 Sodium Bicarbonate (Sodium Bicarbonate) 1,300 mg TID PO 09/14/19 16:00 09/15/19 08:54 DC 09/15/19 08:18 Tetrahydrozoline HCl (Visine) 1 drop TID OU 09/14/19 16:00 10/01/19 08:18 VIANCA LEMUS MD Oct 01, 2019 14:48
--- NOTE | 2019-10-01 14:54 | IPNPDOC ---
PM&R Progress Note DATE OF SERVICE: Oct 01, 2019 [employer] Progress Note Subjective: Patient reporting he had more rectal bleeding this morning following a bowel movement. He feels well and wants to go home as soon as possible. He agreed to receive a unit of blood. REVIEW OF SYSTEMS: The following is a completed review of systems and has been reviewed. Review of systems otherwise unremarkable. PAIN: Patient self reports no pain EYES: No recent vision changes EARS, NOSE, & THROAT: No throat pain, or dysphagia, or rhinorrhea CARDIOVASCULAR: Denies chest pain or palpitations PULMONARY: Denies shortness of breath GASTROINTESTINAL: +diarrhea (resolved), rectal bleeding GENITOURINARY: denies dysuria MUSCULOSKELETAL:RLE>RUE weakness NEUROLOGICAL:+stroke HEMATOLOGICAL:+anemia SKIN: AVF and permacath, left forearm skin tear PSYCHIATRIC: Unremarkable All other review of systems found to be negative. PHYSICAL EXAMINATION: VITAL SIGNS: Please see below. GENERAL: Pleasant and cooperative. No acute distress. HEENT: PERRL. Extraocular movements intact. Clear conjunctiva CARDIOVASCULAR: Regular rate and rhythm. No murmurs, rubs, or gallops LUNGS: Clear to auscultation bilaterally. No wheezes. No rhonchi ABDOMEN: Soft, nontender, nondistended. Positive bowel sounds. Normal active bowel sounds NEUROLOGICAL: Alert and oriented times three. Cranial nerves II through XII grossly intact. Sensation grossly intact in all 3 limbs, except decreased to light touch RLE +mild expressive aphasia with word finding difficulty able to follow two-step commands, +clonus right LE, brisk patellar reflex on right EXTREMITIES: 5\\5 strength Left upper extremity, 4+/5 right UE 2/5 right hip flexors, knee extensors, 1/5 ankle DF, EHL, 2/5 PF 5/5 strength in left lower extremity. 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 Neuro: s/p left GAMA and M2 infarct in setting of Afib- c/u Eliquis 2.5mg BID and metoprolol -repeat MRI 09-21-19 showing "Relatively acute posterior left perisylvian and left frontal centrum semiovale infarcts, probably with areas of petechial hemorrhage", discussed findings with [facility] radiologist who reported frontal petechial hemorrhage was not present on MRI 08-25-19, but M2 petechial hemorrhage was, CT scan 09-22-19 showing no acute infarct, discussed case with Dr. Andrew who recommends holding ASA for at least a month -repeat MRI and CT head on 09-26-19 negative for for new stroke, AMS likely due to baclofen and gabapentin which have been held -patient clinically stable and able to participate in therapy 3. Cardiac: grade 2 diastolic CHF with HTN and Afib- c/u metoprolol and Eliquis 2.5 BID and Lipitor, discussed with medicine -ASA on hold at least a month 4. Resp: encourage incentive spirometry 5. Renal: ESRD on HD //Saturday with recent episodes of hypokalemia- renal consulted, recs appreciated 6. 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 GI: persistent diarrhea possible due to bowl ischemia vs reaction to recent chemotherapy-improving -C diff and diarrhea panel negative -c/u immodium prn, Bacid, and metamucil -patient with blood streaks in his underwear x 3 days with drop in Hgb from 10.9 to 10.1 to 9.5, patient remains hemodynamically stable, rectal exam negative for active bleeding again today, will transfuse one unit rbcs today, discussed case with Hospitalist Dr. Ware who recs to keep patient on low dose Eliquis given his recent strokes in setting of Afib and recommend close medical f/u on d/c -GI consulted, recs appreciated, no colonoscopy warranted at this point, I have made f/u with his own GI doctor on Saturday10-05-19, will c/u to monitor for active bleeding and drop in Hgb -recent FOBT negative -hx of adenocarcinoma s/p resection and chemo- will need to follow-up with Oncologist -d/c'dipak dacosta as patient reporting his rectum feels better 8. Heme: anemia of chronic disease- FOBT negative -patient with 3 days of blood per rectum with BMs, Hg slightly dropping, c/u iron supplement, discussed case with on-call Hospitalist, Dr. Ware who recommends transfusion and discharge to home with close follow-up, patient remains hemodynamically stable 8. Endo: pmh DM c/u insulin therapy 9. : monitor PVRs 10. Psych: Celexa for depression 11. Pain: tylneol prn 12. Dispo: 10-02-19 to home with 24-7 supervision, progressing towards goals Allergies Coded Allergies: enalapril (Verified Allergy, Unknown, 09/14/19) Vital Signs Vital Signs Date Time Temp Pulse Resp B/P (MAP) Pulse Ox O2 Delivery O2 Flow Rate FiO2 10/01/19 13:33 20 Room Air 10/01/19 08:11 86 141/77 10/01/19 06:00 97.6 98 Laboratory Data CBC/BMP Laboratory Tests 10/01/19 06:58 Labs 24H Laboratory Tests 2 09/30/19 16:33: Bedside Glucose (Misc Panel) 84 09/30/19 20:32: Bedside Glucose (Misc Panel) 222H 10/01/19 05:54: Bedside Glucose (Misc Panel) 103 10/01/19 06:58: Immature Granulocyte % (Auto) 1.9, Neutrophils (%) (Auto) 76.8H, Lymphocytes (%) (Auto) 10.8L, Monocytes (%) (Auto) 6.0H, Eosinophils (%) (Auto) 3.6H, Basophils (%) (Auto) 0.9, Neutrophils # (Auto) 8.4, Lymphocytes # (Auto) 1.2L, Monocytes # (Auto) 0.7, Eosinophils # (Auto) 0.4, Basophils # (Auto) 0.1, Nucleated Red Blood Cells % (auto) 0.0, Anion Gap 6L, Glomerular Filtration Rate 17.5L, Calcium Level 8.2L, Phosphorus Level 1.9L, Albumin 2.0L 10/01/19 12:16: Bedside Glucose (Misc Panel) 124H Current Medications Current Medications Current Medications Medications (Trade) Dose Ordered Sig/Leilani Route PRN Reason Start Time Stop Time Status Last Admin Dose Admin Acetaminophen (Tylenol Tab) 650 mg Q6HP PRN PO PAIN / FEVER 09/18/19 20:00 09/21/19 15:24 DC 09/21/19 08:12 Acetaminophen (Tylenol Tab) 1,000 mg TID PO 09/21/19 16:00 10/01/19 08:11 Apixaban (Eliquis) 2.5 mg BID PO 09/14/19 21:00 10/01/19 08:11 Aspirin (Ecotrin) 81 mg DAILY PO 09/17/19 09:00 09/21/19 20:48 DC 09/21/19 08:09 Atorvastatin Calcium (Lipitor) 20 mg QHS PO 09/17/19 21:00 09/21/19 15:24 DC 09/20/19 20:10 Atorvastatin Calcium (Lipitor) 40 mg DAILY PO 09/15/19 09:00 10/01/19 08:11 Baclofen (Lioresal) 5 mg DAILY PO 09/26/19 09:00 09/25/19 13:27 DC Baclofen (Lioresal) 5 mg TID PO 09/24/19 11:15 09/25/19 10:19 DC 09/25/19 09:07 Baclofen (Lioresal) 5 mg TID PO 09/25/19 14:00 09/25/19 16:56 DC 09/25/19 16:15 Baclofen (Lioresal) 5 mg TID PRN PO PAIN 09/25/19 21:00 09/26/19 11:49 DC Calcium Acetate (Phoslo) 667 mg TID PO 09/14/19 16:00 09/14/19 20:30 DC 09/14/19 17:38 Calcium Acetate (Phoslo) 667 mg WM PO 09/15/19 08:00 10/01/19 12:34 Citalopram Hydrobromide (CeleXA) 20 mg DAILY PO 09/15/19 09:00 10/01/19 08:10 Darbepoetin Tyrone (Aranesp (Dialysis Use)) 200 mcg HD IV 09/15/19 09:00 Dexamethasone (Decadron) 2 mg BID PO 09/21/19 21:00 09/22/19 09:57 DC 09/22/19 08:45 Dextrose (Dextrose 50%) 25 ml ASDIRECTED PRN IV SEE LABEL COMMENTS 09/14/19 13:45 Ferrous Sulfate (Ferrous Sulfate) 325 mg DAILY PO 09/15/19 09:00 09/15/19 08:54 DC 09/15/19 08:19 Folic Acid (Folic Acid) 1 mg DAILY PO 09/15/19 09:00 10/01/19 08:10 Gabapentin (Neurontin) 100 mg DAILY PO 09/26/19 09:00 09/26/19 11:49 DC Gabapentin (Neurontin) 300 mg DAILY PO 09/25/19 09:00 09/25/19 16:27 DC 09/25/19 16:16 Glucagon (Glucagon) 1 mg ASDIRECTED PRN SC SEE LABEL COMMENTS 09/14/19 13:45 Glucose (Glucose) 16 GM ASDIRECTED PRN PO SEE LABEL COMMENTS 09/14/19 13:45 Home Med (Med Rec Complete!) ASDIRECTED XX 09/14/19 13:15 09/14/19 13:16 DC Hydrocortisone Acetate (Anusol Hc Supp) 25 mg BID SC 09/21/19 09:00 09/29/19 11:27 DC 09/28/19 07:52 Insulin Detemir (Levemir Insulin) 5 units BID SC 09/25/19 09:00 10/01/19 08:10 Insulin Detemir (Levemir Insulin) 10 units BID SC 09/14/19 21:00 09/25/19 10:18 DC 09/23/19 21:21 Insulin Human Lispro (HumaLOG INSULIN) SEE PROTOCOL TABLE AC SC 09/14/19 17:30 10/01/19 12:33 Insulin Human Lispro (HumaLOG INSULIN) SEE PROTOCOL TABLE QHS SC 09/14/19 21:00 Iron (Venofer) 100 mg HD IV 09/24/19 12:00 Iron (Venofer) 100 mg HD IV 09/15/19 09:00 09/24/19 09:01 DC Lactobacillus Acidophilus (Bacid) 1 ea TID PO 09/14/19 16:00 10/01/19 08:10 Loperamide HCl (Imodium) 2 mg ASDIRECTED PRN PO DIARRHEA 09/25/19 16:30 Loperamide HCl (Imodium) 2 mg ASDIRECTED PRN PO DIARRHEA 09/14/19 13:45 09/18/19 15:33 DC 09/14/19 17:41 Loperamide HCl (Imodium) 2 mg TID PO 09/18/19 16:00 09/23/19 15:45 DC 09/22/19 21:13 Metoprolol Tartrate (Lopressor) 25 mg BID PO 09/14/19 21:00 10/01/19 08:11 Miscellaneous (Unresolved Clarification Entry) SEE LABEL COMMENTS DAILY XX 09/21/19 09:00 09/21/19 11:41 DC Miscellaneous (Unresolved Clarification Entry) SEE LABEL COMMENTS DAILY XX 09/27/19 09:00 09/27/19 13:39 DC Pantoprazole Sodium (Protonix) 40 mg BID PO 09/14/19 21:00 10/01/19 08:11 Phenyleph/Shark Oil/Min Oil/Petrol (Preparation H Ointment) DAILYPRN PRN TOP HEMORRHOIDS 09/19/19 10:45 09/21/19 12:17 Psyllium Hydrophilic Mucilloid (Metamucil) 1 pkt BID PO 09/18/19 21:00 09/22/19 15:25 DC Psyllium Hydrophilic Mucilloid (Metamucil) 1 pkt DAILY PO 09/15/19 09:00 09/18/19 15:33 DC 09/18/19 09:12 Sodium Bicarbonate (Sodium Bicarbonate) 1,300 mg TID PO 09/14/19 16:00 09/15/19 08:54 DC 09/15/19 08:18 Tetrahydrozoline HCl (Visine) 1 drop TID OU 09/14/19 16:00 10/01/19 08:18 VIANCA LEMUS MD Oct 01, 2019 14:54
[2019-10-01 15:00] VITALS: BP 110/68
[2019-10-01 15:30] VITALS: BP 142/92
--- NOTE | 2019-10-01 17:12 | IPN ---
DATE: 10/01/2019 Mr. Dunlap was not discharged yesterday due to rectal bleeding and loose stools. He is scheduled for dialysis this afternoon and is likely to be discharged tomorrow now. He is feeling as usual . He does have some speech difficulty but seems to be improved. Rehabilitation staff reports that he has made significant improvement in his overall physical strength. He was seen by gastrointestinal (GI) yesterday, and no further procedures were recommended. He has had several colonoscopies since January 2019, when he was diagnosed with colon cancer. PHYSICAL EXAMINATION: Temperature 97.6 degrees Fahrenheit, heart rate 86 per minute, respiratory rate 18 per minute, blood pressure 141/77 mm of mercury, and oxygen saturation 98% on room air. His head is atraumatic. Neck supple and without jugular venous distention (JVD) or thyroid enlargement. Heart sounds regular and lungs clear to auscultation. Abdomen soft and nontender. Bowel sounds normal. Extremities without any cyanosis or clubbing. Today's labs show WBC count 10.9, hemoglobin 9.5, and hematocrit 33.1. Sodium 143, potassium 3.5, CO2 of 29, BUN 30, and creatinine 3.69. Calcium level 8.2 and phosphorus 1.9. PROBLEMS: 1. End-stage renal disease. The patient has been dialyzed on Saturday, , and Saturday schedule. He will be dialyzed this afternoon. 2. Hypokalemia. We will use a 4.0 mEq potassium bath today for his dialysis. Hypokalemia is most likely related to recurrent loose stools. 3. Rectal bleeding and acute blood loss anemia. He does have slight decrease in his hemoglobin compared to yesterday. The patient is also on Eliquis 2.5 mg twice a day due to stroke. We will give him Aranesp 200 mcg today with dialysis. I do not feel that at this point transfusion is indicated. He is also receiving intravenous Venofer 100 mg with each dialysis. 4. Hypertension. Blood pressure is well controlled, and no changes are being made today. DISPOSITION: From a renal standpoint, the patient has been doing well and can be discharged when he is considered stable from a rehabilitation standpoint.
[2019-10-01 20:29] VITALS: BP 135/69
[2019-10-02 06:30] VITALS: BP 164/78
[2019-10-02] MEDS: HumaLOG INSULIN (NovoLOG) PER UNIT SC SCH (07:30)
[2019-10-02 08:52] VITALS: BP 164/78
[2019-10-02] MEDS: ATORVASTATIN 20 MG TAB PO SCH (08:52)
[2019-10-02] MEDS: APIXABAN 2.5 MG TAB (ELIQUIS) PO SCH (08:52)
[2019-10-02] MEDS: FOLIC ACID 1 MG TAB PO SCH (08:52)
[2019-10-02] MEDS: METOPROLOL TART 25 MG TABLET PO SCH (08:52)
[2019-10-02] MEDS: CALCIUM ACETATE 667 MG GELCAP PO SCH (08:52)
[2019-10-02] MEDS: ACETAMINOPHEN 500 MG TAB PO SCH (08:52)
[2019-10-02] MEDS: PANTOPRAZOLE 40MG TAB (PROTONIX) PO SCH (08:52)
[2019-10-02] MEDS: LACTOBACILLUS ACIDOPHILUS CAP (BACID) PO SCH (08:52)
[2019-10-02] MEDS: CitaloPRAM (CeleXA) 20 MG TAB PO SCH (08:52)
[2019-10-02] MEDS: TETRAHYDROZOLINE OPHTH 0.05% 15 ML BTL OU SCH (08:53)
[2019-10-02] MEDS: LEVEMIR (INSULIN DETEMIR) 1 UNITS/0.01ML SC SCH (08:53)
[2019-10-02] MEDS ORDERED: CELE20TA PO (10:48)
[2019-10-02] MEDS ORDERED: RISATAB3 PO (10:48)
[2019-10-02] MEDS ORDERED: ATOR1TAB21 PO (10:48)
[2019-10-02] MEDS ORDERED: LEVE1INJ5 SQ (10:48)
[2019-10-02] MEDS ORDERED: ELIQ2.5T PO (10:48)
[2019-10-02] MEDS ORDERED: METO1TAB87 PO (10:48)
[2019-10-02] MEDS ORDERED: CALC1CAP PO (10:48)
[2019-10-02] MEDS ORDERED: PANT40TA3 PO (10:48)
[2019-10-02] MEDS ORDERED: FOLI1TAB11 PO (10:48)
[2019-10-02] MEDS ORDERED: PREPOI TOP (10:48)
[2019-10-02 10:58] LABS: BASO # 0.1 10^3/uL (0.0-0.2); BASO % 1.1 % (0.0-1.0); EOS # 0.3 10^3/uL (0.0-0.5); EOS % 2.3 % (0.0-3.0); HEMOGLOBIN 11.3 g/dl (13.5-17.5); LYMPH # 1.1 10^3/uL (1.5-5.0); LYMPH % 8.6 % (24.0-44.0); MEAN CORPUSCULAR HEMOGLOBIN 29.4 pg (27.0-33.0); MEAN CORPUSCULAR VOLUME 101.6 fl (80.0-96.0); MONO # 0.9 10^3/uL (0.0-0.8); MONO % 7.3 % (0.0-5.0); NEUTROPHILS # 9.9 10^3/uL (1.5-8.5); NEUTROPHILS % 79.2 % (36.0-66.0); PLATELET COUNT, AUTOMATED 197 10^3/uL (150-450); RED BLOOD COUNT 3.84 10^6/uL (4.30-6.10); WHITE BLOOD COUNT 12.5 10^3/uL (4.0-10.0)
== END 2019-10-02 11:45 | disposition home health service (06) | DRG 56 ==
LOC: M PM&R 12:50
PROVIDERS: ADMIT Physical Medicine & Rehabilitation; ATTEND Physical Medicine & Rehabilitation
PROC: 5A1D70Z Performance of Urinary Filtration, Intermittent, Less than 6 Hours Per Day (ICD-10-PCS; principal; 2019-09-15)
PROC: 30233N1 Transfusion of Nonautologous Red Blood Cells into Peripheral Vein, Percutaneous Approach (ICD-10-PCS; 2019-10-01)
DX: I69.351 Hemiplegia and hemiparesis following cerebral infarction affecting right dominant side (principal); N18.6 End stage renal disease; I13.2 Hypertensive heart and chronic kidney disease with heart failure and with stage 5 chronic kidney disease, or end stage renal disease; C78.7 Secondary malignant neoplasm of liver and intrahepatic bile duct; I50.32 Chronic diastolic (congestive) heart failure; D62 Acute posthemorrhagic anemia; K62.5 Hemorrhage of anus and rectum; E87.1 Hypo-osmolality and hyponatremia; E87.2 Acidosis; I69.320 Aphasia following cerebral infarction; I73.9 Peripheral vascular disease, unspecified; E78.5 Hyperlipidemia, unspecified; K64.8 Other hemorrhoids; E11.22 Type 2 diabetes mellitus with diabetic chronic kidney disease; F17.210 Nicotine dependence, cigarettes, uncomplicated; E11.51 Type 2 diabetes mellitus with diabetic peripheral angiopathy without gangrene; E87.6 Hypokalemia; F32.9 Major depressive disorder, single episode, unspecified; I48.91 Unspecified atrial fibrillation; I35.0 Nonrheumatic aortic (valve) stenosis; R19.7 Diarrhea, unspecified; D63.1 Anemia in chronic kidney disease; Z90.49 Acquired absence of other specified parts of digestive tract; Z85.038 Personal history of other malignant neoplasm of large intestine; Z99.2 Dependence on renal dialysis; Z79.01 Long term (current) use of anticoagulants; Z79.4 Long term (current) use of insulin; Z79.899 Other long term (current) drug therapy; Z92.21 Personal history of antineoplastic chemotherapy; Z88.8 Allergy status to other drugs, medicaments and biological substances